=== PATIENT | female | born 1940 | race Caucasian/White ===

== ENCOUNTER → 2018-01-31 09:54 | Outpatient (CLI) | payer MEDICARE, OTHER, SELFPAY ==
[2018-01-31 12:13] LABS: Absolute Lymphocyte Count 1.72 X10^3/ul (0.83-4.51); Absolute Neutrophil Count 4.3 X10^3/uL (2.0-7.7); Basophil# 0.02 X10^3/uL; Basophil% 0.3 % (0-1); Eosinophil# 0.09 X10^3/uL; Eosinophils% 1.3 % (0-5); Hematocrit 40.6 % (37-47); Hemoglobin 13.2 g/dl (12.0-15.0); Lymphocyte # 1.72 X10^3/ul (4.0); Lymphocyte % 25.6 % (19-41); Mean Corp Hgb Conc 32.5 g/gl (32-36); Mean Corpuscular Hgb 31.5 pg (27.0-32.0); Mean Corpuscular Volume 96.9 fL (81-99); Mean Platelet Vol. 10.6 fl (6.2-12.0); Monocyte# 0.55 X10^3/uL; Monocyte% 8.2 % (0-10); Neutrophil # 4.32 X10^3/uL (2.7-7.7); Neutrophil % 64.5 % (47-70); Platelet Count 205 K/mm3 (150-450); RBC Distribution Width CV 12.2 % (11.6-14.6); RBC Distribution Width SD 41.9 fl (35.1-43.9); Red Blood Count 4.19 M/mm3 (4.2-5.4); White Blood Count 6.7 K/mm3 (4.4-11.0)
[2018-01-31 12:25] LABS: POSITIVE COUNT NO; POSITIVE DIFFERENTIAL NO; POSITIVE MORPHOLOGY NO
[2018-01-31 12:36] LABS: Albumin, Serum 3.5 g/dL (3.2-5.0); BUN 19 mg/dL (7-18); BUN/Creat Ratio 17.8 RATIO (10-20); Calcium,Total 8.6 mg/dL (8.5-10.1); Chloride 105 mmol/L (98-107); Cholesterol 179 mg/dL (200); Creatinine, Serum 1.07 mg/dL (0.55-1.02); EST Glomerular Filtration Rate 53 mL/min (>60); Est Glom Filt Rate - Afr Amer 64 mL/min (>60); Glucose 92 mg/dL (74-106); High Density Lipoprotein 60 mg/dL; Phosphorus 3.4 mg/dL (2.5-4.9); Potassium 4.2 mmol/L (3.5-5.1); Sodium Level 142 mmol/L (136-145); Thyroid Stim Hormone (TSH) 2.55 uIU/mL (0.358-3.74); Triglycerides 94 mg/dL; Very Low Density Lipoprotein 19 mg/dL (5-40)
== END ==
PROVIDERS: Family Provider Family Medicine; PCP Family Medicine; Visit Provider Family Medicine
DX: N18.2 Chronic kidney disease, stage 2 (mild) (principal)
CPT/HCPCS: 36415; 80061; 80069; 84443; 85025

== ENCOUNTER 2018-05-18 11:24 | Emergency (ER) | payer MEDICARE, OTHER, SELFPAY ==
[2018-05-18 11:36] VITALS: BP 158/97; PULSE 101; RESP 19; TEMP 36.8; O2SAT 98; BMI 27.1
[2018-05-18] MEDS: Diphth,Pertuss(Acell),Tet Vac 0.5 ML Vial IM (12:48)
--- NOTE | 2018-05-18 13:32 | ED.DCSUM_ITS ---
- ER Visit Summary Date of Service: 05/18/18 Chief Complaint: Laceration History of Present Illness: The patient is a [address] Raji Sams. She reports that just prior to coming emergency department she went to shut the car door and the corner but caught the back of her right leg causing a laceration. She reports she has pain that is 1 out of 10 severity. Her tetanus is not up-to-date. She denies any paresthesias distally or other injuries. Physical Examination: Vitals: Stable. Afebrile. General: Well-nourished and well-developed. Head: Normocephalic atraumatic. Neck: Supple, no lymphadenopathy. No JVD. Nontender. Cardiovascular: Regular rate and rhythm. No murmurs. Respiratory: No respiratory distress. Clear to auscultation bilaterally. Abdominal: Soft, nontender, nondistended, normal bowel sounds. No guarding, rebound, or peritoneal signs. Back: Nontender. Extremities: 8 cm laceration to the back of her right leg. No active bleeding. She is neurovascular intact distally. Skin: Normal color, no rash. Neurologic: Alert and oriented ?3. Cranial nerves II through XII are intact. Normal strength and sensation. Psych: Normal affect. Emergency Department Course and Treatment: Patient had her tetanus updated. She had the wound anesthetized and repaired. She tolerated it well. Treatment Plan: Patient will be discharged instructions with Dr. Raji Sams in 2 weeks for suture removal. Return to the emergency department for any worsening symptoms. Disposition: To home in improved and stable condition. Impression: 1. Laceration right leg, 8 cm, repaired. Procedure note: Wound was cleansed with chlorhexidine soap. Anesthetized with 1% lidocaine without epinephrine. Copiously irrigated with normal saline. Wound was explored there is no foreign material present. It was closed with 8 simple interrupted 4- 0 ethilon sutures. The patient tolerated it well. This note was generated with [employer] dictation software. It may contain incorrect words, spelling, and punctuation that were not noted in review of the chart prior to signing ED Disposition - Plan for ED Patient: Chief Complaint: Laceration Instructions: ED Laceration Ext Sutr Stap Tape Referrals: Raji Sams MD [Primary Care Provider] - 10-14 Days suture removal
[2018-05-18 14:20] VITALS: BP 138/94; PULSE 72; RESP 15; O2SAT 98
== END 2018-05-18 14:22 | disposition home or self-care (01) ==
PROVIDERS: Emergency Provider Emergency Medicine; Family Provider Family Medicine; PCP Family Medicine
DX: S81.811A Laceration without foreign body, right lower leg, initial encounter (principal); W26.8XXA Contact with other sharp object(s), not elsewhere classified, initial encounter; Y93.9 Activity, unspecified; Y92.9 Unspecified place or not applicable; I10 Essential (primary) hypertension; Z79.899 Other long term (current) drug therapy
CPT/HCPCS: 12004; 90471; 90715; 99284

== ENCOUNTER → 2018-08-10 10:33 | Outpatient (CLI) | payer MEDICARE, OTHER, SELFPAY ==
[2018-08-10 12:14] LABS: Vitamin D,25 Hydroxy 34.1 ng/mL (29.95-100.01)
[2018-08-10 12:28] LABS: AST(SGOT) 31 U/L (15-37); Alanine Aminotransfer ALT/SGPT 22 U/L (13-56); Albumin, Serum 3.6 g/dL (3.2-5.0); Alkaline Phosphatase 99 U/L (45-117); Anion Gap 9 (5-15); BUN 20 mg/dL (7-18); BUN/Creat Ratio 18.9 RATIO (10-20); Calcium,Total 8.4 mg/dL (8.5-10.1); Chloride 106 mmol/L (98-107); Creatinine, Serum 1.06 mg/dL (0.55-1.02); EST Glomerular Filtration Rate 53 mL/min (>60); Est Glom Filt Rate - Afr Amer 65 mL/min (>60); Globulin 3.6 g/dL (2.2-4.2); Glucose 90 mg/dL (74-106); Potassium 4.2 mmol/L (3.5-5.1); Protein, Total 7.2 g/dL (6.4-8.2); Sodium Level 141 mmol/L (136-145); Thyroid Stim Hormone (TSH) 2.66 uIU/mL (0.358-3.74)
--- OUTSIDE RECORDS SUMMARY | 2018-10-15 05:38 | XMS RPT_ITS ---
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) / Hospital N18.2(ICD-10) Repository PROCEDURES PROCEDURES No Procedure Records FoundRESULTS RESULTS VITAMIN D,25 HYDROXY Collected: 08/10/2018 Status: F Source: [place] 10:38 AM [facility] REPOSITORY Order Comment: Order Date: 02/14/18 Order Info: [id number] - VITD25 TYPE CODE TESTS RESULT OUT OF RANGE REFERENCE UNITS LAB L506.1000 29.95-100.01 ng/mL Normal Vitamin D 34.1 25-OH Result Comment: Vitamin D 25(OH) Status Range Deficiency <20 ng/mL (50nmol/L) Insuffciency 20 - 30 ng/mL (50 - 75 nmol/L) Sufficiency 30 - 100 ng/mL (75 - 250 nmol/L) Toxicity >100 ng/mL (>250 nmol/L) Performed By: #### L506.1000, L500.4050, L501.9520 #### [facility] [address] [place], [address] COMPREHENSIVE METABOLIC Collected: 08/10/2018 Status: F Source: [place] BASS 10:38 AM [facility] REPOSITORY Order Comment: Order Date: 02/14/18 Order Info: [id number] - CMP Order Info: [id number] - TSH TYPE CODE TESTS RESULT OUT OF RANGE REFERENCE UNITS LAB L501.0100 74-106 mg/dL Normal GLU 90 Result Comment: Please note revised GLUCOSE reference range effective 2017. LAB L501.1000 7-18 mg/dL High BUN 20 LAB L501.1100 0.55-1.02 mg/dL High CREAT,SERUM 1.06 Result Comment: The validity of the calculated GFR AND GFRAA in patients over 70 years has not been determined. Clinical correlation is essential. LAB L501.1110 >60 mL/min Low EST GFR 53 Result Comment: Non- GFR Calc LAB L501.1115 >60 mL/min Normal EST GFR - AA 65 Result Comment: GFR Calc LAB L501.1300 10-20 RATIO Normal BUN/CRE 18.9 LAB L501.1500 6.4-8.2 g/dL T Normal PROT 7.2 LAB L501.1800 3.2-5.0 g/dL Normal ALB 3.6 LAB L501.1950 2.2-4.2 g/dL Normal GLOB 3.6 LAB L501.2000 0.9-2.4 RATIO Normal A/G 1.0 LAB L501.2200 8.5-10.1 mg/dL Low CA 8.4 LAB L501.4100 15-37 U/L Normal AST 31 LAB L501.4305 45-117 U/L Normal ALK P 99 LAB L501.4405 13-56 U/L Normal ALT 22 LAB L501.4600 0.20-1.00 mg/dL High T BILI 1.90 LAB L501.5300 136-145 mmol/L NA Normal 141 LAB L501.5600 3.5-5.1 mmol/L K Normal 4.2 LAB L501.5900 98-107 mmol/L CL Normal 106 LAB L501.6100 21.0-32.0 mmol/L Normal CO2 26.0 LAB L501.6200 5-15 Normal GAP 9 Performed By: #### L506.1000, L500.4050, L501.9520 #### [facility] [address] [place], [address] THYROID STIM HORMONE Collected: 08/10/2018 Status: F Source: [place] (TSH) 10:38 AM [facility] REPOSITORY Order Comment: Order Date: 02/14/18 Order Info: [id number] - CMP Order Info: 3016-3 - TSH TYPE CODE TESTS RESULT OUT OF RANGE REFERENCE UNITS LAB L501.9520 0.358-3.74 uIU/mL Normal TSH 2.66 Performed By: #### L506.1000, L500.4050, L501.9520 #### [facility] [address] [place], [address] EMERGENCY DEPARTMENT Observed: 05/18/2018 Status: F Source: [place] SUMMARY 6:15 PM [facility] REPOSITORY [facility] Medical Records Department [address] [place] [address] Emergency Department Summary 05/18/18 1258 MR#: [id number] Acct: [id number] Name: DREW BROWNE I Rep #: [id number] : 1940 77 From: Desmond Auguste MD PCP: Raji Sams MD Status: DEP ER - ER Visit Summary Date of Service: 05/18/18 Chief Complaint: Laceration History of Present Illness: The patient is a [address] Raji Sams. She reports that just prior to coming emergency department she went to shut the car door and the corner but caught the back of her right leg causing a laceration. She reports she has pain that is 1 out of 10 severity. Her tetanus is not up-to-date. She denies any paresthesias distally or other injuries. Physical Examination: Vitals: Stable. Afebrile. General: Well-nourished and well-developed. Head: Normocephalic atraumatic. Neck: Supple, no lymphadenopathy. No JVD. Nontender. Cardiovascular: Regular rate and rhythm. No murmurs. Respiratory: No respiratory distress. Clear to auscultation bilaterally. Abdominal: Soft, nontender, nondistended, normal bowel sounds. No guarding, rebound, or peritoneal signs. Back: Nontender. Extremities: 8 cm laceration to the back of her right leg. No active bleeding. She is neurovascular intact distally. Skin: Normal color, no rash. Neurologic: Alert and oriented 3. Cranial nerves II through XII are intact. Normal strength and sensation. Psych: Normal affect. Emergency Department Course and Treatment: Patient had her tetanus updated. She had the wound anesthetized and repaired. She tolerated it well. Treatment Plan: Patient will be discharged instructions with Dr. Raji Sams in 2 weeks for suture removal. Return to the emergency department for any worsening symptoms. Disposition: To home in improved and stable condition. Impression: 1. Laceration right leg, 8 cm, repaired. Procedure note: Wound was cleansed with chlorhexidine soap. Anesthetized with 1% lidocaine without epinephrine. Copiously irrigated with normal saline. Wound was explored there is no foreign material present. It was closed with 8 simple interrupted 4-0 ethilon sutures. The patient tolerated it well. This note was generated with [employer] dictation software. It may contain incorrect words, spelling, and punctuation that were not noted in review of the chart prior to signing ED Disposition - Plan for ED Patient: Chief Complaint: Laceration Instructions: ED Laceration Ext Sutr Stap Tape Referrals: Raji Sams MD [Primary Care Provider] - 10-14 Days suture removal What to do if you have Problems For any increased pain, shortness of breath, bleeding, nausea or vomiting, chest pain, or any unexpected problems, contact your Primary Care Provider. Call [facility] ([phone]) or report to the closest Emergency Room. Call 911 if necessary. 05/18/18 2459 <Electronically signed by Desmond Auguste MD> Date Desmond Auguste MD Cosigner Signature (If Indicated): Date CC: Raji Sams MD CBC W/DIFF, AUTOMATED Collected: 01/31/2018 Status: F Source: [place] 10:00 AM [facility] REPOSITORY TYPE CODE TESTS RESULT OUT OF RANGE REFERENCE UNITS LAB L100.1000 4.4-11.0 K/mm3 Normal WBC 6.7 LAB L100.1200 4.2-5.4 M/mm3 Low RBC 4.19 LAB L100.1300 12.0-15.0 g/dl Normal HGB 13.2 LAB L100.1400 37-47 % Normal HCT 40.6 LAB L100.1500 81-99 fL Normal MCV 96.9 LAB L100.1600 27.0-32.0 pg Normal MCH 31.5 LAB L100.1700 32-36 g/gl Normal MCHC 32.5 LAB L100.1810 11.6-14.6 % Normal RDW CV 12.2 LAB L100.1820 35.1-43.9 fl Normal RDW SD 41.9 LAB L100.1900 150-450 K/mm3 Normal PLT 205 LAB L100.2000 6.2-12.0 fl Normal MPV 10.6 LAB L100.2100 47-70 % Normal NEUT% 64.5 LAB L100.2200 19-41 % Normal LY% 25.6 LAB L100.2300 0-10 % Normal MONO% 8.2 LAB L100.2400 0-5 % Normal EO% 1.3 LAB L100.2500 0-1 % Normal BASO% 0.3 LAB L100.2550 0.0-0.9 % Normal IM GRAN % 0.100 Result Comment: IG% - Immature Granulocytes (promyelocytes, myelocytes and metamyelocytes) > 1% indicates that a LEFT SHIFT is Present. LAB L100.2620 2.0-7.7 X10 3/uL Normal Absolute Neut 4.3 LAB L100.2720 0.83-4.51 X10 3/ul Normal Absolute Lymph 1.72 Performed By: #### L100.0100 #### [facility] [address] [place], [place], [id number] RENAL PROFILE Collected: 01/31/2018 Status: F Source: [place] 10:00 AM [facility] REPOSITORY TYPE CODE TESTS RESULT OUT OF RANGE REFERENCE UNITS LAB L501.0100 74-106 mg/dL Normal GLU 92 Result Comment: Please note revised GLUCOSE reference range effective 2017. LAB L501.1000 7-18 mg/dL High BUN 19 LAB L501.1100 0.55-1.02 mg/dL High CREAT,SERUM 1.07 Result Comment: The validity of the calculated GFR AND GFRAA in patients over 70 years has not been determined. Clinical correlation is essential. LAB L501.1110 >60 mL/min Low EST GFR 53 Result Comment: Non- GFR Calc LAB L501.1115 >60 mL/min Normal EST GFR - AA 64 Result Comment: GFR Calc LAB L501.1300 10-20 RATIO Normal BUN/CRE 17.8 LAB L501.1800 3.2-5.0 g/dL Normal ALB 3.5 LAB L501.2200 8.5-10.1 mg/dL CA Normal 8.6 LAB L501.2300 2.5-4.9 mg/dL Normal PHOS 3.4 LAB L501.5300 136-145 mmol/L NA Normal 142 LAB L501.5600 3.5-5.1 mmol/L K Normal 4.2 LAB L501.5900 98-107 mmol/L CL Normal 105 LAB L501.6100 21.0-32.0 mmol/L Normal CO2 27.0 Performed By: #### L500.3600, L500.4100, L501.9520 #### [facility] [address] [place], [address] LIPID PROFILE Collected: 01/31/2018 Status: F Source: [place] 10:00 AM [facility] REPOSITORY TYPE CODE TESTS RESULT OUT OF RANGE REFERENCE UNITS LAB L501.4900 200 mg/dL Normal CHOL 179 Result Comment: <200 mg/dL Desirable 200-240 mg/dL Borderline >240 mg/dL High Risk LAB L501.5000 mg/dL Normal TRIG 94 Result Comment: The drugs N-Acetylcysteine and Metamizole may falsely depress this assay. Serum Triglycerides Reference Interval Normal <150 mg/dL Borderline high 150 - 199 mg/dL High 200 - 499 mg/dL Very High > or = 500 mg/dL LAB L501.6400 mg/dL Normal HDL 60 Result Comment: The drugs N-Acetylcysteine and Metamizole may falsely depress this assay. Reference Range HDL <40 mg/dL Low HDL Cholesterol HDL >or= 60 mg/dL High HDL Cholesterol LAB L501.6500 0-130 mg/dL Normal LDL 100 LAB L501.6600 5-40 mg/dL Normal VLDL 19 Performed By: #### L500.3600, L500.4100, L501.9520 #### [facility] [address] [place], [address] THYROID STIM HORMONE Collected: 01/31/2018 Status: F Source: [place] (TSH) 10:00 AM [facility] REPOSITORY TYPE CODE TESTS RESULT OUT OF RANGE REFERENCE UNITS LAB L501.9520 0.358-3.74 uIU/mL Normal TSH 2.55 Performed By: #### L500.3600, L500.4100, L501.9520 #### [facility] [address] [facility] [place], [address] ALLERGIES ALLERGIES DATE TYPE / CODE NAME / CODE REACTION SEVERITY SOURCE 09/25/2015 Drug No Known Unknown [facility] Allergy/4160 Allergies/F00 Hospital 70530(SNOMED 3903593(RXNOR Repository CT) M) ENCOUNTERS ENCOUNTERS ADMIT/DISCHARGE ACCOUNT ADMITTING ENCOUNTER LOCATION SOURCE NUMBER CLASS 08/10/2018 [id number] Ambulatory [place] 5 [facility] ing:MFPLAB Repository 05/18/2018/ [id number] [place] 1 [facility] ing:ED Repository 01/31/2018 [id number] Ambulatory [place] 9 [facility] ing:MFPLAB Repository PAYERS PAYERS ENCOUNTER GUARANTOR PAYER SUBSCRIBER SOURCE 08/10/2018 QUANG Primary DREW I [place] [id number] Insurance:MEDICARE STEINERDOB: [facility] [id number] Repository [address]Yol: [phone] [id number] [phone] () Date:2018-08-10 08/10/2018 Secondary DREW I [place] Insurance:MEDICO STEINERDOB: [facility] CORPPolicy Number: [id number] Hospital [id number] Repository Date:7097-10-63[address] [address] [address]TI: 08/10/2018 Tertiary NOT GIVENUNK [place] Insurance:SELF PAY [facility] Number: Effective Repository Date:2018-08-10 05/18/2018 QUANG Primary DREW BROWNEDOB: [place] [id number] Insurance:MEDICARE [id number] [facility] PART [address] [place], [place] Number: Repository [address]Bdd: 330 [id number] [phone] () Date:2018-05-18 05/18/2018 Secondary DREW VIOLETTEERDOB: [place] Insurance:GPM [id number] Number: [facility] [id number] Repository Date:[id number] [employer] [address], [place] [address]YD: 05/18/2018 Tertiary NOT GIVENUNK [place] Insurance:SELF PAY [facility] Number: Effective Repository Date:2018-05-18 01/31/2018 Quang Primary DREW BROWNEDOB: [place] [id number] Insurance:MEDICARE [id number] [facility] [address] [place], [place] Number: Repository [id number]: 330 [id number] [phone] () Date:2018-01-31 01/31/2018 Secondary DREW VIOLETTEERDOB: [place] Insurance:GPM [id number] [facility] [id number] Repository Date:1954-54-27PDPOIG EMENT [address], [place] [address]WI: 01/31/2018 Tertiary NOT GIVENUNK [place] Insurance:SELF PAY [facility] Number: Effective Repository Date:2018-01-31
== END ==
PROVIDERS: Family Provider Family Medicine; PCP Family Medicine; Visit Provider Family Medicine
DX: N18.2 Chronic kidney disease, stage 2 (mild) (principal)
CPT/HCPCS: 36415; 80053; 82306; 84443

== ENCOUNTER → 2019-02-02 | Outpatient (CLI) | payer MEDICARE, OTHER, SELFPAY ==
[2019-02-02 14:33] LABS: ALB/GLOB Ratio 0.9 RATIO (0.9-2.4); AST(SGOT) 25 U/L (15-37); Alanine Aminotransfer ALT/SGPT 24 U/L (13-56); Albumin, Serum 3.5 g/dL (3.2-5.0); Alkaline Phosphatase 87 U/L (45-117); Anion Gap 7 (5-15); BUN 23 mg/dL (7-18); BUN/Creat Ratio 21.5 RATIO (10-20); Calcium,Total 8.9 mg/dL (8.5-10.1); Chloride 107 mmol/L (98-107); Creatinine, Serum 1.07 mg/dL (0.55-1.02); EST Glomerular Filtration Rate 53 mL/min (>60); Est Glom Filt Rate - Afr Amer 64 mL/min (>60); Globulin 3.8 g/dL (2.2-4.2); Glucose 87 mg/dL (74-106); Protein, Total 7.3 g/dL (6.4-8.2); Sodium Level 142 mmol/L (136-145)
[2019-02-02 14:47] LABS: Microalbumin,Random Urine 5.6 mg/L (NO RANGE EST.); Microalbumin:Creatinine Ratio 6.3 mg/g CRE (<30 mg/g CRE)
== END | disposition home or self-care (01) ==
LOC: MFPLAB 11:34
PROVIDERS: Family Provider Family Medicine; PCP Family Medicine; Visit Provider Family Medicine
DX: N18.2 Chronic kidney disease, stage 2 (mild) (principal)
CPT/HCPCS: 36415; 80053; 82043; 82570

== ENCOUNTER → 2019-08-15 10:30 | Outpatient (CLI) | payer MEDICARE, OTHER, SELFPAY ==
[2019-08-15 12:36] LABS: Anion Gap 2 (5-15); BUN 18 mg/dL (7-18); BUN/Creat Ratio 17.6 RATIO (10-20); Calcium,Total 9.2 mg/dL (8.5-10.1); Chloride 108 mmol/L (98-107); Cholesterol 176 mg/dL (200); Creatinine, Serum 1.02 mg/dL (0.55-1.02); EST Glomerular Filtration Rate 56 mL/min (>60); Est Glom Filt Rate - Afr Amer 67 mL/min (>60); Glucose 89 mg/dL (74-106); High Density Lipoprotein 59 mg/dL; Potassium 4.3 mmol/L (3.5-5.1); Sodium Level 141 mmol/L (136-145); Triglycerides 94 mg/dL; Very Low Density Lipoprotein 19 mg/dL (5-40)
[2019-08-15 14:31] LABS: Microalbumin,Random Urine < 5.0 mg/L (NO RANGE EST.)
== END ==
PROVIDERS: PCP Family Medicine; Visit Provider Family Medicine
DX: I10 Essential (primary) hypertension (principal)
CPT/HCPCS: 36415; 80048; 80061; 82043; 82570

== ENCOUNTER → 2019-09-27 10:36 | Outpatient (CLI) | payer MEDICARE, OTHER, SELFPAY ==
--- NOTE | 2019-09-27 10:44 | BI_ITS ---
MAMMOGRAPHY - BILATERAL SCREENING REASON FOR EXAM: Female, 79 years old. Routine annual screening examination. PERTINENT HISTORY: Non-contributory. TECHNIQUE: Digital bilateral breast conner (3D mammographic acquisition) in the CC and MLO projections. 2-D mediolateral oblique (MLO) and craniocaudad (CC) views of both breasts were obtained. CAD: Full Field Digital Mammography with Computer Added Detection was performed. COMPARISON: Comparison is made with prior study dated April 21, 2016 and March 14, 2015. FINDINGS: Breast Composition: There are scattered areas of fibroglandular density. There are no dominant masses or suspicious calcifications. No other significant abnormalities are identified. There has been no significant change since the prior study. BI/SCREEN MAMM (CAD) W/CONNER BILAT IMPRESSION: Stable bilateral screening mammogram. Yearly follow-up mammogram recommended. (A) ASSESSMENT CATEGORY: BIRADS Category 1: Negative. A letter regarding these results will be sent to the patient by the facility within 30 days. Approximately 10% of breast cancers are not detected by mammography. A normal mammogram should not delay biopsy of a clinically suspicious abnormality. [id number] Electronically Signed: Alexy Samson, at 13:40 EST , Service support ,
== END ==
PROVIDERS: PCP Family Medicine; Referring Provider Family Medicine; Visit Provider Family Medicine
DX: Z00.00 Encounter for general adult medical examination without abnormal findings (principal); Z12.31 Encounter for screening mammogram for malignant neoplasm of breast
CPT/HCPCS: 77063; 77067

== ENCOUNTER → 2020-03-04 11:52 | Outpatient (CLI) | payer MEDICARE, OTHER, SELFPAY | PROVIDERS: PCP Family Medicine; Visit Provider Family Medicine | DX: Z00.00 Encounter for general adult medical examination without abnormal findings (principal) ==

== ENCOUNTER → 2020-03-13 17:07 | Outpatient (CLI) | payer MEDICARE, OTHER, SELFPAY ==
--- NOTE | 2020-03-13 17:10 | RAD_ITS ---
STUDY: X-RAY - LEFT KNEE REASON FOR EXAM: Female, 79 years old. osteoarthritis of knees TECHNIQUE: 4 view(s) of the knee. COMPARISON: 03/06/2013 FINDINGS: Normal visualized distal femur. Normal visualized proximal tibia and fibula. Normal proximal tibiofibular articulation. Normal medial femorotibial compartment. There is severe degenerative arthrosis of the lateral femorotibial compartment with severe joint space narrowing. There is mild degenerative arthrosis of the patellofemoral articulation. The soft tissue structures are unremarkable. RAD/Knee 4 or More Views IMPRESSION: Bicompartmental osteoarthritis as described. Electronically Signed: Félix Robbins MD at 22:35 EDT Tel , Service support ,
--- NOTE | 2020-03-13 17:10 | RAD_ITS ---
STUDY: X-RAY - PELVIS AND RIGHT HIP REASON FOR EXAM: Female, 79 years old. osteoarthritis of right hip TECHNIQUE: 2 views of the pelvis and hip. COMPARISON: 10/08/2015 FINDINGS: There is a non-specific bowel gas pattern. Normal visualized soft tissue structures. Normal bilateral iliac wings, sacroiliac joints and visualized sacrum. Normal bilateral superior and inferior pubic rami. Normal pubic symphysis. Normal bilateral ischial tuberosities. Left hip arthroplasty with normal alignment. Severe right hip osteoarthritis. Pelvic phleboliths. RAD/HIP, UNI W/ Pelvis 2-3 Views IMPRESSION: Severe right hip osteoarthritis. Electronically Signed: Félix Robbins MD at 20:53 EDT Tel , Service support ,
--- NOTE | 2020-03-13 17:10 | RAD_ITS ---
STUDY: X-RAY - RIGHT KNEE REASON FOR EXAM: Female, 79 years old. osteoarthritis of knees TECHNIQUE: 4 view(s) of the knee. COMPARISON: 03/06/2013 FINDINGS: Normal visualized distal femur. Normal visualized proximal tibia and fibula. Normal proximal tibiofibular articulation. There is mild degenerative arthrosis of the medial femorotibial compartment. There is mild degenerative arthrosis of the lateral femorotibial compartment. There is moderate degenerative arthrosis of the patellofemoral articulation. The soft tissue structures are unremarkable. RAD/Knee 4 or More Views IMPRESSION: Tricompartmental osteoarthritis as described. Electronically Signed: Félix Robbins MD at 22:28 EDT Tel , Service support ,
== END ==
PROVIDERS: PCP Family Medicine; Referring Provider Family Medicine; Visit Provider Family Medicine
DX: M16.11 Unilateral primary osteoarthritis, right hip (principal); M17.0 Bilateral primary osteoarthritis of knee
CPT/HCPCS: 73502; 73564

== ENCOUNTER → 2020-06-11 13:24 | Outpatient (CLI) | payer MEDICARE, OTHER, SELFPAY ==
[2020-06-10 13:52] VITALS: BMI 28.5
== END ==
PROVIDERS: PCP Family Medicine; Referring Provider Surgery; Visit Provider Surgery
DX: Z86.010 Personal history of colon polyps (principal); Z80.0 Family history of malignant neoplasm of digestive organs
CPT/HCPCS: 82274

== ENCOUNTER 2020-09-06 09:23 | Outpatient (RCR) | payer MEDICARE, OTHER, SELFPAY ==
[2020-06-10 13:52] VITALS: BMI 28.5
== END 2020-09-06 23:59 ==
LOC: IMMUN 09:23
PROVIDERS: PCP Family Medicine; Referring Provider Family Medicine; Visit Provider Family Medicine
DX: Z23 Encounter for immunization (principal)
CPT/HCPCS: 0011A; 0012A

== ENCOUNTER 2020-10-09 06:56 | Observation (INO) | payer MEDICARE, OTHER, SELFPAY ==
[2020-06-10 13:52] VITALS: BMI 28.5
--- NOTE | 2020-09-25 12:39 | PCM.HP.BLA ---
History and Physical History and Physical [facility] Patient Name: Emily Ortez : 1940 From: ART MONTERO PA-C DATE OF SURGERY: 10/09/2020 SCHEDULED PROCEDURE: right total hip arthroplasty and left knee corticosteroid injection HISTORY OF PRESENT ILLNESS: Preoperative history and physical exam was performed on September 25, 2020. This is a 80-year-old female who is had ongoing pain in the right hip were over 5 years. This is been getting more progressive with pain over the past several months. She has had continued pain in bilateral knees as well. Patient's pain can reach as high as a 7/10 and on average 5/10. She has pain that is intermittent, sharp, stabbing, sore. Pain is increased with going up and downstairs. She does complain of right groin pain. She has difficult time with activities of daily living including housework. Patient has attempted rest, elevation as well as physical therapy, home exercises with no relief in symptoms. She has attempted inpatient care manager rn with no relief in symptoms. She has tried [id number] Tylenol without relief. Her pain in the left knee is over the lateral joint line. Patient denies previous surgery on the right hip. She does have previous history of a left direct anterior total hip arthroplasty on October 08, [address] Pablo Lepe. Patient has medical history pertinent for hypertension. Denies any chest pain, shortness of breath, fevers chills, or fevers. We are obtaining surgical clearance from her primary care physician Dr. Sams. After failing conservative measures and discussing treatment options with Dr. Pablo Lepe, the patient does wish to proceed with a right direct anterior total hip arthroplasty and left knee corticosteroid injection. REVIEW OF SYSTEMS: ROS: Const: Denies change in appetite, fever,or weight change. CV: Denies chest pain, heart murmur and irregular heartbeat. Resp: Denies cough, pneumonia, SOB, tuberculosis and wheezing. GI: Reports constipation, but denies diarrhea, difficulty swallowing, heartburn, nausea, bloody stools and vomiting. : Urinary: denies incontinence. Musculo: Reports limp, trouble walking and weakness, but denies leg swelling. Skin: Denies Raynaud's, history of shingles and tattoo. Neuro: Denies ambulatory dysfunction, dizziness, numbness/tingling and tremor. Psych: Reports insomnia, but denies anxiety and stress. Steven/Lymph: Denies anemia, bleeding/bruising tendency and past transfusion. Reviewed and updated. PAST MEDICAL HISTORY: Advance Care Plan: Other Directive, LIVING WILL Effective Date: 08/29/2015 Comments: ROBERT CANTU Other Directive, POA Effective Date: 08/29/2015 Comments: ROBERT CANTU PMH: Medical Problems: Arthritis, Hard of Hearing, High Blood Pressure Accidents: Fracture - LT FOOT - 12 YEARS AGO Surgical Hx: Gallbladder - (2003) @[facility] DR. CLANCY Tonsillectomy - (1952) LT Anterior THR - (10/08/2015) [email or web address] Anesthesia Complications: Vomiting Assistive Devices: Glasses Reviewed, no changes. SOCIAL HISTORY: SH: Marital: .Occupation: Retired.Work Status: Retired.Hand Dominance: Right-handed. Personal Habits: Cigarette Use: Never Smoked Cigarettes.Alcohol: Denies use.Drug Use: Denies Use.Enjoy Exercising: Exercises 1-3 x/month. Reviewed, no changes. VITALS: Ht: 63 Wt: 160lb Wt k.576 BMI: 28.3 BP: 142/90 Pulse: 70 Resp: 15 T: 96.6 T: 35.9C Pain Level: 5 ALLERGIES: Codeine MEDICATIONS: Quinapril HCL 5 mg one PO daily PRE-OP EXAM: General appearance:NORMAL Other: Eyes: Conjunctivae and lids: NORMAL Pupils: ERR Ears, Nose, Mouth, and Throat: NORMAL Other: Inspection of lips, teeth and gums: NORMAL Other: Neck: Examination of neck: no masses noted. Respiratory: Assessment of respiratory effort: NORMAL Other: Auscultation of lungs: clear to auscultation no wheezes, rhonchi or rales. Cardiovascular: Auscultation of heart: regular rate and rhythm, no murmurs, gallops or rubs. Exam of carotid arteries: NORMAL Other: Gastrointestinal: Exam of abdomen: soft, nontender, nondistended bowel sounds present. PHYSICAL EXAMINATION: Right hip is cool to touch without erythema or signs of infection. She has increased pain with range of motion. Flexion 70, internal rotation neutral, external rotation 30. Left knee has valgus alignment with moderate effusion. Range of motion 0 extension 112 flexion. Tenderness to palpation along the lateral joint line. Patient does walk with a slight limping gait. IMAGING STUDIES: X-rays were obtained on September 25, 2020 at [facility] including AP pelvis of the right hip which reveals joint space narrowing, subchondral sclerosis, osteophyte formation consistent with severe hypertrophic osteoarthritis. Left knee x-rays reveal valgus alignment with lateral joint space narrowing, subchondral sclerosis, osteophyte formation consistent with severe tricompartmental osteoarthritis with bony erosions in the lateral compartment. Right knee also reveals valgus alignment with lateral joint space narrowing, subchondral sclerosis, osteophyte formation consistent with severe tricompartmental osteoarthritis. IMPRESSION: 1. Severe right hip osteoarthritis 2. 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 Presence of left total hip arthroplasty 2016 4. 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 Hypertension PLAN: Dr. Pablo Lepe did discuss and review with the patient all treatment options including surgical versus nonsurgical options. Patient does wish to proceed with the above-stated procedure. Potential risks, benefits, and complications of the procedure were discussed in detail including but not limited to , infection, nerve and blood vessel damage, persistent pain, numbness, tingling, paresthesias, blood clot, pulmonary embolism, and requirement for possible further surgery. The patient expressed full understanding and has no further questions for the doctor. Patient does agree to proceed with the above-stated procedure and has signed the surgery consent form. We discussed the current risks associated with COVID 19. This does include the risk of exposure while in the hospital. Patient was reassured local hospitals have low infection rates and are taking all necessary precautions to avoid exposure to patients. In addition, we discussed strategies that can be used to help limit exposure including those that limit the patient's time in the hospital. Also using strategies to limit the patient's need for continued inpatient services after being discharged from the hospital. Patient was notified that we will need to comply with any screening or testing the hospital wishes to perform or that surgery may be delayed for any positive results. This dictation was created using voice recognition software. Phonetic and/or grammatical errors may exist. ___ I have re-examined the patient. There are no clinical changes since date of exam. ___ See progress notes for changes. ___ Dictated on admission Date: Time:
--- NOTE | 2020-09-27 08:49 | EKG12_ITS ---
Test Reason : PRE OP Blood Pressure : / mmHG Vent. Rate : 072 BPM Atrial Rate : 072 BPM P-R Int : 184 ms QRS Dur : 080 ms QT Int : 386 ms P-R-T Axes : 034 -07 034 degrees QTc Int : 422 ms Normal sinus rhythm Low voltage QRS Poor R wave progression Anterior IL, age undetermined, cannot be excluded Borderline ECG Confirmed by PETER ROONEY, BERTO ([id number]), offline editor NAM FRAGOSO ([id number]) on 09/30/2020 2:07:03 PM Referred By: Pablo Lepe Confirmed By:BERTO GREEN MD
[2020-09-27 10:18] LABS: Absolute Lymphocyte Count 2.35 X10^3/uL (0.83-4.51); Absolute Neutrophil Count 3.4 X10^3/uL (2.0-7.7); Basophil# 0.03 X10^3/uL; Basophil% 0.5 % (0-1); Eosinophil# 0.06 X10^3/uL; Hematocrit 41.9 % (37-47); Lymphocyte # 2.35 X10^3/ul (4.0); Lymphocyte % 37.4 % (19-41); Mean Corpuscular Hgb 30.9 pg (27.0-32.0); Mean Corpuscular Volume 99.5 fL (81-99); Mean Platelet Vol. 10.4 fl (6.2-12.0); Monocyte# 0.44 X10^3/uL; NRBC Flagged by Analyzer 0 % (0-5); Neutrophil % 53.9 % (47-70); Platelet Count 273 K/mm3 (150-450); RBC Distribution Width SD 43.8 fl (35.1-43.9); Red Blood Count 4.21 M/mm3 (4.2-5.4); White Blood Count 6.3 K/mm3 (4.4-11.0)
[2020-09-27 10:44] LABS: Anion Gap 4 (5-15); BUN 22 mg/dL (7-18); BUN/Creat Ratio 22.8 RATIO (10-20); Calcium,Total 8.9 mg/dL (8.5-10.1); Chloride 107 mmol/L (98-107); Creatinine, Serum 0.96 mg/dL (0.55-1.02); EST Glomerular Filtration Rate 59 mL/min (>60); Est Glom Filt Rate - Afr Amer 72 mL/min (>60); Glucose 91 mg/dL (74-106); Potassium 4.2 mmol/L (3.5-5.1); Sodium Level 142 mmol/L (136-145)
[2020-09-27 10:47] LABS: Magnesium 2.2 mg/dL (1.6-2.6)
[2020-10-09] VITALS (17 sets, daily range): BP systolic 114–138; BP diastolic 54–92; PULSE 64–96; RESP 16–18; TEMP 36.1–36.9; O2SAT 92–100; BMI 28.4
[2020-10-09] MEDS: Lactated Ringers 1,000 ML 999 ML IV ×2 (06:25→09:16)
[2020-10-09] MEDS: Gabapentin 600 MG Tablet PO (06:25)
[2020-10-09] MEDS: Lactated Ringers 1,000 ML 75 ML IV (06:26)
[2020-10-09] MEDS: Celecoxib 200 MG Capsule 400 MG PO (06:26)
[2020-10-09] MEDS: Acetaminophen 500 MG Tablet 1000 MG PO ×3 (06:26→22:16)
--- NOTE | 2020-10-09 06:57 | RAD_ITS ---
STUDY: X-RAY - PELVIS AND RIGHT HIP REASON FOR EXAM: Female, 80 years old. Post Op -- AP both hips on single deni/lateral of op hip PACU TECHNIQUE: 2 views of the pelvis and hip. COMPARISON: Comparison is made with prior study dated 03/13/2020. FINDINGS: The patient is status post right total hip replacement. There is good alignment. Postoperative soft tissue changes. RAD/Hip Min 2 Views (Portable) IMPRESSION: Status post right total hip replacement. There is good alignment. Postoperative soft tissue changes. Electronically Signed: Alexy Samson MD at 10:04 EDT , Service support ,
[2020-10-09] MEDS: Cefazolin 2 GM in 0.9% Normal Saline 100 ML IV (07:26)
--- NOTE | 2020-10-09 07:30 | RAD_ITS ---
STUDY: X-RAY - PELVIS AND RIGHT HIP REASON FOR EXAM: Female, 80 years old. PAIN TECHNIQUE: 1 views of the pelvis and hip. COMPARISON: 03/13/2020 FINDINGS: Fluoroscopy the right hip was utilized and operating room during arthroplasty and 4 images are somewhat limited for interpretation... RAD/Hip 1 view with Pelvis IMPRESSION: Fluoroscopy during hip arthroplasty. Electronically Signed: Shelton Chandler MD at 12:22 EDT Tel , Service support ,
[2020-10-09] MEDS: Bupivacaine 0.25% 30 ML Vial (07:36)
[2020-10-09] MEDS: Triamcinolone Acetonide 40 MG/ML Vial (07:36)
[2020-10-09 07:50] LABS: Bedside Glucose 80 mg/dL (70-110)
[2020-10-09] MEDS: dexAMETHasone 10 MG/ML Vial IV (07:58)
--- NOTE | 2020-10-09 08:40 | OP.PCM_ITS ---
Report of Operation Date of Procedure: 10/09/20 Pre-Operative Diagnosis: Right hip primary osteoarthritis. Left knee primary osteoarthritis Post-Operative Diagnosis: Right hip primary osteoarthritis. Left knee primary osteoarthritis Surgery/Procedure Performed:: Right minimally invasive direct anterior total replacement. Left knee intra-articular injection Description of Surgical Findings:: Stable hip with equal leg lengths sandwich counter attendant: Christi Briggs Anesthesiologist: Eyad Boone Special Medications: 2 g Ancef, 1 g TXA at incision, 1 g TXA closure, 10 mg Dec adron, joint cocktail (5 mg Duramorph, 30 mL of 0.5% Ropivicaine, 1000 units of epinephrine, 30 mg of Toradol) Specimen's removed: Bony cuts Estimated Blood Loss (mL): 300 Fluids Replaced: 1800 ml crystalloid Description of Procedure: Components used: 1. Accolade 2 Mesa femoral stem size 3 127? 2. Sangeetha trident 2 acetabular shell size 50 mm 3. Sangeetha X3 polyethylene D 4. Sangeetha Biolox delta 36mm, 0mm femoral head Brief history operative indications: 80 yo f who failed conservative measures for their hip osteoarthritis. X-rays were consistent with osteoarthritis including joint space narrowing, osteophyte formation and subchondral cysts. Total hip replacement was discussed with the patient with risks and benefits including but not limited to blood loss, DVTs, PEs, neurovascular damage, dislocation, general risks of anesthesia including loss of life. Patient demonstrated an understanding medical clearance is obtained the patient was consented for surgery. Procedure: On the date of procedure the patient's r hip and left knee was marked in the preoperative area. Patient was then taken back to the operating room where anesthesia assumed control of the C-spine and airway and administered anesthetic. Patient was transferred to the operating table and placed in the silva pine position. The hips were placed at the break of the bed and a sacral bump was placed. After patient was comfortable and adequately positioned we directed our attention to the left knee where a timeout was called. When agreed upon the side, site, procedure to be performed, patient's identity and antibiotics given. Left suprapatellar area was prepped laterally. 2 mL of Kenalog and 4 mL of q uarter percent bupivacaine were injected using a 22-gauge needle. Patient tolerated this well and a Band-Aid was placed. The right lower extremity was then prepped out in a sterile fashion using chlorhexidine while the surgeon scrubbed. The PA was vital in the positioning of the patient. Upon reentering the room the r lower extremity was draped in the standard orthopedic fashion and the incision was marked. A timeout was called and everyone agreed upon the side, the site, the procedure be performed, antibody given, and patient's identity. At this time incision was made through skin, subcutaneous tissue, and fat down to fascia. The fascia was then incised and the TFL was retracted laterally. A retractor was placed on the lateral border of the femoral neck. Attention was directed to the inferior portion of the approach and all crossing vessels were identified and appropriately coagulated. A retractor was then placed on the medial portion of the femoral neck. The anterior capsule was then cleared of all soft tissue and then H shaped capsulotomy was made. The retractors were then placed inside the capsule. The femoral neck was identified and a cleanup cut was made. At this time a power corkscrew was used to remove the femoral head. Attention was then turned toward the acetabulum where the soft tissues were appropriately retracted and the acetabulum was sequentially reamed to 50 mm. A 50 mm cup was then selected and impacted into place. Acetabular liner was impacted into place and locking mechanism was verified. The position of the acetabular cup was then verified under live fluoroscopy. Attention was then turned to the femur. Soft tissue releases on the medial and lateral femoral neck were appropriately done, the leg was externally rotated and lateralized. A Burks retractor was placed medially and proximally to the greater trochanter this allowed appropriate visualization and exposure of the femoral canal. Rongeour was then used to remove excess lateral bone. A canal finder and entry broach were used to open the proximal canal. Once we verified we were down the femoral canal we subsequently broached up to a size 3 femur. The appropriate neck was placed in the previously selected head was trialed with a 0 mm neck. Traction was pulled and the hip was reduced with internal rotation. Once it was appropriately reduced and stability was checked. There was minimal shuck, equal leg lengths and appropriate stability with hyperextension and external rotation as well as with 90? flexion and internal rotation. Fluoroscopy was then also used to verify the position of the components and leg lengths using the contralateral side for comparison. The trial components were then dislocated the proximal femur was again exposed and the components were removed from the wound. The final components were verified and opened. The wound was copiously irrigated out with normal saline. The acetabulum was checked for any residual debris. The final components were placed and impacted. Traction and internal rotation were again used to reduce the hip. After adequate reduction the hip remained stable with appropriate leg lengths. The final components were once again checked with live fluoroscopy and were found to be satisfactory. The wound was then copiously irrigated with normal saline once more, and hemostasis was obtained. Closure was then done using #1 Vicryl runner to close the fascia. A 2-0 vicryl interuppted sutures were used to close the subcutaneous skin. A 3-0 Monocryl and Steri-Strips were used for final skin closure. A Silverlon dressing was placed. Patient was awakened by anesthesia and transferred to the [facility]. Patient was then transferred to the PACU for recovery. Postoperative plan: Patient will get 24 hours postop antibiotics. Patient will get in-house physical therapy and will be weight-bear as tolerated. Patient will follow up in office in 2 weeks for a wound check and x-rays. Aspirin 81 mg twice daily. - Complications No intraoperative complications - Admit VTE Documentation VTE Present on Admission: No VTE Mechan Device Prophylaxis: SCD's, Thigh High SUZETTE Hose VTE Pharm Prophylaxis ordered?: Yes
[2020-10-09] MEDS: Lactated Ringers 1,000 ML 125 ML IV ×2 (09:16→10:43)
[2020-10-09] MEDS: Famotidine 20 MG Tablet PO (13:08)
[2020-10-09] MEDS: Ensure Surgery 237 ML LIQUID PO ×2 (13:08→17:47)
[2020-10-09] MEDS: Cefazolin 1 GM/50 ML BAG IV ×2 (16:15→22:17)
--- NOTE | 2020-10-09 16:32 | PN_ITS ---
Subjective: Feeling well. Working with therapy. Vitals/I&O's: Vital Signs Temp Pulse Resp BP Pulse Ox 36.9 C 73 16 123/59 H 98 10/09/20 15:28 10/09/20 15:28 10/09/20 15:28 10/09/20 15:28 10/09/20 15:28 Oxygen Flow Rate (L/min) 6 Oxygen Delivery Method Room Air Weight: 72.9 kg Body Mass Index (BMI) 28.4 Intake and Output for Last 24 Hours 10/07/20 10/08/20 10/09/20 23:59 23:59 23:59 Intake Total 4584.5 / 4584.5 Balance 4584.5 / 4584.5 General: Alert, No apparent distress HEENT: Atraumatic, Normocephalic Oral: Moist Mucosa, No Gingival or Mucosal Lesions/ Ulcerations Neck: No Nodes, Thyroid Normal Size and Texture Lungs: Clear to auscultation, Normal air movement, No rhonchi, No wheeze, No rales Cardiovascular: Regular rate, Regular Rhythm, Normal S1, Normal S2, No murmurs Abdomen: Bowel Sounds Present, Soft, Non Tender, Non-Distended, No Hepato- splenomegaly Extremities: No edema, No Calf Tenderness Microbiology Past 72 Hours 10/08/20 11:10 Interface Orders SARS-CoV-2 Antigen (Rapid) - Final Laboratory Results 10/09/20 06:01: POC Glucose 80 Current Medications Acetaminophen (Acetaminophen 500 Mg Tablet) 1,000 mg PO Q8 [facility] Last Admin: 10/09/20 13:08 Dose: 1,000 mg Documented by: Aspirin (Aspirin 81 Mg Tab.Chew) 81 mg PO BIDCM [facility] Enteral Nutritional Formula (Ensure Surgery 237 Ml Liquid) 237 ml PO TIDCM [facility] Last Admin: 10/09/20 13:08 Dose: 237 ml Documented by: Famotidine (Famotidine 20 Mg Tablet) 20 mg PO DAILY [facility] Last Admin: 10/09/20 13:08 Dose: 20 mg Documented by: Lactated Ringer's () 1,000 mls @ 125 mls/hr IV .Q8H [facility] Last Admin: 10/09/20 10:43 Dose: 125 mls/hr Documented by: Cefazolin Sodium () 1 gm in 50 mls @ 150 mls/hr IV Q8H [facility] Stop: 10/09/20 23:49 Last Admin: 10/09/20 16:15 Dose: 150 mls/hr Documented by: Insulin Human Lispro (Insulin Lispro 100 Unit/Ml Insuln.Pen) 1 - 6 unit SC Q4H PRN PRN; Protocol PRN Reason: BG>/= 180, SEE PROTOCOL Ketorolac Tromethamine (Ketorolac 15 Mg/Ml Vial) 15 mg IV Q6H PRN PRN PRN Reason: Pain Score 1-5 Stop: 10/10/20 14:46 Meloxicam ([facility]oxicam 7.5 Mg Tablet) [facility] Morphine Sulfate (Morphine 2 Mg/Ml Syringe) 2 - 4 mg IV Q2H PRN PRN PRN Reason: Pain Score 4-10 Morphine Sulfate (Morphine 4 Mg/Ml Syringe) 2 - 4 mg IV Q2H PRN PRN PRN Reason: Pain Score 4-10 Ondansetron HCl (Ondansetron 4 Mg/2 Ml Vial) 4 mg IV Q8H PRN PRN PRN Reason: NAUSEA Oxycodone HCl (Oxycodone 5 Mg Tablet) 5 - 10 mg PO Q4H PRN PRN PRN Reason: Pain Score 4-10 Promethazine HCl (Promethazine 25 Mg/Ml Syringe) 12.5 mg IM Q6H PRN PRN; Protocol PRN Reason: NAUSEA/VOMITING Senna/Docusate Sodium (Senna/Docusate Sodium 1 Tablet) 2 tablet PO BID [facility] Sodium Chloride (0.9% Saline Lock 10 Ml Syringe) 10 - 40 ml IV UD PRN PRN Reason: SALINE FLUSH STROKE Vital Signs/Narrative: Vital Signs Temp Pulse Resp BP Pulse Ox 10/09/20 15:28 36.9 C 73 16 123/59 H 98 10/09/20 13:28 36.4 C L 86 16 116/65 98 Medical Necessity - Tobacco Use Smoking Status: Never smoker Tobacco Use: Non-smoker Assessment/Plan All Active Problems (Last Reviewed 06/10/20 @ 13:48 by Vi West) Family hx of colon cancer (Acute) Personal history of colonic polyps (Acute) 1. HTN stable. continue GILESIA inhibitor 2. s/p right hip replacement: mgmt per orthopaedics. 3. VTE prophylaxis: per orthopaedics. ASA 81 BID Thank for the consult. The hospital service will continue to follow longer in the course of this patient's hospitalization. Medically stable for discharge when deemed appropriate by orthopedics. Inpatient E&M: 92323 Subs Hosp L2
[2020-10-09] MEDS: Aspirin 81 MG TAB.CHEW PO (17:48)
[2020-10-09] MEDS: Senna/Docusate Sodium 1 Tablet 2 TABLET PO (22:16)
[2020-10-10 01:28] VITALS: BP 128/76; PULSE 68; RESP 16; TEMP 36.6; O2SAT 98
[2020-10-10 05:28] VITALS: BP 129/68; PULSE 81; RESP 16; TEMP 36.9; O2SAT 96
[2020-10-10] MEDS: Acetaminophen 500 MG Tablet 1000 MG PO ×2 (06:05→14:14)
[2020-10-10 07:03] LABS: Hematocrit 34.3 % (37-47); Hemoglobin 11.2 g/dL (12.0-15.0); Mean Corp Hgb Conc 32.7 g/dL (32-36); Mean Corpuscular Hgb 31.8 pg (27.0-32.0); Mean Corpuscular Volume 97.4 fL (81-99); Platelet Count 199 K/mm3 (150-450); RBC Distribution Width CV 12.1 % (11.6-14.6); RBC Distribution Width SD 42.9 fl (35.1-43.9); Red Blood Count 3.52 M/mm3 (4.2-5.4); White Blood Count 13.3 K/mm3 (4.4-11.0)
[2020-10-10] MEDS: oxyCODONE 5 MG Tablet PO (07:36)
[2020-10-10] MEDS: Aspirin 81 MG TAB.CHEW PO (07:36)
[2020-10-10] MEDS: Ensure Surgery 237 ML LIQUID PO (07:38)
[2020-10-10 07:53] LABS: Anion Gap 5 (5-15); BUN 18 mg/dL (7-18); Calcium,Total 8.5 mg/dL (8.5-10.1); Chloride 105 mmol/L (98-107); Creatinine, Serum 1.06 mg/dL (0.55-1.02); EST Glomerular Filtration Rate 53 mL/min (>60); Est Glom Filt Rate - Afr Amer 64 mL/min (>60); Glucose 136 mg/dL (74-106); Potassium 4.7 mmol/L (3.5-5.1); Sodium Level 137 mmol/L (136-145)
--- NOTE | 2020-10-10 09:02 | PN.ORTHO_ITS ---
Subjective: The patient was sitting in bedside chair upon examination. Patient denies any chest pain, shortness of breath, dizziness, lightheadedness, nausea or vomiting, or calf pain. Pain is controlled on medications. No adverse overnight events. Overall patient is doing well with no complaints. Ready for discharge home today. Objective: Vital signs stable and afebrile. Patient is able to plantarflex and dorsiflex actively. Sensation is intact to light touch to saphenous, sural, superficial and deep peroneal, and tibial distribution. Dressing is clean dry and intact. Negative Homans bilaterally, negative signs and symptoms of DVT. - Physical Exam Vitals/I&O's: Vital Signs Temp Pulse Resp BP Pulse Ox 98.5 F 81 16 129/68 H 96 10/10/20 05:28 10/10/20 05:28 10/10/20 05:28 10/10/20 05:28 10/10/20 05:28 Oxygen Flow Rate (L/min) 6 Oxygen Delivery Method Room Air Weight: 72.9 kg Body Mass Index (BMI) 28.4 Intake and Output for Last 24 Hours 10/08/20 10/09/20 10/10/20 23:59 23:59 23:59 Intake Total 6534.5 / 6934.5 900 / 900 Balance 6534.5 / 6934.5 900 / 900 General: Alert, Oriented x3, Cooperative, No apparent distress Microbiology Past 72 Hours 10/08/20 11:10 Interface Orders SARS-CoV-2 Antigen (Rapid) - Final Laboratory Results 10/10/20 06:50: WBC 13.3 H, RBC 3.52 L, Hgb 11.2 L, Hct 34.3 L, MCV 97.4, MCH 31.8, MCHC 32.7, RDW Std Deviation 42.9, RDW Coeff of Mirtha 12.1, Plt Count 199, MPV 10.0 10/10/20 06:50: Sodium 137, Potassium 4.7, Chloride 105, Carbon Dioxide 27.0, Anion Gap 5, BUN 18, Creatinine 1.06 H, Estim Creat Clear Calc 35.60, Est GFR (MDRD) Af Amer 64, Est GFR (MDRD) Non-Af 53 L, BUN/Creatinine Ratio 17.0, Glucose 136 H, Calcium 8.5 Current Medications Acetaminophen (Acetaminophen 500 Mg Tablet) 1,000 mg PO Q8 [facility] Last Admin: 10/10/20 06:05 Dose: 1,000 mg Documented by: Aspirin ([facility] 81 Mg [facility].Chew) [facility] Last Admin: 10/10/20 07:36 Dose: 81 mg Documented by: Enteral Nutritional Formula (Ensure Surgery 237 Ml Liquid) 237 ml PO TIDCM [facility] Last Admin: 10/10/20 07:38 Dose: 237 ml Documented by: Famotidine (Famotidine 20 Mg Tablet) 20 mg PO DAILY [facility] Last Admin: 10/09/20 13:08 Dose: 20 mg Documented by: Insulin Human Lispro (Insulin Lispro 100 Unit/Ml Insuln.Pen) 1 - 6 unit SC Q4H PRN PRN; Protocol PRN Reason: BG>/= 180, SEE PROTOCOL Ketorolac Tromethamine (Ketorolac 15 Mg/Ml Vial) 15 mg IV Q6H PRN PRN PRN Reason: Pain Score 1-5 Stop: 10/10/20 14:46 Meloxicam (Meloxicam 7.5 Mg Tablet) [facility] Morphine Sulfate (Morphine 2 Mg/Ml Syringe) 2 - 4 mg IV Q2H PRN PRN PRN Reason: Pain Score 4-10 Morphine Sulfate (Morphine 4 Mg/Ml Syringe) 2 - 4 mg IV Q2H PRN PRN PRN Reason: Pain Score 4-10 Ondansetron HCl (Ondansetron 4 Mg/2 Ml Vial) 4 mg IV Q8H PRN PRN PRN Reason: NAUSEA Oxycodone HCl (Oxycodone 5 Mg Tablet) 5 - 10 mg PO Q4H PRN PRN PRN Reason: Pain Score 4-10 Last Admin: 10/10/20 07:36 Dose: 5 mg Documented by: Promethazine HCl (Promethazine 25 Mg/Ml Syringe) 12.5 mg IM Q6H PRN PRN; Protocol PRN Reason: NAUSEA/VOMITING Senna/Docusate Sodium (Senna/Docusate Sodium 1 Tablet) 2 tablet PO BID [facility] Last Admin: 10/09/20 22:16 Dose: 2 tablet Documented by: Sodium Chloride (0.9% Saline Lock 10 Ml Syringe) 10 - 40 ml IV UD PRN PRN Reason: SALINE FLUSH Medical Necessity - Tobacco Use Smoking Status: Never smoker Tobacco Use: Non-smoker Assessment/Plan All Active Problems (Last Reviewed 06/10/20 @ 13:48 by Vi West) Family hx of colon cancer (Acute) Personal history of colonic polyps (Acute) 1. S/P right direct anterior total hip arthroplasty with left knee intra- articular injection POD #1 2. Continue Pain Medications: Tylenol and oxycodone. Meloxicam was stopped as patient states she has some underlying kidney disease. This was not divulged at our office with our preoperative history and physical exam. 3. DVT Prophylaxis: Take 81 mg aspirin twice daily for 4 weeks postoperatively for DVT prophylaxis 4. PT/OT: Weightbearing as tolerated 5. H & H: 11.2/34.3, asymptomatic. Postoperative anemia secondary to acute blood loss from surgery without any intra operative complications. 6. Reactive leukocytosis: Currently 13.3, afebrile. Patient did receive Decadron intraoperatively 7. Continue postoperative medical management per medicine 8. Encouraged Incentive Spirometry 9. Disposition: Plan will be for discharge home today as long as patient is medically stable and patient tolerates physical therapy. Patient has outpatient physical therapy established. She will follow-up per postop instructions. Prescriptions will be E scribed to [facility] in [facility]. The narcotic with oxycodone will be attached to chart and she will only fill if needed. I have reviewed the [place] Automated Rx Reporting System (OARRS) report for this patient for refill pattern and other prescriber involvement as part of the appropriate surveillance for the provision of acute and chronic controlled medications. The report was requested and reviewed on the date of this entry and was considered in the prescribing process.
--- NOTE | 2020-10-10 09:08 | DCINST_ITS ---
Discharge Diet: No Restrictions Discharge Activity: May Not Drive - while taking narcotic pain medications. May shower in (days): 1 - Dressing must be intact to skin. Turn dressing away from water Ice area for (Minutes): 20 - Every 1-2 hours while awake Weight Bearing Status: Weight bearing as tolerated Elevate: Operative Extremity Additional Activity Instructions:: Wear elastic stockings for 2 weeks. DO NOT use alcohol with narcotic pain medication. DO NOT make important decisions while taking narcotic medication. If you have problems with taking your medication (rash, itching, nausea, etc.) call the office at once. Call your doctor if your incision/area has: Increased Pain/ Swelling, Increased Redness, Foul Smelling Discharge Call your doctor if you observe: Fever of 101 or Higher Remove Dressing in (days):: 4 - Okay to remove dressing on October 14, 2020 Additional Instructions: Follow [facility] Post-op Instructions. Once postoperative dressing has been removed only use gentle soap and water over the incision. Do not use any ointments, Neosporin, salves, alcohol pads over the incision for 6 weeks postoperatively. Do not submerge underwater for 6 weeks postoperatively. Once the dressing has been removed 5 days postoperatively, you must place a gauze pad in the skin fold on the area over the incision to keep clean dry and intact until well-healed for 4 weeks postoperatively Allergies/Adverse Reactions: Allergies No Known Allergies Allergy (Verified 10/09/20 06:18) Medications to take at Discharge quinapril 5 mg tablet 10 mg PO QHS tab 06/10/20 Biotin 10,000 mcg PO QHS 09/25/20 Cholecalciferol (VIT D3) [Vitamin D3] 1,000 unit PO QHS 09/25/20 Acetaminophen [Tylenol] 1,000 mg PO Q8 #100 tablet 10/10/20 Aspirin [Aspirin, Baby] 81 mg PO BIDCM tab.chew 10/10/20 Famotidine [Pepcid] 20 mg PO DAILY #30 tablet 10/10/20 Oxycodone [Oxyir] 5 - 10 mg PO Q4H PRN PRN 4 Days #36 tablet 10/10/20 Senna/Docusate Sodium [Senokot-S] 2 tablet PO BID #14 tablet 10/10/20 The following prescriptions were given: Oxycodone [Oxyir] 5 - 10 mg PO Q4H PRN PRN 4 Days #36 tablet PRN Reason: Pain Score 4-10 Prescription Printed Famotidine [Pepcid] 20 mg PO DAILY #30 tablet Transmission Status: Pending to [id number] Senna/Docusate Sodium [Senokot-S] 2 tablet PO BID #14 tablet Transmission Status: Pending to [id number] Acetaminophen [Tylenol] 1,000 mg PO Q8 #100 tablet Transmission Status: Pending to [facility] Primary Care Physician: Raji Sams MD [Primary Care Provider] - Test Results: Test results from this visit will be discussed in further detail at your follow- up appointment, if applicable. Please Follow Up With: Physical therapy at [facility] When: 10/14/20 @ 10:30 am Please Follow Up With: Danny Buck PA-C When: 10/23/20 @ 10:00 am
[2020-10-10 09:18] VITALS: BP 120/75; PULSE 65; RESP 16; TEMP 36.3; O2SAT 98
[2020-10-10] MEDS: Famotidine 20 MG Tablet PO (10:22)
[2020-10-10] MEDS: Senna/Docusate Sodium 1 Tablet 2 TABLET PO (10:22)
--- NOTE | 2020-10-10 11:05 | CASEMGMT ---
RN CM Face to Face with patient for initial transition planning/care coordination assessment. RN CM introduced self and role at [facility]. Patient sitting in chair, alert and oriented. Patient willing to participate in assessment and is able to answer all questions appropriately. Care providers, pharmacy, and demographics verified. Patient wishes to discharge home and is setup with [facility] for outpatient therapy. Patient states she has no further needs or concerns at this time. CM to follow for discharge planning needs that may arise. PCP: Raji Sams Specialists: ella Lepe Pharmacy: [facility] Insurance: [employer]ep[employer] other Prescription Benefit: yes Living Will/HPOA: yes, Quang Ortez LNOK: Living Arrangements: Patient lives with in a 2 story home with bed and bath on the first floor. 3 steps and railing to enter the home. Transportation: DME/HHC: patient states she has raised toilet, grab bars, and walker at home. Patient is setup with [facility] for outpatient therapy starting Wednesday. Disposition Plan: Patient to discharge home with outpatient therapy, family support, and follow-up plans in place. Rut WYNN, RN, CM
--- NOTE | 2020-10-10 11:10 | CASEMGMT ---
FELI CM in to discuss VARGAS form with patient. RN CM explained VARGAS form, patient voiced understanding. Patient signed VARGAS form and placed in chart. Patient provided with copy of signed VARGAS form. Patient had no further questions or concerns at this time.
[2020-10-10 14:20] VITALS: BP 134/95; PULSE 74; RESP 16; TEMP 37; O2SAT 100
== END 2020-10-10 14:27 | disposition home or self-care (01) ==
LOC: SDC 11:07 → MS3 11:07
PROVIDERS: Anesthesiology; Admitting Provider Specialist; PCP Family Medicine; Referring Provider Specialist; Visit Provider Specialist
PROC: (CPT 27284; principal; 2020-10-09 07:05)
DX: M16.11 Unilateral primary osteoarthritis, right hip (principal); M17.0 Bilateral primary osteoarthritis of knee; I10 Essential (primary) hypertension; H91.90 Unspecified hearing loss, unspecified ear; G25.81 Restless legs syndrome; M21.061 Valgus deformity, not elsewhere classified, right knee; Z20.828 Contact with and (suspected) exposure to other viral communicable diseases; Z79.899 Other long term (current) drug therapy; Z87.19 Personal history of other diseases of the digestive system; Z80.0 Family history of malignant neoplasm of digestive organs
CPT/HCPCS: 01214; 20610; 27130; 36415; 73501; 73502; 76000; 80048; 82962; 83735; 85025; 85027; 87081; 87426; 93005; 96361; 96365; 96366; 97110; 97116; 97162; 97166; 97530; 99218; 99251; C1776; C9803; J7120; G0378; G0379; G0463; J2405

== ENCOUNTER → 2021-03-05 | Outpatient (CLI) | payer MEDICARE, OTHER, SELFPAY ==
[2021-03-05 11:29] VITALS: BMI 28.4
--- NOTE | 2021-03-05 13:40 | LES_PTH ---
PATIENT: DREW BROWNE LOC: [facility] U#:[id number] AGE/SX: 80/F ROOM: RE03/05/[address]: Dr. Ritesh Sargent MD : 1940 BED: DIS: 03/05/2021 SPEC #: [id number] RECD: 03/05/21 15:48 STATUS: LAURENT MATOS #: [id number] HATTIE: 03/05/21 13:[address]: Ritesh Sargent DEPT: SURGICAL PATHOLOGY RECD BY: Christa Coffey ENTERED: 03/06/21 12:25 SP TYPE: Lesion OTHR DR: Dr. Raji Sams MD Tissues: Skin of leg, NOS Procedures: Surgery Specimen Level IV HEADER OPERATION: Excision left distal thigh lesion PRE-OP DIAGNOSIS: Neoplasm leg TISSUE SUBMITTED: Left distal thigh lesion MICROSCOPIC DIAGNOSIS Left thigh lesion, excisional biopsy: Invasive well-differentiated squamous cell carcinoma, completely excised. See comment. SJ:jeovany 03/07/2021 COMMENT The tumor measures 0.5 cm in greatest dimension. Marked chronic inflammation is noted in the area of tumor. Lymph-vascular or perineural invasion is not seen. Case has been reviewed in consultation with Dr. iDckinson who concurs with the above diagnosis. IDC:AM MICROSCOPIC DESCRIPTION Slides are reviewed. GROSS DESCRIPTION Received in fixative is one container labeled with the patient's name and designated left distal thigh. The specimen consists of a rose-white skin ellipse measuring 1.2 x 0.7 cm and up to 0.3 cm in thickness. The specimen is inked, serially sectioned and submitted entirely in one cassette. / NAVEED:jeovany 03/06/21 TC:0 CPT: 48808
== END | disposition home or self-care (01) ==
LOC: LABSPEC 16:20
PROVIDERS: PCP Family Medicine; Referring Provider Surgery; Visit Provider Surgery
DX: C44.729 Squamous cell carcinoma of skin of left lower limb, including hip (principal)
CPT/HCPCS: 88305

== ENCOUNTER → 2021-05-05 14:21 | Outpatient (CLI) | payer MEDICARE, OTHER, SELFPAY ==
--- NOTE | 2021-05-05 14:25 | RAD_ITS ---
EXAM: XR ABDOMEN, 2 VIEWS AND XR CHEST, 1 VIEW CLINICAL INDICATION: unspecified abdominal pain TECHNIQUE: Frontal view of the chest, frontal view of the abdomen/pelvis and upright or decubitus view of the abdomen. This report was created using [email or web address] report generation technology. COMPARISON: None. FINDINGS: CHEST: LUNGS AND PLEURAL SPACES: Unremarkable. No consolidation or edema. No pneumothorax. No effusion. HEART: Unremarkable. Cardiac silhouette not enlarged. MEDIASTINUM: Central airways and mediastinal contour are unremarkable. ABDOMEN: INTRAPERITONEAL SPACE: No free air. GASTROINTESTINAL TRACT: Stool throughout the colon. Non-obstructive. No bowel or stomach distention. ORGANS: There are calcified phleboliths in the pelvis. This makes differentiation with distal ureteral stones difficult. No organomegaly. TUBES, LINES AND DEVICES: None. BONES/JOINTS: Total bilateral hip arthroplasty. Degenerative findings in the lumbar spine. SOFT TISSUES: No acute findings. RAD/Acute Abdomen Inc Chest IMPRESSION: Stool throughout the colon. Electronically Signed: Segundo Ann MD at 20:57 EDT , Service support ,
== END ==
PROVIDERS: PCP Family Medicine; Referring Provider Family Medicine; Visit Provider Family Medicine
DX: R10.9 Unspecified abdominal pain (principal)
CPT/HCPCS: 74022

== ENCOUNTER → 2021-05-07 11:22 | Outpatient (CLI) | payer MEDICARE, OTHER, SELFPAY ==
[2021-03-05 11:29] VITALS: BMI 28.4
--- NOTE | 2021-05-07 12:19 | CT_ITS ---
STUDY: CT LEFT LOWER EXTREMITY WITHOUT CONTRAST REASON FOR EXAM: Valgus deformity of the left knee, surgical planning. TECHNIQUE: Transaxial CT imaging of the lower extremity was performed. Coronal and sagittal images were reformatted. Individualized dose optimization techniques were used for this CT. COMPARISON: Radiographs 03/13/2020. FINDINGS: Knee: There are marginal osteophytes of the medial femoral condyle with preservation of joint space of the medial femorotibial compartment. There are marginal osteophytes with joint space narrowing of the lateral femorotibial compartment (coronal reconstruction 34) and mild pressure erosion of the lateral tibial plateau (sagittal reconstruction 44). There is a prominent anterior osteophyte of the tibial plateau at the midline (sagittal reconstruction 40). There are marginal osteophytes and mild joint space narrowing of the lateral aspect patellofemoral articulation (axial image 293). Normal proximal tibiofibular articulation. There is a joint effusion. The quadriceps tendon is grossly normal. The patellar tendon is grossly normal. Normal Hoffa''s fat pad. The soft tissues are unremarkable. Hip: There is a left hip arthroplasty without evidence of complication. Ankle: Normal tibiotalar, posterior subtalar, talonavicular and calcaneocuboid articulations. There is a small posterior calcaneal enthesophyte. CT/Extremity Lower without Contra IMPRESSION: Left knee arthrosis. Electronically Signed: Javier Farr MD at 14:59 EDT Tel , Service support ,
== END ==
PROVIDERS: PCP Family Medicine; Referring Provider Specialist; Visit Provider Specialist
DX: M21.062 Valgus deformity, not elsewhere classified, left knee (principal)
CPT/HCPCS: 73700

== ENCOUNTER 2021-05-21 06:56 | Observation (INO) | payer MEDICARE, OTHER, SELFPAY ==
[2021-03-05 11:29] VITALS: BMI 28.4
--- NOTE | 2021-04-30 12:38 | HP.PCM_ITS ---
History and Physical History and Physical [facility] Patient Name: Emily Ortez : 1940 From: ART MONTERO PA-C DATE OF SURGERY: 05/21/2021 SCHEDULED PROCEDURE: left total knee arthroplasty HISTORY OF PRESENT ILLNESS: Preoperative history and physical exam was performed on April 30, 2021. This is a 80-year-old female who has had ongoing pain in her left knee for approximately 3-4 years. There is been no recent trauma or injury. Her pain is been intermittent, sharp, stabbing. She gets pain into the lower leg. Patient has increased pain going up and down stairs, sitting. She has fallen and tripped/stumbled due to the knee pain. Patient states her pain can reach a size a 10/10 with stairs. She has been through conservative measures consisting of physical therapy, corticosteroid injections with temporary relief. She denies any previous surgery on the left knee. There is been no recent fevers, chills, recent infections. She denies any chest pain or shortness of breath. She has medical history pertinent for hypertension. We are obtaining surgical clearance from the primary care physician Dr. Sams. 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 She has also had previous squamous cell lesion removed approximately 1 month ago on the left upper leg. She is doing well from those procedures. After failing conservative measures and discussing treatment options with Dr. Pablo Lepe, the patient does wish to proceed with a left total knee arthroplasty. REVIEW OF SYSTEMS: ROS: Const: Denies change in appetite, fever,or weight change. CV: Denies chest pain, heart murmur and irregular heartbeat. Resp: Denies cough, pneumonia, SOB, tuberculosis and wheezing. GI: Reports constipation, but denies diarrhea, difficulty swallowing, heartburn, nausea, bloody stools and vomiting. : Urinary: denies incontinence. Musculo: Reports limp, trouble walking and weakness, but denies leg swelling. Skin: Denies Raynaud's, history of shingles and tattoo. Neuro: Denies ambulatory dysfunction, dizziness, numbness/tingling and tremor. Psych: Reports insomnia, but denies anxiety and stress. Steven/Lymph: Denies anemia, bleeding/bruising tendency and past transfusion. Reviewed and updated. PAST MEDICAL HISTORY: Advance Care Plan: Other Directive, LIVING WILL Effective Date: 08/29/2015 Comments: DAUGHTER Ravin CANTU Other Directive, POA Effective Date: 08/29/2015 Comments: DAUGHTER Ravin CANTU PMH: Medical Problems: Arthritis, Hard of Hearing, High Blood Pressure Accidents: Fracture - LT FOOT - 12 YEARS AGO Surgical Hx: Gallbladder - (2003) @[facility] DR. CLANCY Tonsillectomy - (1952) LT Anterior THR - (10/08/2015) SAW@[facility] Hip Replacement RT - (10/09/2020) ANTERIOR SAW AT [facility] Anesthesia Complications: Vomiting Assistive Devices: Glasses Reviewed, no changes. SOCIAL HISTORY: SH: Marital: .Occupation: Retired.Work Status: Retired.Hand Dominance: Right- handed. Personal Habits: Cigarette Use: Never Smoked Cigarettes.Alcohol: Denies use.Drug Use: Denies Use.Enjoy Exercising: Exercises 1-3 x/month. Reviewed, no changes. VITALS: Ht: 62.5 Wt: 164lb Wt k.390 BMI: 29.5 BP: 142/72 Pulse: 68 Resp: 14 T: 97.5 T: 36.4C Pain Level: 4 ALLERGIES: Codeine MEDICATIONS: Quinapril HCL 5 mg one PO daily PRE-OP EXAM: General appearance:NORMAL Other: Eyes: Conjunctivae and lids: NORMAL Pupils: ERR Ears, Nose, Mouth, and Throat: NORMAL Other: Inspection of lips, teeth and gums: NORMAL Other: Neck: Examination of neck: no masses noted. Respiratory: Assessment of respiratory effort: NORMAL Other: Auscultation of lungs: clear to auscultation no wheezes, rhonchi or rales. Cardiovascular: Auscultation of heart: regular rate and rhythm, no murmurs, gallops or rubs. PHYSICAL EXAMINATION: Patient does walk with a slight limping gait. Left knee is cool to touch without erythema or signs of infection. She does have valgus alignment which is correctable on exam. There is tenderness to palpation over the lateral joint line. Range of motion: 0 extension to 118 flexion. Stable to varus/valgus stress test, stable anterior/posterior drawer. Sensation intact to light touch. IMAGING STUDIES: Previous x-rays of the left knee reveal valgus alignment with lateral joint space narrowing, subchondral sclerosis, osteophyte formation consistent with severe stage IV erosive osteoarthritis IMPRESSION: 1. Severe left knee osteoarthritis 2. Hypertension PLAN: Dr. Pablo Lepe did discuss and review with the patient all treatment options including surgical versus nonsurgical options. Patient does wish to proceed with the above-stated procedure. Potential risks, benefits, and complications of the procedure were discussed in detail including but not limited to , infection, nerve and blood vessel damage, persistent pain, numbness, tingling, paresthesias, blood clot, pulmonary embolism, and requirement for possible further surgery. The patient expressed full understanding and has no further questions for the doctor. Patient does agree to proceed with the above-stated procedure and has signed the surgery consent form. We discussed the current risks associated with COVID 19. This does include the risk of exposure while in the hospital. Patient was reassured local hospitals have low infection rates and are taking all necessary precautions to avoid exposure to patients. In addition, we discussed strategies that can be used to help limit exposure including those that limit the patient's time in the hospital. Also using strategies to limit the patient's need for continued inpatient services after being discharged from the hospital. Patient was notified that we will need to comply with any screening or testing the hospital wishes to perform or that surgery may be delayed for any positive results. This dictation was created using voice recognition software. Phonetic and/or grammatical errors may exist. ___ I have re-examined the patient. There are no clinical changes since date of exam. ___ See progress notes for changes. ___ Dictated on admission Date: Time: Signature:
[2021-05-07 12:04] LABS: Absolute Lymphocyte Count 1.86 X10^3/uL (0.83-4.51); Absolute Neutrophil Count 3.2 X10^3/uL (2.0-7.7); Basophil# 0.02 X10^3/uL; Basophil% 0.4 % (0-1); Eosinophil# 0.08 X10^3/uL; Eosinophils% 1.4 % (0-5); Hematocrit 41.7 % (37-47); Hemoglobin 13.5 g/dL (12.0-15.0); Lymphocyte # 1.86 X10^3/ul (0.83-4.51); Lymphocyte % 33.4 % (19-41); Mean Corp Hgb Conc 32.4 g/dL (32-36); Mean Corpuscular Hgb 31.2 pg (27.0-32.0); Mean Corpuscular Volume 96.3 fL (81-99); Monocyte# 0.45 X10^3/uL; Monocyte% 8.1 % (0-10); NRBC Flagged by Analyzer 0 % (0-5); Neutrophil # 3.15 X10^3/uL (2.7-7.7); Neutrophil % 56.5 % (47-70); Platelet Count 212 K/mm3 (150-450); RBC Distribution Width CV 12.6 % (11.6-14.6); RBC Distribution Width SD 44.8 fl (35.1-43.9); Red Blood Count 4.33 M/mm3 (4.2-5.4); White Blood Count 5.6 K/mm3 (4.4-11.0)
[2021-05-07 12:29] LABS: Microalbumin:Creatinine Ratio 12.1 mg/g CRE (<30 mg/g CRE)
[2021-05-07 12:32] LABS: Magnesium 2.3 mg/dL (1.6-2.6)
[2021-05-07 12:32] LABS: PTHIN 52.9 pg/mL (18.4-80.1)
[2021-05-07 12:38] LABS: ALB/GLOB Ratio 0.8 RATIO (0.9-2.4); AST(SGOT) 25 U/L (15-37); Alanine Aminotransfer ALT/SGPT 19 U/L (13-56); Albumin, Serum 3.4 g/dL (3.2-5.0); Alkaline Phosphatase 83 U/L (45-117); Anion Gap 2 (5-15); Anion Gap 3 (5-15); BUN 25 mg/dL (7-18); BUN/Creat Ratio 23.1 RATIO (10-20); Calcium,Total 9.1 mg/dL (8.5-10.1); Calcium,Total 9.2 mg/dL (8.5-10.1); Chloride 106 mmol/L (98-107); Chloride 107 mmol/L (98-107); Creatinine, Serum 1.08 mg/dL (0.55-1.02); EST Glomerular Filtration Rate 52 mL/min (>60); Est Glom Filt Rate - Afr Amer 63 mL/min (>60); Glucose 100 mg/dL (74-106); Glucose 99 mg/dL (74-106); Potassium 4.2 mmol/L (3.5-5.1); Protein, Total 7.4 g/dL (6.4-8.2); Sodium Level 139 mmol/L (136-145)
[2021-05-07 12:39] LABS: Vitamin D,25 Hydroxy 59.9 ng/mL
[2021-05-21] VITALS (12 sets, daily range): BP systolic 115–154; BP diastolic 50–83; PULSE 70–102; RESP 16–18; TEMP 36.1–37.2; O2SAT 95–100; BMI 29.5
[2021-05-21 06:35] LABS: Bedside Glucose 149 mg/dL (70-110)
--- NOTE | 2021-05-21 06:58 | PCM.OPRPT ---
Report of Operation Date of Procedure: 05/21/21 Pre-Operative Diagnosis: Left knee primary osteoarthritis Post-Operative Diagnosis: Left knee primary osteoarthritis Surgery/Procedure Performed:: Left knee minimally invasive robotic assisted total knee replacement Description of Surgical Findings:: Stable knee with good patella tracking Surgeon: Pablo Lepe taxonomy teacher: Danny Buck Type of Anesthesia: Spinal Anesthesiologist: MANAN Special Medications: 2 g Ancef, 1 g TXA at incision, 1 g TXA closure, 10 mg Decadron, joint cocktail (5 mg Duramorph, 30 mL of 0.5% Ropivicaine, 1000 units of epinephrine, 30 mg of Toradol) Specimen's removed: Bony cuts Estimated Blood Loss (mL): 50 Fluids Replaced: 1500 mL crystalloid Description of Procedure: Implants used: 1. Hutto size 2 triathlon cruciate retaining distal femoral press-fit component 2. Sangeetha size 3 press-fit tritanium tibial baseplate 3. Sangeetha X3 10 mm CS polyethylene 4. Sangeetha X3 29 mm asymmetric patella Brief history operative indications: 80-year-old F with history of left knee osteoarthritis with radiographic findings with loss of joint space, osteophyte formation and subchondral sclerosis. Failed conservative measures as mentioned in the H&P. Discussion of total knee arthroplasty as well as risk and benefits were discussed the patient including but not limited to blood loss, DVTs, PEs, neurovascular damage, general risk of anesthesia including loss of life, and stiffness or instability were discussed with patient. Patient demonstrated understanding and was able to sign informed consent. Procedure: On the date of procedure patient's left lower extremity was marked in the preoperative area. The patient was then taken back to the operating room where the patient was placed on the table in the supine position. All bony prominences were identified a well-padded. Anesthesia assumed control of the C-spine and airway and remained controlled throughout the remainder of the procedure. A tourniquet was placed on the left upper thigh and the leg was prepped in a sterile fashion. The surgeon then scrubbed at this time .Upon reentering the room left lower extremity was draped in a standard orthopedic fashion. A timeout was then called and everyone agreed upon the side, the site, the procedure to be performed, patient's identity and antibiotics given. Esmarch bandage was used to exsanguinate the extremity and the tourniquet was placed up to 250 mmHg with the knee in flexion. A midline skin incision was made and sharp dissection was taken down through skin subcutaneous tissue and fat. The standard medial parapatellar incision was made and the patella was subluxed laterally. An Appropriate deep MCL release was done and the fat pad was resected. Our attention was then directed to the patella. The patella was everted and a flat resection was made. The knee was then flexed up in 2 femoral pins were placed inside the incision and 2 tibial pins were placed outside the incision in the medial tibia bicortically. Once this was completed the 2 checkpoints in the femur and tibia were placed. Knee was then flexed up and the bony landmarks were registered. Once this was completed knee was taken through range of motion and manually stressed allowing us to a plan for an appropriate tibial cut. The robotic arm was brought into the field sterilely and checkpoint and saw were registered. Based on the patient's deformity the tibial cut was made in neutral. At this time the tensioner was then placed in the joint and ligament tension was checked at 90 degrees and full extension. Based on the patient's ligamentous tension appropriate adjustments were made to the operative plan and ligament releases were done. Once we were happy with our operative plan with balanced flexion and extension gaps our attention was directed to the femur. The robot was brought into the field sterilely and registered. Posterior condylar cuts, anterior chamfer cuts and anterior cuts were appropriately made for a size 2 femur. When these were completed the saws were switched out in the distal femoral and posterior chamfer cuts were made. Protecting the soft tissue throughout this time. A size 3 tibial base plate was selected. the knee was flexed to 90 degrees and the soft tissues and posterior osteophytes were removed from the joint. 40 cc of the periarticular injection was injected into the posterior medial corner of the joint. The appropriate trials were then placed on the femur and tibia. A trial polyethylene was trialed to ensure proper balancing and stability of the knee. The appropriate tibial internal rotation was then marked with a bovie. Our attention was then directed to the patella. The lug holes were drilled and the patella trial was placed. Patellar tracking was checked and deemed appropriate. Once we were happy lug holes were drilled for the femur and trial components were removed. the tibia was subluxed and pinned into place and the keel was punched and drilled appropriately. Final components were verified and opened, and cement was mixed in a vacuum. [employer] Simplex cement was used. The wound was copiously irrigated with normal saline. When the cement was ready the components were impacted into place starting with the tibia, femur the femur did not have an adequate fit for press-fit so we did cement the femur and finally cementing the patella. The trial poly component was placed and the knee was placed in full extension. All excess cement was removed in the process. Once the cement had cured the tracking, alignment and balance were verified and a size 10 mm CS polyethylene component was placed. Once the final components were placed a 3-minute dilute Betadine lavage was performed followed by an Irrisept lavage was performed and the wound was copiously irrigated with normal saline solution and the periarticular injection was given. The wound was closed in a layer javed fashion using #1 vicryl interrupted sutures for the arthrotomy, 2-0 interrupted Vicryl suture for the subcuticular layer and arnel for final skin closure. A sterile compressive dressing was then placed. The patient was then awakened from anesthesia, transferred to the [facility] and transferred to the PACU for recovery. Post op plan DVT ppx: ASA 81mg BID, thigh high compression stockings Follow up: in office in 2 weeks for wound check PT: to start POD #0 at hospital, outpatient PT should be arranged. My physician offset assistant press operator was a vital part of this case. He was important in appropriate retraction during the case, and protection of soft tissues during bony cuts. His intimate knowledge of the case and my steps aided in safe and expedient completion of the procedure as well as appropriate position of the leg during the case. He was also vital in assisting with closure under my direct supervision. Due to the complexity of this case robotic arm was used to assist in the surgery to improve accuracy and clinical outcomes. Complications No intraoperative complications Admit VTE Documentation VTE Present on Admission: No VTE Mechan Device Prophylaxis: SCD's and Thigh High SUZETTE Hose VTE Pharm Prophylaxis ordered?: Yes
[2021-05-21] MEDS: Celecoxib 200 MG Capsule 400 MG PO (07:12)
[2021-05-21] MEDS: Gabapentin 600 MG Tablet PO (07:12)
[2021-05-21] MEDS: Acetaminophen 500 MG Tablet 1000 MG PO ×3 (07:13→21:15)
[2021-05-21] MEDS: Lactated Ringers 1,000 ML 999 ML IV ×2 (07:13→09:30)
[2021-05-21] MEDS: Lactated Ringers 1,000 ML 75 ML IV (07:16)
[2021-05-21] MEDS: Cefazolin 2 GM in 0.9% Normal Saline 100 ML IV (08:16)
[2021-05-21] MEDS: dexAMETHasone 10 MG/ML Vial IV (08:20)
[2021-05-21] MEDS: Lactated Ringers 1,000 ML 125 ML IV (10:29)
--- NOTE | 2021-05-21 10:50 | RAD_ITS ---
STUDY: X-RAY - LEFT KNEE REASON FOR EXAM: Postoperative evaluation of left total knee arthroplasty. TECHNIQUE: 2 view(s) of the knee. COMPARISON: Radiographs 03/13/2020. FINDINGS: There is a left total knee arthroplasty without evidence of complication. There is postoperative gas in the soft tissues and overlying skin arnel. RAD/Knee 1 or 2 Views IMPRESSION: Uncomplicated left total knee arthroplasty. Electronically Signed: Javier Farr MD at 12:10 EDT Tel , Service support ,
--- NOTE | 2021-05-21 13:21 | SUR.PHASEII ---
Patient had been waiting for room on [facility]. This nurse sent report and called for clearance to send upstairs. All clear. Patient belongings on bed. sent up the front way.
--- NOTE | 2021-05-21 13:32 | PN.HOSP_ITS ---
Subjective Subjective Mrs. Ortez is [id number] white female who presented to [facility] on 05/21/2021 for an elective left total knee arthroplasty. Per documentation the patient had ongoing left knee pain for approximately 3 to 4 years. There had been no trauma or injury. She reported her pain is intermittent, sharp, and stabbing. She had increased issues with IADLs and ADLs and had fallen and tripped secondary to the pain in her joint. She reported that her pain can reach pain rating of 10 out of 10 at worse. She had undergone conservative measures with physical therapy and corticosteroid injections. She underwent a right anterior KAMERON in September 2020. We have been consulted for postoperative medical management. She is currently feeling well and sitting up in bed awake and alert conversing without any issues. She is denying any pain but had a femoral nerve block. Objective Data Objective Data Vital Signs: Vital Signs Temp Pulse Resp BP Pulse Ox 97.4 F L 87 16 125/67 H 100 05/21/21 12:15 05/21/21 12:15 05/21/21 12:15 05/21/21 12:15 05/21/21 12:15 Oxygen Flow Rate (L/min) 6 Oxygen Delivery Method Nasal Cannula Weight: 74.389 kg Body Mass Index (BMI) 29.5 Intake & Output: Intake and Output for Last 24 Hours 05/19/21 05/20/21 05/21/21 23:59 23:59 23:59 Intake Total 2330 / 2330 Balance 2330 / 2330 Lab / Micro Data Result Diagrams: 05/07/21 11:43 05/07/21 11:43 Labs: Laboratory Results - last 24 hr 05/21/21 06:32: POC Glucose 149 H Micro: Microbiology 05/07/21 11:43 Swab (Method) Nasal Screen MRSA/MSSA - Final Radiography Diagnostic Testing: Radiology Impression Knee X-Ray 05/21/21 10:50 IMPRESSION: Uncomplicated left total knee arthroplasty. Electronically Signed: Javier Farr MD at 12:10 EDT Tel , Service support , Physical Exam Const alert, oriented x3, no apparent distress and average body habitus Constitutional Narrative: Obese, elderly white female sitting up in bed, appears comfortable, nontoxic, very pleasant, nursing at bedside Exam Limitations: no limitations HEENT head/scalp atraumatic, moist oral mucous membranes and oropharynx normal HEENT Narrative: Mallampati 2, no thrush Head and Scalp: normocephalic Resp normal respiratory effort, no retractions, no use of accessory muscles and clear to auscultation bilaterally Auscultation: Negative for crackles, rales, rhonchi or wheezes Cardio regular rate, regular rhythm, S1 normal heart sound, S2 normal heart sound, no murmurs, no rub, no gallops, no clicks and no JVD GI normal to inspection, nondistended, normoactive bowel sounds, soft to palpation, non-tender and non-distended Extremity no clubbing, cyanosis or edema Peripheral Pulses: Yes pulses 2+ throughout Neuro oriented x3 and CN's II-XII intact bilaterally Sensorium / Orientation: awake and alert Speech: speech normal Assessment & Plan Assessment/Plan (1) Osteoarthritis: (2) Left knee pain: (3) S/P total knee arthroplasty: PLAN: Left knee pain secondary to severe osteoarthritis status post left TKA -Postop day 0 -Management per orthopedic surgery-Dr. Lepe -Pain management per primary service -Bowel regimen -PT/OT consultations Hypertension -Continue quinapril 10 mg at at bedtime GERD -Continue famotidine 40 mg daily Vitamin D deficiency -Continue vitamin D supplementation Recent right KAMERON -Done in September 2020 -Doing well without issues DVT prophylaxis -Per orthopedic surgery aspirin 81 mg twice daily Charges/Coding Visit Charges OBSV E&M: 97630 Initial observation care L2
[2021-05-21] MEDS: Cefazolin 1 GM/50 ML BAG IV ×2 (15:47→23:41)
[2021-05-21] MEDS: Aspirin 81 MG TAB.CHEW PO (17:50)
[2021-05-21] MEDS: Ensure Surgery 237 ML LIQUID PO (17:50)
[2021-05-21] MEDS: Senna/Docusate Sodium 1 Tablet 2 TABLET PO (21:14)
[2021-05-21] MEDS: Lisinopril 10 MG Tablet PO (21:16)
[2021-05-21] MEDS: Cholecalciferol (VIT D3) 25 MCG TABLET (1,000 UNITS) PO (21:16)
[2021-05-22 03:00] VITALS: BP 127/75; PULSE 64; RESP 16; TEMP 36.4; O2SAT 96
[2021-05-22] MEDS: Acetaminophen 500 MG Tablet 1000 MG PO ×2 (05:33→14:13)
[2021-05-22 06:06] LABS: Hematocrit 32.7 % (37-47); Hemoglobin 10.8 g/dL (12.0-15.0); Mean Corpuscular Hgb 31.6 pg (27.0-32.0); Mean Corpuscular Volume 95.6 fL (81-99); Mean Platelet Vol. 10.2 fl (6.2-12.0); Platelet Count 182 K/mm3 (150-450); RBC Distribution Width CV 12.2 % (11.6-14.6); RBC Distribution Width SD 42.3 fl (35.1-43.9); Red Blood Count 3.42 M/mm3 (4.2-5.4); White Blood Count 9.5 K/mm3 (4.4-11.0)
[2021-05-22 06:32] LABS: Anion Gap 5 (5-15); BUN 18 mg/dL (7-18); BUN/Creat Ratio 16.7 RATIO (10-20); Calcium,Total 8.3 mg/dL (8.5-10.1); Chloride 107 mmol/L (98-107); Creatinine, Serum 1.08 mg/dL (0.55-1.02); EST Glomerular Filtration Rate 52 mL/min (>60); Est Glom Filt Rate - Afr Amer 63 mL/min (>60); Estimated Creatinine Clearance 33.41 ml/min; Glucose 99 mg/dL (74-106); Potassium 4.4 mmol/L (3.5-5.1); Sodium Level 140 mmol/L (136-145)
[2021-05-22 08:08] VITALS: O2SAT 97
--- NOTE | 2021-05-22 08:38 | PCM.PN.ORT ---
Subjective Subjective The patient was participating in physical therapy upon examination. Patient denies any chest pain, shortness of breath, dizziness, lightheadedness, nausea or vomiting, or calf pain. Pain is controlled on medications. No adverse overnight events. Overall patient is doing very well. She has no pain currently. Objective Data Objective Data Vital Signs: Vital Signs Temp Pulse Resp BP Pulse Ox 97.6 F L 64 16 127/75 H 96 05/22/21 03:00 05/22/21 03:00 05/22/21 03:00 05/22/21 03:00 05/22/21 03:00 Oxygen Flow Rate (L/min) 6 Oxygen Delivery Method Room Air Weight: 74.389 kg Body Mass Index (BMI) 29.5 Intake & Output: Intake and Output for Last 24 Hours 05/20/21 05/21/21 05/22/21 23:59 23:59 23:59 Intake Total 4834.50 / 5234.50 450 / 450 Output Total 1000 / 1000 Balance 3834.50 / 4234.50 450 / 450 Lab / Micro Data Result Diagrams: 05/22/21 05:46 05/22/21 05:46 Labs: Laboratory Results - last 24 hr 05/22/21 05:46: WBC 9.5, RBC 3.42 L, Hgb 10.8 L, Hct 32.7 L, MCV 95.6, MCH 31.6, MCHC 33.0, RDW Std Deviation 42.3, RDW Coeff of Mirtha 12.2, Plt Count 182, MPV 10.2 05/22/21 05:46: Sodium 140, Potassium 4.4, Chloride 107, Carbon Dioxide 28.0, Anion Gap 5, BUN 18, Creatinine 1.08 H, Estim Creat Clear Calc 33.41, Est GFR (MDRD) Af Amer 63, Est GFR (MDRD) Non-Af 52 L, BUN/Creatinine Ratio 16.7, Glucose 99, Calcium 8.3 L Micro: Microbiology 05/07/21 11:43 Swab (Method) Nasal Screen MRSA/MSSA - Final Radiography Diagnostic Testing: Radiology Impression Knee X-Ray 05/21/21 10:50 IMPRESSION: Uncomplicated left total knee arthroplasty. Electronically Signed: Javier Farr MD at 12:10 EDT Tel , Service support , Physical Exam Narrative Vital signs stable and afebrile. Patient is able to plantarflex and dorsiflex actively. Sensation is intact to light touch to saphenous, sural, superficial and deep peroneal, and tibial distribution. Main dressing is clean dry and intact. Mild discharge over the distal pin site Negative Homans bilaterally, negative signs and symptoms of DVT. Const alert, oriented x3 and no apparent distress Assessment & Plan Assessment/Plan (1) Status post total left knee replacement: PLAN: 1. S/P left total knee arthroplasty POD #1 2. Continue Pain Medications: Tylenol, meloxicam, oxycodone as needed 3. DVT Prophylaxis: Take 81 mg aspirin twice daily for 4 weeks postoperatively for DVT prophylaxis 4. PT/OT: Weightbearing as tolerated with walker 5. H & H: 10.8/32.7, asymptomatic. Postoperative anemia secondary to acute blood loss from surgery without any intra operative complications. 5. Continue postoperative medical management per medicine 6. Encouraged Incentive Spirometry 7. Disposition: Plan will be for possible discharge home today as long as pain is well controlled, tolerates physical therapy, and medically stable. Prescriptions will be E scribed to [facility] in [facility]. Patient reports having majority of medications at home from previous surgery. She has outpatient physical therapy established. She will follow-up per postop instructions. I have reviewed the [place] Automated Rx Reporting System (OARRS) report for this patient for refill pattern and other prescriber involvement as part of the appropriate surveillance for the provision of acute and chronic controlled medications. The report was requested and reviewed on the date of this entry and was considered in the prescribing process.
--- NOTE | 2021-05-22 08:42 | DCINST_ITS ---
Discharge Instructions Diet Discharge Diet: No restrictions Activity Discharge Activity: May Not Drive (while taking narcotic pain medications.) May shower in (days): 1 (Please turn dressing away from water. Okay to get wet as long as dressing is intact to skin.) Ice area for (Minutes): 20 (Every 1-2 hours while awake. Please place barrier between the skin and ice pack.) Weight Bearing Status: Weight bearing as tolerated Keep extremity elevated above heart level: Operative Extremity Dressing / Incision Call your doctor if your incision/area has: Continuous Slow Oozing, Sudden Increased Bleeding, Increased Pain/ Swelling, Increased Redness and Foul Smelling Discharge Call your doctor if you observe: Fever of 101 or Higher, Coldness, Increased Pain, Numbness or Tingling, Change in Color, Shortness of breath, Chest pain, Calf discomfort and Uncontrolled pain Remove Dressing in: 4 days (Okay to remove dressing on May 26, 2021) Additional Dressing/Incision Instructions:: Follow [facility] Post-op Instructions. Once postoperative dressing has been removed only use gentle soap and water over the incision. Do not use any ointments, Neosporin, salves, alcohol pads over the incision for 6 weeks postoperatively. Do not submerge underwater for 6 weeks postoperatively. Continue with SUZETTE hose/elastic stockings for 2 weeks postoperatively. May remove at nighttime but needs to be placed back on the leg during the day. Do NOT use alcohol with narcotic pain medication. Do NOT make important decisions while taking narcotic medication. If you have problems with taking your medication (rash, itching, nausea, etc.) call the o ffice at once. Follow Up Care Test Results: Test results from this visit will be discussed in further detail at your follow-up appointment, if applicable. Discharge Plan Admission Admit Date/Time: 05/21/21 06:56 Attending Provider: Ronaldo Banks Primary Care Provider: Raji Sams Consulting Providers: Ivis Victor Discharge Orders/Prescriptions Prescriptions: New acetaminophen 500 mg Tablet 1,000 mg PO Q8 14 Days Qty: 84 RF: 0 aspirin 81 mg Tablet,Chewable 81 mg PO BIDCM Qty: 0 RF: 0 sennosides-docusate sodium [Stool Softener-Stimulant Laxat] 8.6-50 mg Tablet 2 tab PO BID Qty: 0 RF: 0 meloxicam 7.5 mg Tablet 7.5 mg PO BID Qty: 60 RF: 0 oxycodone 5 mg Tablet 5 - 10 mg PO Q4H PRN PRN (Reason: Pain Score 4-10) Qty: 0 RF: 0 Continued quinapril 5 mg tablet 10 mg PO QHS RF: 0 biotin 10,000 MCG capsule 10,000 mcg PO QHS RF: 0 cholecalciferol (vitamin D3) 1,000 UNIT tablet 1,000 unit PO QHS RF: 0 cod liver oil Capsule 2 cap PO DAILY RF: 0 turmeric 400 mg Capsule 800 mg PO DAILY RF: 0 famotidine 20 MG tablet 40 mg PO DAILY RF: 0 Referrals / Follow Up: physical,therapy [Other] - 05/26/21 10:00 am Raji Sams MD [Primary Care Provider] - Danny Buck PA-C [PHYSICIAN NUCLEAR MEDICINE OFFICER] - 06/05/21 2:00 pm Disposition Disposition (needs filled in before D/C Order can be placed): Home, Self Care
[2021-05-22 09:00] VITALS: BP 116/68; PULSE 76; RESP 16; TEMP 36.7; O2SAT 95
[2021-05-22] MEDS: Famotidine 20 MG Tablet 40 MG PO (09:25)
[2021-05-22] MEDS: Ensure Surgery 237 ML LIQUID PO ×2 (09:25→14:37)
[2021-05-22] MEDS: Aspirin 81 MG TAB.CHEW PO (09:25)
[2021-05-22] MEDS: Senna/Docusate Sodium 1 Tablet 2 TABLET PO (09:30)
--- NOTE | 2021-05-22 11:03 | PCM.PN.HOSP ---
Documented by User: Darrell DANGELO 05/22/21 11:10 Subjective Subjective Patient is a 80-year-old female comfortably resting in a chair, eating breakfast, alert and oriented x3. Patient denies development of any new symptoms overnight. Does not appear in acute distress. Objective Data Objective Data Vital Signs: Vital Signs Temp Pulse Resp BP Pulse Ox 98.0 F 76 16 116/68 95 05/22/21 09:00 05/22/21 09:00 05/22/21 09:00 05/22/21 09:00 05/22/21 09:00 Oxygen Flow Rate (L/min) 6 Oxygen Delivery Method Room Air Weight: 164 lb Body Mass Index (BMI) 29.5 Intake & Output: Intake and Output for Last 24 Hours 05/20/21 05/21/21 05/22/21 23:59 23:59 23:59 Intake Total 4834.50 / 5234.50 450 / 450 Output Total 1000 / 1000 Balance 3834.50 / 4234.50 450 / 450 Lab / Micro Data Result Diagrams: 05/22/21 05:46 05/22/21 05:46 Labs: Laboratory Results - last 24 hr 05/22/21 05:46: WBC 9.5, RBC 3.42 L, Hgb 10.8 L, Hct 32.7 L, MCV 95.6, MCH 31.6, MCHC 33.0, RDW Std Deviation 42.3, RDW Coeff of Mirtha 12.2, Plt Count 182, MPV 10.2 05/22/21 05:46: Sodium 140, Potassium 4.4, Chloride 107, Carbon Dioxide 28.0, Anion Gap 5, BUN 18, Creatinine 1.08 H, Estim Creat Clear Calc 33.41, Est GFR (MDRD) Af Amer 63, Est GFR (MDRD) Non-Af 52 L, BUN/Creatinine Ratio 16.7, Glucose 99, Calcium 8.3 L Micro: Microbiology 05/07/21 11:43 Swab (Method) Nasal Screen MRSA/MSSA - Final Radiography Diagnostic Testing: Radiology Impression Knee X-Ray 05/21/21 10:50 IMPRESSION: Uncomplicated left total knee arthroplasty. Electronically Signed: Javier Farr MD at 12:10 EDT Tel , Service support , Physical Exam Const alert, oriented x3 and no apparent distress HEENT head/scalp atraumatic and moist oral mucous membranes Head and Scalp: normocephalic Eyes PERRL, EOMs intact bilaterally and conjunctivae normal Neck no lymphadenopathy, supple and no JVD Resp normal respiratory effort, no retractions and no use of accessory muscles Cardio regular rate, regular rhythm, no murmurs and no JVD GI normal to inspection, nondistended, normoactive bowel sounds, soft to palpation and non-tender Extremity normal to inspection, full ROM and no clubbing, cyanosis or edema Peripheral Pulses: Yes pulses 2+ throughout Skin no rashes or lesions noted, no wounds and skin turgor normal Neuro CN's II-XII intact bilaterally Psych affect normal Assessment & Plan Assessment/Plan (1) Status post total left knee replacement: (2) S/P total knee arthroplasty: (3) Left knee pain: (4) Osteoarthritis: PLAN: Patient is a 80-year-old female who presents to the hospital medicine service on consult from orthopedics status post left knee TKA for severe osteoarthritis. 1) HTN Continue quinapril. 2) GERD Continue famotidine. 3) vitamin D deficiency Continue vitamin D supplementation. 4) osteoarthritis status post left knee TKA Postop day 1, management per orthopedic surgery. Patient seen by Darrell Camp PA-C, under the supervision of Dr. Banks. Documented by User: Dr. Ronaldo Banks DO 05/22/21 19:09 Objective Data Lab / Micro Data Result Diagrams: 05/22/21 05:46 05/22/21 05:46 Charges/Coding Addendum Addendum: Patient was seen and examined today independently of Darrell Camp, she voices no complaints of any shortness of breath, chest pain, or fever or chills. On examination she appeared in good health and spirits, she does not appear to be in any distress. Vital signs as documented. Skin warm and dry and without overt rashes. Neck without JVD, thyroid appears normal, trachea is midline, neck is supple. Lungs clear, normal air movement was noted. Heart exam notable for regular rhythm, normal sounds and absence of murmurs, rubs or gallops. Abdomen unremarkable and without evidence of organomegaly, masses, or abdominal aortic enlargement, bowel sounds are present in all 4 quadrants, no abdominal tenderness was noted. Extremities - no cyanosis was noted, no clubbing was noted. Neuro: Cranial nerves II through XII are grossly intact, no focal motor deficits were noted, sensation to light touch and pinprick is intact, motor exam 5/5 throughout. Psych: Patient is alert and oriented x3, she does not appear anxious or depressed, she does not appear agitated. Patient appears stable medically for discharge, orthopedic surgery is discharged the patient home, I have reviewed Darrell Mejia's progress note including his medical assessment and plan of care and endorse it. Visit Charges OBSV E&M: 57047 Subsequent observation care L3
--- NOTE | 2021-05-22 12:20 | CASEMGMT ---
Addendum entered by Akira Alarcon 05/22/21 13:24: 1220: VARGAS form explained re: Observation status for treatment of left total knee replacement. Explained hospitalization will be paid per her insurance policy for Outpatient billing and condition will continue to be evaluated for Inpt necessity. Also let pt know that [facility] sends paper in the billing packet with their phone number if questions arise. Discussed Pharmacy section of VARGAS form and self administered medication guideline. Pt verbalizes understanding and does not have further questions. Form signed, copy made and placed in chart, and original given to pt. Original Note: RN CM ASSISTANT MEN'S SOCCER COACH CM to room to meet with patient for initial transition planning/care coordination assessment. RN CM introduced self and role at [facility]. Pt voices understanding and consents to assessment at this time. Pt sitting up in chair in room in no distress at this time. @ bedside. Pt is A/O at this time and answers all questions appropriately. Care providers, pharmacy, and demographics verified/updated at this time. PCP: Dr Raji Sams Specialists: Dr Lepe-ella Preferred Pharmacy: [facility] [place] Insurance: [employer], Other Commercial Prescription Benefit: Yes Living Will/HPOA: Has both. is HPOA LNOK: , Quang Living Arrangements: Lives w/ in 2-story home w/basement. FFSU. 3 steps to enter home. Independent prior to surgery. able to help as needed. Transportation: Pt, . DME: States has the following DME: cane, walker (borrowed). Offered to assist w/getting walker through pt's insurance so she has one of her own, but pt declines at this time. Pt has been using the borrowed walker while @ [facility] and PT to work w/pt this afternoon w/her walker. Pt states no need for further DME at this time. HHC/SNF: No history of either. No needs identified. Pt wishes to return home w/OP therapy at [facility]. Has initial appt for 05/26. Pt states has no concerns with going home at time of discharge. CM to follow for any further discharge planning/needs. Pt / voice no concerns/needs at this time. Advised them to ask for CM if any questions/concerns/needs arise. They voice understanding. PLAN: Home w/spousal support, Out-pt PT @ [facility], and discharge plans in place. Hardeep BSN RN CM
[2021-05-22 14:15] VITALS: BP 131/67; PULSE 81; RESP 16; TEMP 36.6; O2SAT 98
[2021-05-22] MEDS: oxyCODONE 5 MG Tablet PO (14:17)
== END 2021-05-22 14:37 | disposition home or self-care (01) ==
LOC: MS3 18:14
PROVIDERS: Anesthesiology; Admitting Provider Specialist; PCP Family Medicine; Referring Provider Specialist; Visit Provider Internal Medicine
PROC: 0SRD0JZ Replacement of Left Knee Joint with Synthetic Substitute, Open Approach (ICD-10-PCS; CPT 27447; principal; 2021-05-21 08:15)
DX: M17.12 Unilateral primary osteoarthritis, left knee (principal); N18.30 Chronic kidney disease, stage 3 unspecified; M21.062 Valgus deformity, not elsewhere classified, left knee; G47.30 Sleep apnea, unspecified; I12.9 Hypertensive chronic kidney disease with stage 1 through stage 4 chronic kidney disease, or unspecified chronic kidney disease; K21.9 Gastro-esophageal reflux disease without esophagitis; N39.3 Stress incontinence (female) (male); E55.9 Vitamin D deficiency, unspecified; Z79.899 Other long term (current) drug therapy
CPT/HCPCS: 27447; 64447; S2900; 36415; 73560; 73700; 74022; 80048; 80053; 82043; 82306; 82570; 82962; 83735; 83970; 85025; 85027; 87081; 96365; 96366; 97110; 97116; 97162; 97166; 97530; 99218; 99251; C1776; J7120; G0378; G0463; J2405

== ENCOUNTER 2021-08-29 14:30 | Outpatient (CLI) | payer MEDICARE, OTHER, SELFPAY ==
[2021-08-29 14:33] LABS: Lyme Ab Screen Interpretation REF LAB
[2021-08-29 16:44] LABS: Absolute Lymphocyte Count 2.09 X10^3/uL (0.83-4.51); Absolute Neutrophil Count 3.7 X10^3/uL (2.0-7.7); Basophil# 0.02 X10^3/uL; Basophil% 0.3 % (0-1); Eosinophil# 0.13 X10^3/uL; Hematocrit 40.5 % (37-47); Hemoglobin 13.4 g/dL (12.0-15.0); Lymphocyte # 2.09 X10^3/ul (0.83-4.51); Lymphocyte % 32.3 % (19-41); Mean Corp Hgb Conc 33.1 g/dL (32-36); Mean Corpuscular Hgb 31.8 pg (27.0-32.0); Mean Platelet Vol. 10.8 fl (6.2-12.0); Monocyte# 0.49 X10^3/uL; Monocyte% 7.6 % (0-10); NRBC Flagged by Analyzer 0 % (0-5); Neutrophil # 3.74 X10^3/uL (2.7-7.7); Neutrophil % 57.6 % (47-70); Platelet Count 231 K/mm3 (150-450); RBC Distribution Width CV 12.5 % (11.6-14.6); RBC Distribution Width SD 44.1 fl (35.1-43.9); Red Blood Count 4.22 M/mm3 (4.2-5.4); White Blood Count 6.5 K/mm3 (4.4-11.0)
[2021-08-29 17:03] LABS: Vitamin B12 574 pg/mL (211-911)
[2021-08-29 17:50] LABS: ALB/GLOB Ratio 0.8 RATIO (0.9-2.4); AST(SGOT) 24 U/L (15-37); Alanine Aminotransfer ALT/SGPT 19 U/L (13-56); Albumin, Serum 3.3 g/dL (3.2-5.0); Alkaline Phosphatase 98 U/L (45-117); Anion Gap 3 (5-15); BUN 30 mg/dL (7-18); BUN/Creat Ratio 30.9 RATIO (10-20); CRP < 2.90 mg/L (0.0-3.0); Calcium,Total 8.8 mg/dL (8.5-10.1); Chloride 107 mmol/L (98-107); Creatinine, Serum 0.97 mg/dL (0.55-1.02); EST Glomerular Filtration Rate 59 mL/min (>60); Est Glom Filt Rate - Afr Amer 71 mL/min (>60); Globulin 3.9 g/dL (2.2-4.2); Glucose 110 mg/dL (74-106); Potassium 4.2 mmol/L (3.5-5.1); Protein, Total 7.2 g/dL (6.4-8.2); Sodium Level 139 mmol/L (136-145); Thyroid Stim Hormone (TSH) 2.64 uIU/mL (0.358-3.74)
[2021-08-31 22:19] LABS: ANTINUCLEAR ANTIBODIES DIRECT Negative (Negative)
[2021-09-02 08:20] LABS: Lyme Scn Total Ab w/Rflx <0.91 ISR (0.00-0.90); Zinc, Plasma or Serum 53 ug/dL (44-115)
== END 2021-08-29 23:59 | disposition home or self-care (01) ==
LOC: MFPLAB 14:31
PROVIDERS: PCP Family Medicine; Referring Provider Family Medicine; Visit Provider Family Medicine
DX: R41.3 Other amnesia (principal)
CPT/HCPCS: 36415; 80053; 82607; 82746; 84443; 84630; 85025; 86038; 86140; 86618

== ENCOUNTER → 2022-01-05 | Outpatient (CLI) | payer MEDICARE, OTHER, SELFPAY ==
[2022-01-05 12:26] LABS: Hemoglobin A1c 5.4 % (3.8-5.6)
[2022-01-05 12:31] LABS: Anion Gap 3 (5-15); BUN 25 mg/dL (7-18); BUN/Creat Ratio 24.5 RATIO (10-20); Calcium,Total 8.7 mg/dL (8.5-10.1); Chloride 107 mmol/L (98-107); Creatinine, Serum 1.02 mg/dL (0.55-1.02); EST Glomerular Filtration Rate 55 mL/min (>60); Est Glom Filt Rate - Afr Amer 67 mL/min (>60); Glucose 92 mg/dL (74-106); Potassium 4.3 mmol/L (3.5-5.1); Sodium Level 140 mmol/L (136-145)
[2022-01-23 11:08] LABS: Free Kappa Light Chains 36.2 mg/L (3.3-19.4); Free Lambda Light Chains 25.3 mg/L (5.7-26.3)
== END | disposition home or self-care (01) ==
LOC: MFPLAB 11:02
PROVIDERS: PCP Family Medicine; Visit Provider Psychiatry & Neurology Neurology
DX: R73.9 Hyperglycemia, unspecified (principal); F03.90 Unspecified dementia, unspecified severity, without behavioral disturbance, psychotic disturbance, mood disturbance, and anxiety; G62.9 Polyneuropathy, unspecified
CPT/HCPCS: 80048; 83036; 83883; 84425

== ENCOUNTER → 2022-01-09 | Outpatient (CLI) | payer MEDICARE, OTHER, SELFPAY ==
--- NOTE | 2022-01-09 10:26 | MRI_ITS ---
EXAM: MR HEAD WITHOUT INTRAVENOUS CONTRAST CLINICAL INDICATION: Dementia -- Patient has had bilateral hip and left knee replacements TECHNIQUE: Multiplanar and multisequence MR images of the brain were obtained without intravenous contrast. This report was created using [employer] report Segway technology. COMPARISON: None. FINDINGS: BRAIN AND EXTRA-AXIAL SPACES: Unremarkable. No intra- or extra-axial hemorrhage. No evidence of acute infarct. No intracranial mass or mass effect. There is preservation of the buchanan/white matter interface. Posterior fossa structures are unremarkable. Ventricles are appropriate for age. No hydrocephalus. Basal cisterns are patent. SELLA: Unremarkable. Normal sella turcica, pituitary gland, infundibular stalk, optic chiasm and hypothalamus. AUDITORY SYSTEM: Unremarkable. The internal auditory canals are patent. BONES/JOINTS: Unremarkable. No discrete lytic or blastic abnormalities. SINUSES: Unremarkable as visualized. Clear. MASTOID AIR CELLS: Unremarkable as visualized. Clear. ORBITS: Unremarkable as visualized. Both globes, extraocular muscles, optic nerves and retrobulbar fat appear unremarkable. VASCULATURE: Unremarkable as visualized. Normal flow voids in the major intracranial circulation. MRI/Brain without Contrast IMPRESSION: No acute abnormality. Electronically Signed: José Finch MD at 13:13 EDT ,
== END | disposition home or self-care (01) ==
LOC: MRI 10:09
PROVIDERS: PCP Family Medicine; Referring Provider Psychiatry & Neurology Neurology; Visit Provider Psychiatry & Neurology Neurology
DX: F03.90 Unspecified dementia, unspecified severity, without behavioral disturbance, psychotic disturbance, mood disturbance, and anxiety (principal)
CPT/HCPCS: 70551

== ENCOUNTER → 2022-01-22 | Outpatient (CLI) | payer MEDICARE, OTHER, SELFPAY | END | disposition home or self-care (01) | LOC: SL 20:02 | PROVIDERS: PCP Family Medicine; Referring Provider Psychiatry & Neurology Neurology; Visit Provider Psychiatry & Neurology Neurology | DX: G47.30 Sleep apnea, unspecified (principal) | CPT/HCPCS: 95810 ==

== ENCOUNTER → 2022-04-07 | Outpatient (CLI) | payer MEDICARE, OTHER, SELFPAY ==
[2022-04-09 18:07] LABS: Albumin 3.5 g/dL (2.9-4.4); Alpha-1-Globulins 0.2 g/dL (0.0-0.4); Alpha-2-Globulins 0.6 g/dL (0.4-1.0); Gamma Globulin 1.3 g/dL (0.4-1.8); Immunoglobulin A 256 mg/dL (64-422); Immunoglobulin G 1229 mg/dL (586-1602); Immunoglobulin M 181 mg/dL (26-217); PROEL- TOTAL PROTEIN 6.6 g/dL (6.0-8.5)
== END | disposition home or self-care (01) ==
LOC: MFPLAB 09:19
PROVIDERS: PCP Family Medicine; Visit Provider Psychiatry & Neurology Neurology
DX: G62.9 Polyneuropathy, unspecified (principal)
CPT/HCPCS: 36415; 82784; 84165; 86334; 86335

== ENCOUNTER → 2022-04-14 | Outpatient (CLI) | payer MEDICARE, OTHER, SELFPAY ==
[2022-04-15 15:08] LABS: Endomysial Antibody IgA Negative (Negative)
[2022-04-16 08:20] LABS: Immunoglobulin A 258 mg/dL (64-422); t-Transglutaminase IgA <2 U/mL (0-3)
== END | disposition home or self-care (01) ==
LOC: MFPLAB 10:01
PROVIDERS: PCP Family Medicine; Referring Provider Family Medicine; Visit Provider Family Medicine
DX: R19.7 Diarrhea, unspecified (principal)
CPT/HCPCS: 36415; 82784; 83516; 86255

== ENCOUNTER → 2022-04-15 | Outpatient (CLI) | payer MEDICARE, OTHER, SELFPAY ==
[2022-04-21 15:05] LABS: Pancreatic Elastase, Fecal 254 (>200)
[2022-04-23 15:47] LABS: Fats, Neutral Normal (.); Fats, Total Normal (.)
== END | disposition home or self-care (01) ==
LOC: LABSPEC 15:08
PROVIDERS: PCP Family Medicine; Referring Provider Family Medicine; Visit Provider Family Medicine
DX: R19.7 Diarrhea, unspecified (principal)
CPT/HCPCS: 82653; 82705; 83630

== ENCOUNTER 2022-06-23 07:50 | Day surgery (SDC) | payer MEDICARE, OTHER, SELFPAY ==
[2022-06-23] VITALS (7 sets, daily range): BP systolic 120–148; BP diastolic 74–84; PULSE 62–72; RESP 16–18; TEMP 36.3–36.4; O2SAT 96–98; BMI 28.8
--- NOTE | 2022-06-23 | COLBX_PTH ---
PATIENT: DREW BROWNE LOC: EN U#:[id number] AGE/SX: 81/F ROOM: RE06/23/[address]: Dr. Ritesh Sargent MD : 1940 BED: DIS: 06/23/2022 SPEC #: [id number] RECD: 06/23/22 12:14 STATUS: LAURENT MATOS #: [id number] HATTIE: 06/23/22 00:[address]: Ritesh Sargent DEPT: SURGICAL PATHOLOGY RECD BY: Tank Barragan ENTERED: 06/23/22 12:14 SP TYPE: COLON BX OTHR DR: Dr. Raji Sams MD Tissues: COLON BIOPSY Procedures: Surgery Specimen Level IV HEADER OPERATION: Colonoscopy (MAC), biopsy PRE-OP DIAGNOSIS: History of colonic polyps, family history of colon cancer TISSUE SUBMITTED: Random colonic biopsy MICROSCOPIC DIAGNOSIS Colon, random biopsy: Melanosis coli. Scant strips of benign glandular mucosa. See comment. AM:jeovany 06/24/2022 COMMENT The specimen primarily consists of mucoid material. Clinical correlation is suggested. MICROSCOPIC DESCRIPTION Slides are reviewed. GROSS DESCRIPTION Received in fixative is one container labeled with the patient's name and designated random colonic biopsy. The specimen consists of multiple irregular fragments of light rose soft tissue that in aggregate measure 1.5 x 0.6 x 0.1 cm. The specimen is totally submitted in one cassette. / SJ:jeovany 06/23/2022 TC:5 CPT: 04239
[2022-06-23] MEDS: Lactated Ringers 1,000 ML 15 ML IV (08:00)
--- NOTE | 2022-06-23 08:08 | PCM.HP.BLA ---
History and Physical Date of Admission: 06/23/22 Visit Reasons:?COLONOSCOPY Chief Complaint: colonsocopy Is patient in pain?: No Allergies codeine Adverse Reaction (Verified 05/29/22 08:56) Nausea/Vom/Diarrhea Medications quinapril 5 mg tablet 10 mg PO QHS 06/10/20 [History Confirmed 04/07/22] memantine 10 mg tablet 10 mg PO BID #60 tabs 04/09/22 [Rx Confirmed 04/09/22] cholecalciferol (vitamin D3) 25 mcg (1,000 unit) capsule 25 mcg PO DAILY 05/29/22 [History Confirmed 05/29/22] PFSH Medical History? Arthritis Blackout Cancer Chronic kidney disease, stage 3 unspecified Family hx of colon cancer Gastric reflux History of colon polyps History of echocardiogram History of pain when walking History of renal disease HTN (hypertension) Hx of basal cell carcinoma Hypertension Osteoarthritis Squamous cell skin cancer Stress incontinence Wears glasses Surgical History? Cataracts, bilateral History of cholecystectomy History of colonoscopy (~06/2017) History of tonsillectomy History of total left hip arthroplasty Hx of total hip arthroplasty S/P total knee arthroplasty Family History? Brother Cancer ?? ? parathyroid ?? ? renal Diabetes Alzheimers disease SuicideFather Cancer ?? ? prostate ArthritisSister Colon cancerMother Diabetes Arthritis Social History? Smoking Status:? Never smoker second hand exposure:? No alcohol intake:? never substance use type:? does not use what type of physical activity do you participate in:? other jocelyn/zoroastrian:? Mosque seatbelt use:? always HPI HPI HPI: 81-year-old female.? I have most recently seen her regarding her colon issues June 10, 2020.? At that point she had a personal history of colon polyps and a family history of colon cancer in her sister Marva Adam.? The patient's most recent colonoscopy was July 06, 2017.? She had descending and sigmoid diverticulosis.? I felt that I had good visualization.? Sigmoid colon was tortuous.? Consider follow-up at 5 years. For age 81 she is enjoying a good quality of life. She has had problems for the last 2 to 3 months with diarrhea.? Sporadic but per but exuberant.? She had been placed on Aciphex and admitted initially attributed to that.? She is able to sometimes do a significant amount of outdoor work without any problem but then will have diarrhea explosively in the mornings.? No bright red blood per rectum no melena.? No weight loss.? No fever or chills. ROS General General: No weight change, appetite, fatigue, colon cancer, breast cancer or weakness HEENT HEENT: No difficulty swallowing, eye injury, eye surgery, swollen glands or hoarseness Endo Endocrine: No thyroid disease, diabetes mellitus, thyroid cancer, Hair loss, heat intolerance or cold intolerance Skin Skin: Yes changing moles; No rash Breast Breast: No left breast lump, right breast lump, nipple discharge, breast pain, abnormal mammogram, abnormal US or breast enlargement Musc Musculoskeletal: Yes arthritis; No back problems, rheumatoid arthritis, gout or joint pain Cardio Cardiovascular: No murmur, pacemaker, heart disease, atrial fibrillation, high blood pressure, heart attack, heart stent, palpitations, shortness of breat with exertion or chest pain Psych Psychiatric: No depression, anxiety or hearing voices Resp Respiratory: No shortness of breath, Yes sleep apnea, No cough, No COPD, No asthma, No emphysema and No wheezing Gastro Gastrointestinal: No abdominal pain, No nausea or vomiting, No diarrhea, No constipation, No blood in stool, No acid reflux, No hemorrhoids, No ulcers, No gallbladder problem and No black,tarry stools Steven Hematologic: No blood thinners, No blood disorders, No bleeding, No anemia and No blood clots Neuro Neurologic: No system reviewed and no additional complaints, except as documented, No as per HPI, No abnormal gait, No abnormal hearing, No abnormal movements, No abnormal speech, No behavioral changes, No burning sensations, No confusion, No convulsions, No disequilibrium, No dizziness, No localized weakness, No frequent falls, No headache(s), No lack of coordination, No loss of vision, No memory loss, No numbness, No other visual disturbances, No radicular pain, No restless legs, No sensory deficit, No syncope, No tingling, No tremor(s), No weakness and No other Exam Const General: cooperative and comfortable Nutritional Appearance: average body habitus [facility] Head: normal to inspection Eyes General: appearance normal, both eyes and all related structures Resp Effort & Inspection: normal respiratory effort Auscultation: clear to auscultation bilaterally Cardio Rate: regular rate Rhythm: regular rhythm GI Inspection: normal to inspection Palpation: soft and no hepatosplenomegaly Musc Cervical Spine: normal cervical lordosis Skin General: no rashes or lesions noted Rashes: no rashes Neuro General: patient alert, patient awake and patient oriented x3 Extrem General: no calf tenderness Psych Appearance: grossly normal Assessment and Plan Assessment and Plan (1) Personal history of colonic polyps: ?Status:?Acute (2) Family hx of colon cancer: ?Status:?Acute ?Plan: I recommend to the patient a colonoscopy with possible biopsy or polypectomy as indicated.? She is due for her surveillance event due to her personal history of colon polyps and a family history of this history of colon cancer.? The patient is enjoying a very high quality of life.? Because of the new onset of unexplained diarrhea I also recommended running at random colonic biopsies.? She has had an opportunity ask and have questions answered.? We will schedule procedure at her discretion. Copy: Dr. Raji Sargent M.D., F.A.C.S. I have examined the patient and the H&P has been reviewed. There are no clinical changes since date of exam. Ritesh Sargent M.D., F.A.C.S.
--- NOTE | 2022-06-23 09:44 | OP.COLON_ITS ---
Patient Name: Emily Ortez Procedure Date: 06/23/2022 9:14 AM Date of : 1940 Age: 81 Procedure: Colonoscopy Indications: Chronic diarrhea, Clinically significant diarrhea of unexplained origin Providers: Ritesh Sargent MD Medicines: See the Anesthesia note for documentation of the administered medications Patient Profile: Last Colonoscopy: June 2017. Complications: No immediate complications. Procedure: Pre-Anesthesia Assessment: - Prior to the procedure, a History and Physical was performed, and patient medications and allergies were reviewed. The patient's tolerance of previous anesthesia was also reviewed. The risks and benefits of the procedure and the sedation options and risks were discussed with the patient. All questions were answered, and informed consent was obtained. Prior Anticoagulants: The patient has taken no previous anticoagulant or antiplatelet agents. ASA Grade Assessment: II - A patient with mild systemic disease. After reviewing the risks and benefits, the patient was deemed in satisfactory condition to undergo the procedure. After I obtained informed consent, the scope was passed under direct vision. Throughout the procedure, the patient's blood pressure, pulse, and oxygen saturations were monitored continuously. The Colonoscope was introduced through the anus and advanced to the cecum, identified by appendiceal orifice and ileocecal valve. The colonoscopy was performed without difficulty. The patient tolerated the procedure well. The quality of the bowel preparation was good. The ileocecal valve and the appendiceal orifice were photographed. Scope In: 9:23:47 AM Scope Withdrawal Time 0 hours 9 minutes 36 seconds Scope Out: 9:37:52 AM Total Procedure Duration Time 0 hours 14 minutes 5 seconds Findings: The digital rectal exam findings include non-thrombosed external hemorrhoids, non-thrombosed internal hemorrhoids and internal hemorrhoids that prolapse with straining, but spontaneously regress to the resting position (Grade II). Multiple diverticula were found in the sigmoid colon and descending colon. Biopsies for histology were taken with a cold forceps from the entire colon for evaluation of microscopic colitis. The exam was otherwise without abnormality. Impression: - Non-thrombosed external hemorrhoids, non-thrombosed internal hemorrhoids and internal hemorrhoids that prolapse with straining, but spontaneously regress to the resting position (Grade II) found on digital rectal exam. - Diverticulosis in the sigmoid colon and in the descending colon. - The examination was otherwise normal. - Biopsies were taken with a cold forceps from the entire colon for evaluation of microscopic colitis. Recommendation: - Discharge patient to home. - Resume previous diet. - Continue present medications. - Repeat colonoscopy is not recommended due to current age (66 years or older) for screening purposes. - Telephone my office for pathology results in 1 week. Procedure Code(s): --- Professional --- 61506, Colonoscopy, flexible; with biopsy, single or multiple Diagnosis Code(s): --- Professional --- K64.1, Second degree hemorrhoids K64.4, Residual hemorrhoidal skin tags K52.9, Noninfective gastroenteritis and colitis, unspecified R19.7, Diarrhea, unspecified K57.30, Diverticulosis of large intestine without perforation or abscess without bleeding CPT copyright 2017 [employer]. All rights reserved. The codes documented in this report are preliminary and upon interpersonal communications professor review may be revised to meet current compliance requirements. Ritesh Sargent MD 06/23/2022 9:43:46 AM This report has been signed electronically. Number of Addenda: 0 Note Initiated On: 06/23/2022 9:14 AM
--- NOTE | 2022-06-23 09:45 | OP.CCLET_ITS ---
06/23/2022 Raji Sams [address] [place] [address] Re : Colonoscopy procedure for Emily Ortez Dear Dr. Sams This procedure was performed on Thursday, June 23, 2022. My impressions and recommendations are as follows: Impressions : - Non-thrombosed external hemorrhoids, non-thrombosed internal hemorrhoids and internal hemorrhoids that prolapse with straining, but spontaneously regress to the resting position (Grade II) found on digital rectal exam. - Diverticulosis in the sigmoid colon and in the descending colon. - The examination was otherwise normal. - Biopsies were taken with a cold forceps from the entire colon for evaluation of microscopic colitis. Recommendations : - Discharge patient to home. - Resume previous diet. - Continue present medications. - Repeat colonoscopy is not recommended due to current age (66 years or older) for screening purposes. - Telephone my office for pathology results in 1 week. My findings are described in the full procedure note, which is enclosed. If I can be of further assistance, please feel free to contact me at Doctor phone number(s): Work: . Sincerely, Ritesh Sargent MD 06/23/2022 9:43:46 AM This report has been signed electronically.
== END 2022-06-23 10:36 | disposition home or self-care (01) ==
LOC: EN 07:51 → AC 07:53
PROVIDERS: PCP Family Medicine; Referring Provider Family Medicine; Visit Provider Surgery
PROC: 0DJD8ZZ Inspection of Lower Intestinal Tract, Via Natural or Artificial Opening Endoscopic (ICD-10-PCS; CPT 45378; principal; 2022-06-23 08:55)
DX: K64.4 Residual hemorrhoidal skin tags (principal); F03.90 Unspecified dementia, unspecified severity, without behavioral disturbance, psychotic disturbance, mood disturbance, and anxiety; F02.80 Dementia in other diseases classified elsewhere, unspecified severity, without behavioral disturbance, psychotic disturbance, mood disturbance, and anxiety; N18.30 Chronic kidney disease, stage 3 unspecified; K52.9 Noninfective gastroenteritis and colitis, unspecified; Z80.0 Family history of malignant neoplasm of digestive organs; K57.30 Diverticulosis of large intestine without perforation or abscess without bleeding; Z86.010 Personal history of colon polyps; K64.1 Second degree hemorrhoids; G62.9 Polyneuropathy, unspecified; G47.30 Sleep apnea, unspecified; Z96.652 Presence of left artificial knee joint; I12.9 Hypertensive chronic kidney disease with stage 1 through stage 4 chronic kidney disease, or unspecified chronic kidney disease
CPT/HCPCS: 45380; 88305; J7120; J2405

== ENCOUNTER → 2022-09-16 | Outpatient (CLI) | payer MEDICARE, OTHER, SELFPAY | END | disposition home or self-care (01) | LOC: SL 10:19 | PROVIDERS: PCP Family Medicine; Referring Provider Internal Medicine Critical Care Medicine; Visit Provider Internal Medicine Critical Care Medicine | DX: G47.30 Sleep apnea, unspecified (principal) | CPT/HCPCS: 95806 ==

== ENCOUNTER → 2022-10-22 | Outpatient (CLI) | payer MEDICARE, OTHER, SELFPAY ==
--- NOTE | 2022-10-22 12:32 | BI_ITS ---
MAMMOGRAPHY - BILATERAL SCREENING REASON FOR EXAM: Female, 82 years old. Routine annual screening examination. PERTINENT HISTORY: Non-contributory. TECHNIQUE: Digital bilateral breast conner (3D mammographic acquisition) in the CC and MLO projections. 2-D mediolateral oblique (MLO) and craniocaudad (CC) views of both breasts were obtained. CAD: Full Field Digital Mammography with Computer Added Detection was performed. COMPARISON: Comparison is made with prior study of September 27, 2019 and April 21, 2016. FINDINGS: Breast Composition: There are scattered areas of fibroglandular density. There are no dominant masses or suspicious calcifications. No other significant abnormalities are identified. There has been no significant change since the prior study. BI/SCRN MAMM (CAD)W/CONNER BILAT IMPRESSION: Stable bilateral screening mammogram. Yearly follow-up mammogram recommended. (A) ASSESSMENT CATEGORY: BIRADS Category 1: Negative. A letter regarding these results will be sent to the patient by the facility within 30 days. Approximately 10% of breast cancers are not detected by mammography. A normal mammogram should not delay biopsy of a clinically suspicious abnormality. [id number] Electronically Signed: Alexy Samson MD at 13:33 EDT ,
== END | disposition home or self-care (01) ==
LOC: OPBI 12:28
PROVIDERS: PCP Family Medicine; Referring Provider Nurse Practitioner Family; Visit Provider Nurse Practitioner Family
DX: Z12.31 Encounter for screening mammogram for malignant neoplasm of breast (principal)
CPT/HCPCS: 77063; 77067

== ENCOUNTER → 2022-12-31 | Outpatient (CLI) | payer OTHER, SELFPAY ==
[2022-12-31 12:31] LABS: Absolute Lymphocyte Count 2.57 X10^3/uL (0.83-4.51); Absolute Neutrophil Count 3.3 X10^3/uL (2.0-7.7); Basophil# 0.05 X10^3/uL; Basophil% 0.7 % (0-1); Eosinophil# 0.18 X10^3/uL; Eosinophils% 2.7 % (0-5); Hemoglobin 13.3 g/dL (12.0-15.0); Lymphocyte # 2.57 X10^3/ul (0.83-4.51); Mean Corp Hgb Conc 31.7 g/dL (32-36); Mean Corpuscular Hgb 31.8 pg (27.0-32.0); Mean Corpuscular Volume 100.5 fL (81-99); Mean Platelet Vol. 10.8 fl (6.2-12.0); Monocyte# 0.67 X10^3/uL; Monocyte% 9.9 % (0-10); NRBC Flagged by Analyzer 0 % (0-5); Neutrophil # 3.26 X10^3/uL (2.7-7.7); Neutrophil % 48.3 % (47-70); Platelet Count 219 K/mm3 (150-450); RBC Distribution Width CV 12.7 % (11.6-14.6); RBC Distribution Width SD 47.1 fl (35.1-43.9); Red Blood Count 4.18 M/mm3 (4.2-5.4); White Blood Count 6.8 K/mm3 (4.4-11.0)
[2022-12-31 12:52] LABS: Vitamin D,25 Hydroxy 62.2 ng/mL
[2022-12-31 13:02] LABS: AST(SGOT) 25 U/L (15-37); Alanine Aminotransfer ALT/SGPT 21 U/L (13-56); Albumin, Serum 3.5 g/dL (3.2-5.0); Alkaline Phosphatase 98 U/L (45-117); Anion Gap 4 (5-15); BUN 29 mg/dL (7-18); BUN/Creat Ratio 27.9 RATIO (10-20); Calcium,Total 9.2 mg/dL (8.5-10.1); Chloride 109 mmol/L (98-107); Creatinine, Serum 1.04 mg/dL (0.55-1.02); EST Glomerular Filtration Rate 54 mL/min (>60); Est Glom Filt Rate - Afr Amer 65 mL/min (>60); Globulin 3.6 g/dL (2.2-4.2); Glucose 96 mg/dL (74-106); Potassium 4.4 mmol/L (3.5-5.1); Protein, Total 7.1 g/dL (6.4-8.2); Sodium Level 141 mmol/L (136-145)
[2022-12-31 13:55] LABS: PTHIN 54.6 pg/mL (18.4-80.1)
[2022-12-31 17:13] LABS: Microalbumin,Random Urine 5.8 mg/L (NO RANGE EST.); Microalbumin:Creatinine Ratio 6.6 mg/g CRE (<30 mg/g CRE)
== END | disposition home or self-care (01) ==
LOC: MFPLAB 10:10
PROVIDERS: PCP Family Medicine; Visit Provider Family Medicine
DX: I12.9 Hypertensive chronic kidney disease with stage 1 through stage 4 chronic kidney disease, or unspecified chronic kidney disease (principal); N18.31 Chronic kidney disease, stage 3a
CPT/HCPCS: 36415; 80053; 82043; 82306; 82570; 83970; 85025

== ENCOUNTER → 2023-02-26 | Outpatient (CLI) | payer OTHER, SELFPAY ==
[2023-03-02 14:09] LABS: Albumin 3.7 g/dL (2.9-4.4); Alpha-1-Globulins 0.2 g/dL (0.0-0.4); Alpha-2-Globulins 0.5 g/dL (0.4-1.0); Gamma Globulin 1.1 g/dL (0.4-1.8); Immunoglobulin A 209 mg/dL (64-422); Immunoglobulin G 1077 mg/dL (586-1602); Immunoglobulin M 177 mg/dL (26-217); PROEL- TOTAL PROTEIN 6.3 g/dL (6.0-8.5)
== END | disposition home or self-care (01) ==
LOC: MFPLAB 10:49
PROVIDERS: PCP Family Medicine; Visit Provider Psychiatry & Neurology Neurology
DX: G62.9 Polyneuropathy, unspecified (principal)
CPT/HCPCS: 36415; 82784; 84165; 86334; 86335

== ENCOUNTER → 2023-06-28 | Outpatient (CLI) | payer OTHER, SELFPAY ==
[2023-06-28 12:34] LABS: Absolute Lymphocyte Count 2.63 X10^3/uL (0.83-4.51); Absolute Neutrophil Count 3.4 X10^3/uL (2.0-7.7); Basophil# 0.04 X10^3/uL; Basophil% 0.6 % (0-1); Eosinophil# 0.21 X10^3/uL; Eosinophils% 3.1 % (0-5); Hematocrit 43.2 % (37-47); Hemoglobin 13.4 g/dL (12.0-15.0); Lymphocyte # 2.63 X10^3/ul (0.83-4.51); Lymphocyte % 38.3 % (19-41); Mean Corpuscular Hgb 31.2 pg (27.0-32.0); Mean Corpuscular Volume 100.7 fL (81-99); Mean Platelet Vol. 10.5 fl (6.2-12.0); Monocyte# 0.61 X10^3/uL; Monocyte% 8.9 % (0-10); NRBC Flagged by Analyzer 0 % (0-5); Neutrophil # 3.36 X10^3/uL (2.7-7.7); Neutrophil % 48.8 % (47-70); Platelet Count 217 K/mm3 (150-450); RBC Distribution Width CV 12.7 % (11.6-14.6); RBC Distribution Width SD 46.6 fl (35.1-43.9); Red Blood Count 4.29 M/mm3 (4.2-5.4); White Blood Count 6.9 K/mm3 (4.4-11.0)
[2023-06-28 13:03] LABS: AST(SGOT) 25 U/L (15-37); Alanine Aminotransfer ALT/SGPT 21 U/L (13-56); Albumin, Serum 3.5 g/dL (3.2-5.0); Alkaline Phosphatase 91 U/L (45-117); Anion Gap 4 (5-15); BUN 26 mg/dL (7-18); BUN/Creat Ratio 23.2 RATIO (10-20); Chloride 108 mmol/L (98-107); Creatinine, Serum 1.12 mg/dL (0.55-1.02); EST Glomerular Filtration Rate 50 mL/min (>60); Est Glom Filt Rate - Afr Amer 60 mL/min (>60); Globulin 3.6 g/dL (2.2-4.2); Glucose 69 mg/dL (74-106); Potassium 4.3 mmol/L (3.5-5.1); Protein, Total 7.1 g/dL (6.4-8.2); Sodium Level 142 mmol/L (136-145)
[2023-06-28 16:23] LABS: Microalbumin,Random Urine 9.1 mg/L (NO RANGE EST.); Microalbumin:Creatinine Ratio 5.7 mg/g CRE (<30 mg/g CRE)
== END | disposition home or self-care (01) ==
LOC: MFPLAB 11:20
PROVIDERS: PCP Family Medicine; Visit Provider Family Medicine
DX: I10 Essential (primary) hypertension (principal); Z86.718 Personal history of other venous thrombosis and embolism
CPT/HCPCS: 36415; 80053; 82043; 82570; 85025

== ENCOUNTER → 2023-08-10 | Outpatient (CLI) | payer MEDICARE, SELFPAY ==
--- NOTE | 2023-08-10 08:55 | BI_ITS ---
MAMMOGRAPHY - BILATERAL DIAGNOSTIC REASON FOR EXAM: Female, 82 years old. Right breast. PERTINENT HISTORY: Non-contributory. TECHNIQUE: Digital bilateral breast mishel (3D mammographic acquisition) in the CC and MLO projections. 2-D mediolateral oblique (MLO) and craniocaudad (CC) views of both breasts were obtained. CAD: Full Field Digital Mammography with Computer Added Detection was performed. COMPARISON: Comparison is made with prior study dated October 22, 2022 and September 27, 2019 FINDINGS: Breast Composition: There are scattered areas of fibroglandular density. The palpable lump corresponds to a 8.5 mm x 14.8 mm nodule in the lateral aspect of the right areola. This was not seen on prior study. Correlation with ultrasound is recommended. No other significant abnormalities are identified. BI/DIAG MAMM W/CAD, BILAT IMPRESSION: Nodular density in the lateral aspect of the right areola as described. Correlation with ultrasound is recommended. ASSESSMENT CATEGORY: BIRADS Category 0: Incomplete. Need additional imaging evaluation. A letter regarding these results will be sent to the patient by the facility within 30 days. Approximately 10% of breast cancers are not detected by mammography. A normal mammogram should not delay biopsy of a clinically suspicious abnormality. Electronically Signed: Alexy Samson MD at 9:52 EST ,
--- NOTE | 2023-08-10 08:55 | US_ITS ---
STUDY: ULTRASOUND BREAST - RIGHT REASON FOR EXAM: Female, 82 years old. Right periareolar palpable lump TECHNIQUE: Axial and longitudinal images of the RIGHT breast were performed with a high resolution ultrasound transducer. # OF IMAGES: 20 COMPARISON: Comparison is made with prior mammogram done earlier today. FINDINGS: RIGHT Breast: The palpable abnormality corresponds to a 1.5 cm x 1.9 cm x 1.2 cm irregular hypoechoic solid mass with increased vascularity at the 12:00 position of the breast and 1 cm from the nipple. Biopsy recommended. US/Breast Limited Unilateral IMPRESSION: The palpable abnormality corresponds to a 1.5 cm x 1.9 cm x 1.2 cm irregular hypoechoic solid mass with increased vascularity. Biopsy recommended. ASSESSMENT CATEGORY: BIRADS Category 4: Suspicious - Biopsy Should Be Considered. A letter regarding these results will be sent to the patient by the facility within 30 days. Electronically Signed: Alexy Samson MD at 12:36 EST ,
== END | disposition home or self-care (01) ==
PROVIDERS: PCP Family Medicine; Referring Provider Family Medicine; Visit Provider Family Medicine
DX: N63.12 Unspecified lump in the right breast, upper inner quadrant (principal)
CPT/HCPCS: 76642; 77062; 77066; G0279

== ENCOUNTER → 2023-08-17 | Outpatient (CLI) | payer MEDICARE, SELFPAY ==
--- NOTE | 2023-08-17 | IMM_PTH ---
PATHOLOGY RESULTS PATIENT: DREW BROWNE LOC: [facility] U#:[id number] AGE/SX: 82/F ROOM: RE08/17/[address]: Dr. Ritesh Sargent MD : 1940 BED: DIS: 08/17/2023 SPEC #: [id number] RECD: 08/18/23 13:47 STATUS: SOUChemo REQ #: [id number] HATTIE: 08/17/23 00:[address]: Ritesh Sargent DEPT: IMMUNOHISTOCHEMISTRY RECD BY: oKki Xiong ENTERED: 08/18/23 13:48 SP TYPE: IMMUNO OTHR DR: Dr. Raji Sams MD Tissues: Right breast, NOS Procedures: CALPONIN-1 (add) CK5-6 (add) CK8 (add) E-CAD (add) HER2 MANUEL (add) KI-67 (add) P53 (add) OH (add) IN SITU HYBRIDIZATION P40 (add) MOC-31 (add) ER (initial) PHYSICIAN & [address] [address] SPECIMEN INFORMATION: Tissue Source: Right breast Clinical Info: Right breast mass Specimen Number: [id number] CPT code: 61924, 57140 x7, 21046 x3, 82281 x2 METHODOLOGY: Deparaffinized sections of prefer/formalin-fixed tissue or PAP/DQ stained slides are incubated with monoclonal/polyclonal antibodies/oligonucleotide probes. Localization is made via biotin free immunoperoxidase method. Appropriate controls are performed and reacted as expected. Results on target cell population are indicated in the following table: RESULTS: ANTIBODY / CLONE RESULT P53 (DO-7) positive, missense pattern Ki-67 (30-9) positive, 90% CK8 (15ervcC95) positive CK5-6 (D5 & 1684) negative Calponin-1 (QD301R) negative P40 (BC28) negative E-Cad (ECH-6) positive MOC-31 (4561) positive MORPHOMETRIC ANALYSIS ER (clone 6F11) 90%, strong OH (clone 16/1E2) 38%, moderate Her-2Neu (clone CB11) 0-3+ (variable) The prognostic test for HER2 is performed on formalin-fixed paraffin embedded tissue. A 3+ (positive) staining pattern is defined as intense, homogeneous, complete, circumferential membranous staining in >10% of contiguous tumor cells. A similar weak (2+) staining pattern is interpreted as equivocal. EMELI follow-up testing is recommended for all equivocal cases. Positivity/negativity for ER/OH is reported if > or < 1% of the tumor cells are immuno- reactive, respectively. The ASCO/CAP criteria is used for scoring. Reference: Journal of Clinical Oncology, 2013; 31:2842-1934 & 2010; 16:2583-1552. Ischemic time: Less than one hour. Duration of fixation: 9 Hrs; Sample Adequate: Yes. These assays have not been validated on decalcified tissues. Results should be interpreted with caution given the likelihood of false negativity on decalcified specimens or fixation greater than 72 hours. Alternative testing methods (FISH/dualISH for Her2; gene expression for ER) are recommended, if applicable. Please notify the laboratory if additional testing is required. These tests were developed and their performance characteristics determined by [facility]. They may not have been cleared or approved by the U.S. Food and Drug Administration. The FDA has determined that such clearance or approval is not necessary. The above immunohistochemical/dualISH markers are ordered and reviewed by the Pathologist. INTERPRETATION: Right breast mass, core biopsy: Invasive ductal carcinoma, nuclear grade 3. Positive for estrogen receptors (favorable prognostic indicator). Positive for progesterone receptors (favorable prognostic indicator). Equivocal for overexpression of HEC2ztq. AM:jeovany 08/19/2023 Case has been reviewed in consultation with Dr. Huang who concurs with the above diagnosis. IDC:SJ ADDENDUM ADDENDUM 08/20/2023 11:44 IN SITU HYBRIDIZATION (EMELI) FOR HER2 Interpretation: Amplified HER2 : CEP-17 Ratio: 2.6 Average HER2 Signal: 9.45 Average CEP-17 Signal: 3.65 Number of Tumor Cells Scanned: 50 Interpretative Information: The INFORM HER2 Dual EMELI DNA Probe Cocktail assay is performed on formalin-fixed paraffin embedded tissue and determines HER2 gene status by detecting HER2 copies via silver in situ hybridization (SISH) and Chromosome 17 copies via chromogenic red in situ hybridization on tumor cells. A minimum of 20 cells representing > 10% of contiguous and homogeneous invasive tumor cells were analyzed. HER2 gene status is classified as Non-amplified (HER2/Chr17 ratio < 2.0) or Amplified (HER2/Chr17 ratio greater than or equal to 2.0). If the resulting HER2/Chr17 ratio falls within 1.8 - 2.2 (Borderline), retesting by FISH is recommended. Reference: Antonella AC, Julia HESTER, Akin DG, et al: Recommendations for Human Epidermal Growth Factor Receptor 2 Testing in Breast Cancer: [place] Society of Clinical On[employer] / College of [place] [employer] Clinical Practice Guideline Update. J Clin Oncol 31:3425-1855, 2013. AM:jeovany 08/20/2023
--- NOTE | 2023-08-17 10:30 | BRBX_PTH ---
PATHOLOGY RESULTS PATIENT: DREW BROWNE LOC: [facility]ERT U#:[id number] AGE/SX: 82/F ROOM: RE08/17/[address]: Dr. Ritesh Sargent MD : 1940 BED: DIS: 08/17/2023 SPEC #: [id number] RECD: 08/17/23 12:07 STATUS: LAURENT MATOS #: [id number] HATTIE: 08/17/23 10:[address]: Ritesh Sargent DEPT: SURGICAL PATHOLOGY RECD BY: Gerri Storey ENTERED: 08/17/23 12:08 SP TYPE: BREAST BX OTHR DR: Dr. Raji Sams MD Tissues: Right breast, NOS Procedures: Surgery Specimen Level IV HEADER OPERATION: Right breast biopsy PRE-OP DIAGNOSIS: Right breast mass TISSUE SUBMITTED: Right breast tissue MICROSCOPIC DIAGNOSIS Right breast mass, core biopsy: Invasive ductal carcinoma with the follow characteristics: Maximal length - 11.4 millimeters Nuclear grade - 3/3 See comment. AM:jeovany 08/18/2023 COMMENT Immunohistochemistry ([id number]) supports the above diagnosis. Case has been reviewed in consultation with Dr. Huang who concurs with the above diagnosis. IDC:SJ MICROSCOPIC DESCRIPTION Slides are reviewed. GROSS DESCRIPTION Received in fixative is one container labeled with the patient's name and designated right breast. The specimen consists of two elongated fragments of rose-yellow fibroadipose tissue that in aggregate measure 1.5 x 0.3 x 0.1 cm. The entire specimen is submitted in one cassette. / SJ:jeovany 08/17/2023 TC:0 Ischemic Time: 1 minute Fixation Time: 9 hours CPT: 44943
== END | disposition home or self-care (01) ==
LOC: LAB 11:19 → LABSPEC 11:22
PROVIDERS: PCP Family Medicine; Referring Provider Surgery; Visit Provider Surgery
DX: N63.10 Unspecified lump in the right breast, unspecified quadrant (principal)
CPT/HCPCS: 81002; 88305; 88341; 88342; 88368

== ENCOUNTER → 2023-09-09 | Outpatient (CLI) | payer MEDICARE, SELFPAY ==
--- NOTE | 2023-09-09 09:22 | RAD_ITS ---
INDICATION: PREOP RIGHT BREAST MASTECTOMY EXAMINATION/TECHNIQUE: X-RAY - XR Chest 2 Views COMPARISON: No previous relevant examinations available for comparison.. FINDINGS: LIFE-SUPPORT AND LINES: 1. None HEART AND VESSELS: The cardiac silhouette, pulmonary vasculature have normal appearance. No evidence of congestive failure. LUNGS AND PLEURAL SPACES: Lungs are clear. No focal infiltrate, consolidation or effusions. No evidence of pneumothorax. No pulmonary mass is noted. MEDIASTINUM AND HILAR REGIONS: No masses adenopathy noted. No areas of calcification. Visualized upper airway is normal in position. BONY ELEMENTS: No acute bony changes noted. RAD/Chest PA and Lateral IMPRESSION: 1. No evidence of acute cardiopulmonary process Electronically Signed: Shelton Chery MD at 21:44 EST ,
== END | disposition home or self-care (01) ==
LOC: RAD 09:20
PROVIDERS: PCP Family Medicine; Referring Provider Surgery; Visit Provider Surgery
DX: Z90.11 Acquired absence of right breast and nipple (principal)
CPT/HCPCS: 71046

== ENCOUNTER 2023-09-15 12:46 | Observation (INO) | payer MEDICARE, SELFPAY ==
--- NOTE | 2023-09-09 09:03 | EKG12_ITS ---
Test Reason : PREOP Blood Pressure : / mmHG Vent. Rate : 075 BPM Atrial Rate : 075 BPM P-R Int : 140 ms QRS Dur : 064 ms QT Int : 382 ms P-R-T Axes : 006 -09 018 degrees QTc Int : 426 ms Normal sinus rhythm Normal ECG Confirmed by Jona Sarah ([id number]), graphics editor NAM FRAGOSO ([id number]) on 09/10/2023 9:27:54 AM Referred By: Ritesh Sargent Confirmed By:Jona Sarah
--- NOTE | 2023-09-09 09:03 | EKG12_ITS ---
Test Reason : PREOP Blood Pressure : / mmHG Vent. Rate : 075 BPM Atrial Rate : 075 BPM P-R Int : 140 ms QRS Dur : 064 ms QT Int : 382 ms P-R-T Axes : 006 -09 018 degrees QTc Int : 426 ms Normal sinus rhythm Normal ECG Confirmed by Jona Sarah ([id number]), book editor NAM FRAGOSO ([id number]) on 09/10/2023 9:27:54 AM Referred By: Ritesh Sargent Confirmed By:Jona Sarah
[2023-09-09 10:05] LABS: Hemoglobin 13.3 g/dL (12.0-15.0); Mean Corp Hgb Conc 32.4 g/dL (32-36); Mean Corpuscular Hgb 32.3 pg (27.0-32.0); Mean Corpuscular Volume 99.5 fL (81-99); Mean Platelet Vol. 10.8 fl (6.2-12.0); Platelet Count 207 K/mm3 (150-450); RBC Distribution Width CV 12.5 % (11.6-14.6); RBC Distribution Width SD 45.9 fl (35.1-43.9); Red Blood Count 4.12 M/mm3 (4.2-5.4); White Blood Count 6.9 K/mm3 (4.4-11.0)
[2023-09-09 11:03] LABS: ALB/GLOB Ratio 1.2 RATIO (0.9-2.4); AST(SGOT) 27 U/L (15-37); Alanine Aminotransfer ALT/SGPT 23 U/L (13-56); Albumin, Serum 3.8 g/dL (3.2-5.0); Alkaline Phosphatase 92 U/L (45-117); Anion Gap 1 (5-15); BUN 32 mg/dL (7-18); BUN/Creat Ratio 27.4 RATIO (10-20); Calcium,Total 9.2 mg/dL (8.5-10.1); Chloride 109 mmol/L (98-107); Creatinine, Serum 1.17 mg/dL (0.55-1.02); EST Glomerular Filtration Rate 47 mL/min (>60); Est Glom Filt Rate - Afr Amer 57 mL/min (>60); Globulin 3.3 g/dL (2.2-4.2); Glucose 99 mg/dL (74-106); Potassium 4.1 mmol/L (3.5-5.1); Protein, Total 7.1 g/dL (6.4-8.2); Sodium Level 141 mmol/L (136-145)
[2023-09-15] VITALS (14 sets, daily range): BP systolic 126–182; BP diastolic 78–94; PULSE 76–86; RESP 16; TEMP 36.4–37.7; O2SAT 94–99; BMI 29.0
--- NOTE | 2023-09-15 | AXNB_PTH ---
PATIENT: DREW BROWNE LOC: MS3 U#:[id number] AGE/SX: 83/F ROOM: [facility] [place] RE09/15/[address]: Dr. Ritesh Sargent MD : 1940 BED: 1 DIS: 09/16/2023 SPEC #: [id number] RECD: 09/15/23 14:03 STATUS: LAURENT MATOS #: [id number] HATTIE: 09/15/23 00:[address]: Ritesh Sargent DEPT: SURGICAL PATHOLOGY RECD BY: Koki Xiong ENTERED: 09/16/23 07:27 SP TYPE: AX NODE BX OTHR DR: Dr. 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 Right axillary sentinel lymph nodes, biopsy: One out of six lymph nodes positive for macrometastatic carcinoma. AM:jeovany 09/15/2023 Case has been reviewed in consultation with Dr. Huang who concurs with the above diagnosis. IDC:NAVEED MICROSCOPIC DIAGNOSIS A. Right axillary sentinel lymph nodes, biopsy: One out of six lymph nodes positive for macrometastatic carcinoma. See comment. B. Right axillary lymph nodes, regional dissection: 12 out of 12 lymph nodes, negative for metastatic carcinoma. C. Right breast, mastectomy: Invasive ductal carcinoma. See cancer summary in the comment section. SJ:jeovany 09/22/2023 COMMENT A. Immunohistochemistry ([id number]) supports the above diagnosis. Metastatic carcinoma measures 1.1 x 0.8 cm (measured microscopically). Extranodal extension is not seen. B. Immunohistochemistry ([id number]) supports the above diagnosis. BREAST CANCER SUMMARY Procedure - total mastectomy Specimen laterality - right Tumor size - 1.7 x 1.5 x 1.5 cm Histologic type - Invasive ductal carcinoma, not otherwise specified Histologic grade ([place] grade): Glandular/tubular differentiation score - 3 Nuclear pleomorphism score - 3 Mitotic count score - 2 Overall grade - grade 3 (score of 8) Tumor focality - single focus of carcinoma. Ductal carcinoma in situ - present Negative for extensive intraductal component (EIC). Size (extent) of DCIS - DCIS comprise about <5% of the total tumor volume. Number of blocks with DCIS - 4 Number of blocks examined - 12 Architectural pattern - solid and cystic Nuclear grade - grade 3 (high) Necrosis - not identified Lobular carcinoma in situ - not present Tumor extension: Skin - skin is present and uninvolved. Nipple - DCIS does not involve the nipple epidermis. Skeletal muscle - skeletal muscle is present and free of carcinoma. Margins - Margins are uninvolved by invasive carcinoma and ductal carcinoma in situ. Invasive carcinoma and ductal carcinoma in situ are 0.3 cm away from the overlying skin and 4.0 cm away from the next closest inferior margin. Regional lymph nodes: Total number of lymph nodes examined - 18 Number of sentinel lymph nodes examined - 6 Number of lymph nodes with macrometastasis - 1 Number of lymph nodes with micrometastasis and isolated tumor cells - 0 Size of largest metastatic deposits - 1.1 x 0.8 cm Extranodal extension - not identified Treatment effect - no known presurgical therapy. Lymphvascular invasion - not identified Dermal lymphvascular invasion - not identified Additional Pathologic Findings: - Focal intraductal hyperplasia with atypia. - Ductal dilatation. - A small capillary hemangioma (0.3 cm in greatest dimension). Ancillary Studies: Previously performed on same tumor ([id number] / [id number]) ER: positive, 90%, strong AR: positive, 38%, moderate Lut0ihy: equivocal, 0-3+ Her2 by EMELI: Amplified Microcalcifications - not identified Clinical History - Please make reference to previous specimen ([id number]), right breast mass, core biopsy with diagnosis of invasive ductal carcinoma. PATHOLOGIC STAGE: pT1c pN1a pMx The above summary is in compliance with [employer] [place] [employer] (CAP) Cancer Protocols Checklist and [place] Joint Committee on Cancer (AJCC), Staging Manual, 8th Ed. Case has been reviewed in consultation with Dr. Dickinson who concurs with the above diagnosis. IDC:AM MICROSCOPIC DESCRIPTION Slides are reviewed. GROSS DESCRIPTION A - Received fresh for frozen section diagnosis labeled with the patient's name is a specimen designated right axillary sentinel lymph node. The specimen consists of a piece of fibroadipose tissue containing multiple nodules consistent with lymph nodes measuring 7.5 x 6.0 x 2.0 cm. Multiple nodules consistent with lymph nodes are identified measuring 0.6 to 2.2 cm in greatest dimension. The lymph nodes are submitted in entirety for frozen section diagnosis in six cassettes as follows: 1 - two lymph nodes, 2??one bisected lymph node, 3 - one lymph node, 4 - one lymph node, 5 & 6 - one bisected lymph node. / AM:jeovany 09/16/2023 B - Received in fixative is one container labeled with the patient's name and designated right axillary lymph nodes dissection. The specimen consists of multiple irregular fragments of yellow adipose tissue containing multiple nodules consistent with lymph nodes that in aggregate measure 8.5 x 7.0 x 1.5 cm. Multiple lymph nodes are identified measuring 0.4 to 2.2 cm in greatest dimension. The lymph nodes are submitted in entirety in eight cassettes as follows: 1-4 - each containing one bisected lymph node, 5?&?6??one serially sectioned lymph node, 7 & 8 - each cassette containing multiple lymph nodes. Sections are submitted after additional fixation. / SJ:jeovany 09/16/2023 C - Received in fixative is one container labeled with the patient's name and designated right breast. The specimen consists of a mastectomy specimen consisting of breast tissue with overlying skin ellipse. The breast tissue measures 21.0 x 18.0 x 7.0 cm. The overlying skin ellipse measures 15.0 x 9.0 cm. The nipple measures 1.1 cm in greatest dimension. The skin surface shows a pink, round lesion measuring 0.3 cm in greatest dimension in the upper inner quadrant of the skin piece. The specimen is inked as follows: posterior - black, superior - blue, inferior - green, medial - red and lateral - orange. More dictation will follow after fixation. / SJ:jeovany 09/16/2023 Serial sections reveal a rose, indurated lesion in the central compartment just underneath the skin of areola region measuring 1.7 x 1.5 x 1.5 cm. This mass is 0.3 cm away from the overlying areolar skin. The next closest margin is inferior margin which is 4.0 cm away from the tumor. The tumor is not ulcerated through the skin. Sections of the rest of the breast tissue reveal rose-yellow adipose cut surfaces with scant fibrous areas. Brim Flexer sections are submitted in 12 cassettes as follows: 1??nipple, entirely submitted, 2 - perpendicular medial, lateral and posterior margins, 3 - perpendicular superior and inferior margins, 4-7 - tumor with overlying skin, 8 - Brim Flexer section adjacent to the tumor, 9-12 - Brim Flexer sections away from the tumor. Sections are submitted after additional fixation. / SJ:jeovany 09/17/2023 More sections are submitted as follows: 13 - skin lesion, entirely submitted. / SJ:jeovany 09/21/2023 TC:0 CPT: 14687 x3, 13562, 73857 x5
--- NOTE | 2023-09-15 | AXNB_PTH ---
PATIENT: DREW BROWNE LOC: MS3 U#:[id number] AGE/SX: 83/F ROOM: [facility] [place] RE09/15/[address]: Dr. Ritesh Sargent MD : 1940 BED: 1 DIS: 09/16/2023 SPEC #: [id number] RECD: 09/15/23 14:03 STATUS: LAURENT MATOS #: [id number] HATTIE: 09/15/23 00:[address]: Ritesh Sargent DEPT: SURGICAL PATHOLOGY RECD BY: Koki Xiong ENTERED: 09/16/23 07:27 SP TYPE: AX NODE BX OTHR DR: Dr. 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 Right axillary sentinel lymph nodes, biopsy: One out of six lymph nodes positive for macrometastatic carcinoma. AM:jeovany 09/15/2023 Case has been reviewed in consultation with Dr. Huang who concurs with the above diagnosis. IDC:NAVEED MICROSCOPIC DIAGNOSIS A. Right axillary sentinel lymph nodes, biopsy: One out of six lymph nodes positive for macrometastatic carcinoma. See comment. B. Right axillary lymph nodes, regional dissection: 12 out of 12 lymph nodes, negative for metastatic carcinoma. C. Right breast, mastectomy: Invasive ductal carcinoma. See cancer summary in the comment section. SJ:jeovany 09/22/2023 COMMENT A. Immunohistochemistry ([id number]) supports the above diagnosis. Metastatic carcinoma measures 1.1 x 0.8 cm (measured microscopically). Extranodal extension is not seen. B. Immunohistochemistry ([id number]) supports the above diagnosis. BREAST CANCER SUMMARY Procedure - total mastectomy Specimen laterality - right Tumor size - 1.7 x 1.5 x 1.5 cm Histologic type - Invasive ductal carcinoma, not otherwise specified Histologic grade (Helper grade): Glandular/tubular differentiation score - 3 Nuclear pleomorphism score - 3 Mitotic count score - 2 Overall grade - grade 3 (score of 8) Tumor focality - single focus of carcinoma. Ductal carcinoma in situ - present Negative for extensive intraductal component (EIC). Size (extent) of DCIS - DCIS comprise about <5% of the total tumor volume. Number of blocks with DCIS - 4 Number of blocks examined - 12 Architectural pattern - solid and cystic Nuclear grade - grade 3 (high) Necrosis - not identified Lobular carcinoma in situ - not present Tumor extension: Skin - skin is present and uninvolved. Nipple - DCIS does not involve the nipple epidermis. Skeletal muscle - skeletal muscle is present and free of carcinoma. Margins - Margins are uninvolved by invasive carcinoma and ductal carcinoma in situ. Invasive carcinoma and ductal carcinoma in situ are 0.3 cm away from the overlying skin and 4.0 cm away from the next closest inferior margin. Regional lymph nodes: Total number of lymph nodes examined - 18 Number of sentinel lymph nodes examined - 6 Number of lymph nodes with macrometastasis - 1 Number of lymph nodes with micrometastasis and isolated tumor cells - 0 Size of largest metastatic deposits - 1.1 x 0.8 cm Extranodal extension - not identified Treatment effect - no known presurgical therapy. Lymphvascular invasion - not identified Dermal lymphvascular invasion - not identified Additional Pathologic Findings: - Focal intraductal hyperplasia with atypia. - Ductal dilatation. - A small capillary hemangioma (0.3 cm in greatest dimension). Ancillary Studies: Previously performed on same tumor ([id number] / [id number]) ER: positive, 90%, strong MO: positive, 38%, moderate Vni7sqv: equivocal, 0-3+ Her2 by EMELI: Amplified Microcalcifications - not identified Clinical History - Please make reference to previous specimen ([id number]), right breast mass, core biopsy with diagnosis of invasive ductal carcinoma. PATHOLOGIC STAGE: pT1c pN1a pMx The above summary is in compliance with [employer] [place] [employer] (CAP) Cancer Protocols Checklist and [place] Joint Committee on Cancer (AJCC), Staging Manual, 8th Ed. Case has been reviewed in consultation with Dr. Dickinson who concurs with the above diagnosis. IDC:AM MICROSCOPIC DESCRIPTION Slides are reviewed. GROSS DESCRIPTION A - Received fresh for frozen section diagnosis labeled with the patient's name is a specimen designated right axillary sentinel lymph node. The specimen consists of a piece of fibroadipose tissue containing multiple nodules consistent with lymph nodes measuring 7.5 x 6.0 x 2.0 cm. Multiple nodules consistent with lymph nodes are identified measuring 0.6 to 2.2 cm in greatest dimension. The lymph nodes are submitted in entirety for frozen section diagnosis in six cassettes as follows: 1 - two lymph nodes, 2??one bisected lymph node, 3 - one lymph node, 4 - one lymph node, 5 & 6 - one bisected lymph node. / AM:jeovany 09/16/2023 B - Received in fixative is one container labeled with the patient's name and designated right axillary lymph nodes dissection. The specimen consists of multiple irregular fragments of yellow adipose tissue containing multiple nodules consistent with lymph nodes that in aggregate measure 8.5 x 7.0 x 1.5 cm. Multiple lymph nodes are identified measuring 0.4 to 2.2 cm in greatest dimension. The lymph nodes are submitted in entirety in eight cassettes as follows: 1-4 - each containing one bisected lymph node, 5?&?6??one serially sectioned lymph node, 7 & 8 - each cassette containing multiple lymph nodes. Sections are submitted after additional fixation. / SJ:jeovany 09/16/2023 C - Received in fixative is one container labeled with the patient's name and designated right breast. The specimen consists of a mastectomy specimen consisting of breast tissue with overlying skin ellipse. The breast tissue measures 21.0 x 18.0 x 7.0 cm. The overlying skin ellipse measures 15.0 x 9.0 cm. The nipple measures 1.1 cm in greatest dimension. The skin surface shows a pink, round lesion measuring 0.3 cm in greatest dimension in the upper inner quadrant of the skin piece. The specimen is inked as follows: posterior - black, superior - blue, inferior - green, medial - red and lateral - orange. More dictation will follow after fixation. / SJ:jeovany 09/16/2023 Serial sections reveal a rose, indurated lesion in the central compartment just underneath the skin of areola region measuring 1.7 x 1.5 x 1.5 cm. This mass is 0.3 cm away from the overlying areolar skin. The next closest margin is inferior margin which is 4.0 cm away from the tumor. The tumor is not ulcerated through the skin. Sections of the rest of the breast tissue reveal rose-yellow adipose cut surfaces with scant fibrous areas. Lift Driver sections are submitted in 12 cassettes as follows: 1??nipple, entirely submitted, 2 - perpendicular medial, lateral and posterior margins, 3 - perpendicular superior and inferior margins, 4-7 - tumor with overlying skin, 8 - Lift Driver section adjacent to the tumor, 9-12 - Lift Driver sections away from the tumor. Sections are submitted after additional fixation. / SJ:jeovany 09/17/2023 More sections are submitted as follows: 13 - skin lesion, entirely submitted. / SJ:jeovany 09/21/2023 TC:0 CPT: 90646 x3, 28789, 10804 x5
--- NOTE | 2023-09-15 | IMM_PTH ---
PATIENT: DREW BROWNE LOC: MS3 U#:[id number] AGE/SX: 83/F ROOM: MS306 RE09/15/[address]: Dr. Ritesh Sargent MD : 1940 BED: 1 DIS: 09/16/2023 SPEC #: [id number] RECD: 09/21/23 12:28 STATUS: LAURENT RESusan #: [id number] HATTIE: 09/15/23 00:[address]: Ritesh Sargent DEPT: IMMUNOHISTOCHEMISTRY RECD BY: Koki Xiong ENTERED: 09/21/23 12:31 SP TYPE: IMMUNO OTHR DR: Dr. Raji Sams MD Tissues: A - Axillary lymph node, NOS B - Axillary lymph node, NOS Procedures: CK7 (add) Pankeratin (initial) Pankeratin (add) PHYSICIAN & INSTITUTION [place] [id number] SPECIMEN INFORMATION: Tissue Source: A - Right axillary sentinel lymph nodes, B - Right axillary lymph nodes Clinical Info: Malignant neoplasm of areola of right breast, ER positive Specimen Number: [id number] A1-A6, B1-B8 CPT code: 83432 x2, 04318 x26 METHODOLOGY: Deparaffinized sections of prefer/formalin-fixed tissue or PAP/DQ stained slides are incubated with monoclonal/polyclonal antibodies/oligonucleotide probes. Localization is made via biotin free immunoperoxidase method. Appropriate controls are performed and reacted as expected. Results on target cell population are indicated in the following table: RESULTS: ANTIBODY / CLONE RESULT Block A1 AE1-3 (AE1/AE3/PCK26) negative CK7 (OV-TL12/30) negative Block A2 AE1-3 (AE1/AE3/PCK26) positive CK7 (OV-TL12/30) positive Block A3 AE1-3 (AE1/AE3/PCK26) negative CK7 (OV-TL12/30) negative Block A4 AE1-3 (AE1/AE3/PCK26) negative CK7 (OV-TL12/30) negative Block A5 AE1-3 (AE1/AE3/PCK26) negative CK7 (OV-TL12/30) negative Block A6 AE1-3 (AE1/AE3/PCK26) negative CK7 (OV-TL12/30) negative Block B1 AE1-3 (AE1/AE3/PCK26) negative CK7 (OV-TL12/30) negative Block B2 AE1-3 (AE1/AE3/PCK26) negative CK7 (OV-TL12/30) negative Block B3 AE1-3 (AE1/AE3/PCK26) negative CK7 (OV-TL12/30) negative Block B4 AE1-3 (AE1/AE3/PCK26) negative CK7 (OV-TL12/30) negative Block B5 AE1-3 (AE1/AE3/PCK26) negative CK7 (OV-TL12/30) negative Block B6 AE1-3 (AE1/AE3/PCK26) negative CK7 (OV-TL12/30) negative Block B7 AE1-3 (AE1/AE3/PCK26) negative CK7 (OV-TL12/30) negative Block B8 AE1-3 (AE1/AE3/PCK26) negative CK7 (OV-TL12/30) negative These tests were developed and their performance characteristics determined by [facility]. They may not have been cleared or approved by the U.S. Food and Drug Administration. The FDA has determined that such clearance or approval is not necessary. The above immunohistochemical/dualISH markers are ordered and reviewed by the Pathologist. INTERPRETATION: A. Right axillary sentinel lymph nodes, biopsy: One out of six lymph nodes, positive for macrometastatic carcinoma. B. Right axillary lymph nodes, regional dissection: Twelve out of twelve lymph nodes, negative for metastatic carcinoma. SJ:jeovany 09/22/2023
--- NOTE | 2023-09-15 | IMM_PTH ---
PATIENT: DREW BROWNE LOC: MS3 U#:[id number] AGE/SX: 83/F ROOM: MS306 RE09/15/[address]: Dr. Ritesh Sargent MD : 1940 BED: 1 DIS: 09/16/2023 SPEC #: [id number] RECD: 09/21/23 12:28 STATUS: LAURENT RESusan #: [id number] HATTIE: 09/15/23 00:[address]: Ritesh Sargent DEPT: IMMUNOHISTOCHEMISTRY RECD BY: Koki Xiong ENTERED: 09/21/23 12:31 SP TYPE: IMMUNO OTHR DR: Dr. Raji Sams MD Tissues: A - Axillary lymph node, NOS B - Axillary lymph node, NOS Procedures: CK7 (add) Pankeratin (initial) Pankeratin (add) PHYSICIAN & INSTITUTION [place] [address] SPECIMEN INFORMATION: Tissue Source: A - Right axillary sentinel lymph nodes, B - Right axillary lymph nodes Clinical Info: Malignant neoplasm of areola of right breast, ER positive Specimen Number: [id number] A1-A6, B1-B8 CPT code: 26714 x2, 60124 x26 METHODOLOGY: Deparaffinized sections of prefer/formalin-fixed tissue or PAP/DQ stained slides are incubated with monoclonal/polyclonal antibodies/oligonucleotide probes. Localization is made via biotin free immunoperoxidase method. Appropriate controls are performed and reacted as expected. Results on target cell population are indicated in the following table: RESULTS: ANTIBODY / CLONE RESULT Block A1 AE1-3 (AE1/AE3/PCK26) negative CK7 (OV-TL12/30) negative Block A2 AE1-3 (AE1/AE3/PCK26) positive CK7 (OV-TL12/30) positive Block A3 AE1-3 (AE1/AE3/PCK26) negative CK7 (OV-TL12/30) negative Block A4 AE1-3 (AE1/AE3/PCK26) negative CK7 (OV-TL12/30) negative Block A5 AE1-3 (AE1/AE3/PCK26) negative CK7 (OV-TL12/30) negative Block A6 AE1-3 (AE1/AE3/PCK26) negative CK7 (OV-TL12/30) negative Block B1 AE1-3 (AE1/AE3/PCK26) negative CK7 (OV-TL12/30) negative Block B2 AE1-3 (AE1/AE3/PCK26) negative CK7 (OV-TL12/30) negative Block B3 AE1-3 (AE1/AE3/PCK26) negative CK7 (OV-TL12/30) negative Block B4 AE1-3 (AE1/AE3/PCK26) negative CK7 (OV-TL12/30) negative Block B5 AE1-3 (AE1/AE3/PCK26) negative CK7 (OV-TL12/30) negative Block B6 AE1-3 (AE1/AE3/PCK26) negative CK7 (OV-TL12/30) negative Block B7 AE1-3 (AE1/AE3/PCK26) negative CK7 (OV-TL12/30) negative Block B8 AE1-3 (AE1/AE3/PCK26) negative CK7 (OV-TL12/30) negative These tests were developed and their performance characteristics determined by [facility]. They may not have been cleared or approved by the U.S. Food and Drug Administration. The FDA has determined that such clearance or approval is not necessary. The above immunohistochemical/dualISH markers are ordered and reviewed by the Pathologist. INTERPRETATION: A. Right axillary sentinel lymph nodes, biopsy: One out of six lymph nodes, positive for macrometastatic carcinoma. B. Right axillary lymph nodes, regional dissection: Twelve out of twelve lymph nodes, negative for metastatic carcinoma. SJ:jeovany 09/22/2023
[2023-09-15] MEDS: Lactated Ringers 1,000 ML 15 ML IV (09:28)
--- NOTE | 2023-09-15 09:30 | NM_ITS ---
PROCEDURE: NUCLEAR MEDICINE Injection [place] Node - RIGHT breast(s). REASON FOR EXAM: Female, 83 years old. Right breast cancer. TECHNIQUE: [place] node localization using radionuclide methods of the RIGHT breast(s) was performed following subcutaneous administration of 1.1 mCi of of sulfur colloid Tc-99m. COMPARISON STUDIES : NM - None. CR - Not available for review at this time. CT - Not available for review at this time. MR - Not available for review at this time. US - Not available for review at this time. FINDINGS: 1.1 mCi of technetium labeled sulfur colloid was injected subcutaneously in 4 equal aliquots in the periareolar region. NM/Lymph Node Injection Only IMPRESSION: 1.1 mCi of technetium labeled sulfur colloid was injected subcutaneously in 4 equal aliquots in the periareolar region for sentinel node imaging. Electronically Signed: Alexy Samson MD at 10:17 EST ,
--- NOTE | 2023-09-15 09:30 | NM_ITS ---
PROCEDURE: NUCLEAR MEDICINE Injection [place] Node - RIGHT breast(s). REASON FOR EXAM: Female, 83 years old. Right breast cancer. TECHNIQUE: [place] node localization using radionuclide methods of the RIGHT breast(s) was performed following subcutaneous administration of 1.1 mCi of of sulfur colloid Tc-99m. COMPARISON STUDIES : NM - None. CR - Not available for review at this time. CT - Not available for review at this time. MR - Not available for review at this time. US - Not available for review at this time. FINDINGS: 1.1 mCi of technetium labeled sulfur colloid was injected subcutaneously in 4 equal aliquots in the periareolar region. NM/Lymph Node Injection Only IMPRESSION: 1.1 mCi of technetium labeled sulfur colloid was injected subcutaneously in 4 equal aliquots in the periareolar region for sentinel node imaging. Electronically Signed: Alexy Samson MD at 10:17 EST ,
--- NOTE | 2023-09-15 10:28 | HP.PCM_ITS ---
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 Is patient in pain?: No Allergies codeine Adverse Reaction (Severe, Verified 08/20/23 14:38) Nausea/Vom/Diarrhea Medications cholecalciferol (vitamin D3) 25 mcg (1,000 unit) capsule 25 mcg PO DAILY 05/29/22 [History Confirmed 08/20/23] Instant Flex 1 cap PO/SL DAILY 06/17/22 [History Confirmed 08/20/23] biotin 10,000 mcg capsule 10,000 mcg PO DAILY 06/17/22 [History Confirmed 08/20/23] zinc 50 mg tablet 50 mg PO DAILY 06/17/22 [History Confirmed 08/20/23] donepezil 10 mg tablet 10 mg PO QHS #90 tabs 07/29/23 [Rx Confirmed 08/20/23] memantine 28 mg capsule sprinkle,extended release 24hr 28 mg PO QHS #90 ea 07/29/23 [Rx Confirmed 08/20/23] trazodone 50 mg tablet 50 mg PO QHS Insomnia #90 tabs 07/29/23 [Rx Confirmed 08/20/23] ramipril 2.5 mg capsule 2.5 mg PO DAILY 08/17/23 [History Confirmed 08/20/23] PFSH Medical History Alzheimers disease Arthritis Blackout Cancer Chronic kidney disease, stage 3 unspecified Family hx of colon cancer History of colon polyps History of echocardiogram History of edema History of pain when walking History of renal disease HTN (hypertension) Hx of basal cell carcinoma Hypertension Non-smoker Osteoarthritis Shingles Sleep apnea Squamous cell skin cancer Wears glasses Wears hearing aid Surgical History Cataracts, bilateral History of cholecystectomy History of colonoscopy (~06/2017) History of tonsillectomy History of total left hip arthroplasty Hx of left cataract extraction Hx of right cataract extraction Hx of total hip arthroplasty Hx of total knee replacement S/P total knee arthroplasty Family History Brother Cancer parathyroid renal Diabetes Alzheimers disease SuicideFather Cancer prostate ArthritisSister Colon cancerMother Diabetes ArthritisSon Colon cancer Thyroid disorder Social History (Reviewed 08/20/23 @ 14:38 by Sara Campos Smoking Status: Never smoker second hand exposure: No alcohol intake: never substance use type: does not use what type of physical activity do you participate in: other 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 Biopsy results noted below demonstrate invasive ductal carcinoma right breast. The patient presents with family members today. This was a [id number] consultative 45-minute appointment. Right breast mass, core biopsy: Invasive ductal carcinoma with the follow characteristics: Maximal length ? 11.4 millimeters Nuclear grade ? 3/3 RESULTS: ANTIBODY / CLONE RESULT P53 (DO-7) positive, missense pattern Ki-67 (30-9) positive, 90% CK8 ([id number]) positive CK5-6 (D5 & 1684) negative Calponin-1 (DU184X) negative P40 (BC28) negative E-Cad (ECH-6) positive MOC-31 (4561) positive MORPHOMETRIC ANALYSIS ER (clone 6F11) 90%, strong MO (clone 16/1E2) 38%, moderate Her-2Neu (clone CB11) 0-3+ (variable) My recent notes reflect the following Visit Reasons: Birads 4 Right Breast Chief Complaint: birads 4 right breast Allergies codeine Adverse Reaction (Severe, Verified 08/17/23 10:18) Nausea/Vom/Diarrhea Medications cholecalciferol (vitamin D3) 25 mcg (1,000 unit) capsule 25 mcg PO DAILY 05/29/22 [History Confirmed 08/17/23] Instant Flex 1 cap PO/SL DAILY 06/17/22 [History Confirmed 08/17/23] biotin 10,000 mcg capsule 10,000 mcg PO DAILY 06/17/22 [History Confirmed 08/17/23] zinc 50 mg tablet 50 mg PO DAILY 06/17/22 [History Confirmed 08/17/23] donepezil 10 mg tablet 10 mg PO QHS #90 tabs 07/29/23 [Rx Confirmed 08/17/23] memantine 28 mg capsule sprinkle,extended release 24hr 28 mg PO QHS #90 ea 07/29/23 [Rx Confirmed 08/17/23] trazodone 50 mg tablet 50 mg PO QHS Insomnia #90 tabs 07/29/23 [Rx Confirmed 08/17/23] ramipril 2.5 mg capsule 2.5 mg PO DAILY 08/17/23 [History Confirmed 08/17/23] PFSH Medical History Alzheimers disease Arthritis Blackout Cancer Chronic kidney disease, stage 3 unspecified Family hx of colon cancer History of colon polyps History of echocardiogram History of edema History of pain when walking History of renal disease HTN (hypertension) Hx of basal cell carcinoma Hypertension Non-smoker Osteoarthritis Shingles Sleep apnea Squamous cell skin cancer Wears glasses Wears hearing aid Surgical History Cataracts, bilateral History of cholecystectomy History of colonoscopy (~06/2017) History of tonsillectomy History of total left hip arthroplasty Hx of left cataract extraction Hx of right cataract extraction Hx of total hip arthroplasty Hx of total knee replacement S/P total knee arthroplasty Family History (Updated 08/17/23 @ 10:16 by Heidi Pepe) Brother Cancer parathyroid renal Diabetes Alzheimers disease SuicideFather Cancer prostate ArthritisSister Colon cancerMother Diabetes ArthritisSon Colon cancer Thyroid disorder Social History Smoking Status: Never smoker second hand exposure: No alcohol intake: never substance use type: does not use what type of physical activity do you participate in: other 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 Raji Sams for surgical consultation regarding a right breast lump and a written copy my surgical consult recommendations will return to him. By report there is no complaint of discomfort. No nipple discharge. By palpation this area measures 3 x 1.5 cm. As noted below on August 10, 2023 the patient had diagnostic bilateral mammograms and right breast ultrasound. I have personally reviewed those images. There is a 1.5 x 1.9 x 1.2 cm irregular hypoechoic solid mass with increased vascularity right breast 12 o'clock position +1 cm. BI-RADS Category 4. I have personally reviewed the mammogram and ultrasound and find the area to be suspicious. 82-year-old female who in 3 days returned 83. G4, . Menarche at age 17. First child born was born when she was 21. She did breast-feed. No history of previous breast biopsy. Family history is negative for breast cancer. She simply detected the mass when brushing over her breast area. It has not been tender. She has had no nipple discharge. I have most recently assisted her on June 23, 2022 with a colonoscopy because of chronic diarrhea. Diverticulosis was noted on the left. Random biopsies showed melanosis coli. No evidence for microcytic colitis. Stool for lactoferrin was negative. August 10, 2023 MAMMOGRAPHY - BILATERAL DIAGNOSTIC REASON FOR EXAM: Female, 82 years old. Right breast. PERTINENT HISTORY: Non-contributory. TECHNIQUE: Digital bilateral breast mishel (3D mammographic acquisition) in the CC and MLO projections. 2-D mediolateral oblique (MLO) and craniocaudad (CC) views of both breasts were obtained. CAD: Full Field Digital Mammography with Computer Added Detection was performed. COMPARISON: Comparison is made with prior study dated October 22, 2022 and September 27, 2019 FINDINGS: Breast Composition: There are scattered areas of fibroglandular density. The palpable lump corresponds to a 8.5 mm x 14.8 mm nodule in the lateral aspect of the right areola. This was not seen on prior study. Correlation with ultrasound is recommended. No other significant abnormalities are identified. BI/DIAG MAMM W/CAD, BILAT IMPRESSION: Nodular density in the lateral aspect of the right areola as described. Correlation with ultrasound is recommended. ASSESSMENT CATEGORY: BIRADS Category 0: Incomplete. Need additional imaging evaluation. A letter regarding these results will be sent to the patient by the facility within 30 days. Approximately 10% of breast cancers are not detected by mammography. A normal mammogram should not delay biopsy of a clinically suspicious abnormality. Electronically Signed: Alexy Samson MD at 9:52 EST , August 10, 2023 STUDY: ULTRASOUND BREAST - RIGHT REASON FOR EXAM: Female, 82 years old. Right periareolar palpable lump TECHNIQUE: Axial and longitudinal images of the RIGHT breast were performed with a high resolution ultrasound transducer. # OF IMAGES: 20 COMPARISON: Comparison is made with prior mammogram done earlier today. FINDINGS: RIGHT Breast: The palpable abnormality corresponds to a 1.5 cm x 1.9 cm x 1.2 cm irregular hypoechoic solid mass with increased vascularity at the 12:00 position of the breast and 1 cm from the nipple. Biopsy recommended. US/Breast Limited Unilateral IMPRESSION: The palpable abnormality corresponds to a 1.5 cm x 1.9 cm x 1.2 cm irregular hypoechoic solid mass with increased vascularity. Biopsy recommended. ASSESSMENT CATEGORY: BIRADS Category 4: Suspicious - Biopsy Should Be Considered. A letter regarding these results will be sent to the patient by the facility within 30 days. Electronically Signed: Alexy Samson MD at 12:36 EST , ROS General General: No weight change, appetite, fatigue, colon cancer, breast cancer or weakness HEENT HEENT: No difficulty swallowing, eye injury, eye surgery, swollen glands or hoarseness Endo Endocrine: No thyroid disease, diabetes mellitus, thyroid cancer, Hair loss, heat intolerance or cold intolerance Skin Skin: No rash or changing moles Breast Breast: Yes right breast lump, abnormal mammogram and abnormal US; No left breast lump, nipple discharge, breast pain or breast enlargement Musc Musculoskeletal: No back problems, arthritis, rheumatoid arthritis, gout or joint pain Cardio Cardiovascular: Yes high blood pressure; No murmur, pacemaker, heart disease, atrial fibrillation, heart attack, heart stent, palpitations, shortness of breat with exertion or chest pain Psych Psychiatric: No depression, anxiety or hearing voices Resp Respiratory: No shortness of breath, No sleep apnea, No cough, No COPD, No asthma, No emphysema and No wheezing Gastro Gastrointestinal: No abdominal pain, No nausea or vomiting, No diarrhea, No constipation, No blood in stool, No acid reflux, No hemorrhoids, No ulcers, No gallbladder problem and No black,tarry stools Steven Hematologic: No blood thinners, No blood disorders, No bleeding, No anemia and No blood clots Neuro Neurologic: No system reviewed and no additional complaints, except as documented, No as per HPI, No abnormal gait, No abnormal hearing, No abnormal movements, No abnormal speech, No behavioral changes, No burning sensations, No confusion, No convulsions, No disequilibrium, No dizziness, No localized weakness, No frequent falls, No headache(s), No lack of coordination, No loss of vision, No memory loss, Yes numbness, No other visual disturbances, No radicular pain, No restless legs, No sensory deficit, No syncope, Yes tingling, No tremor(s), No weakness and No other Office Procedures Biopsy Provider Documentation Ultrasound-guided needle core right breast biopsy 12 o'clock position edge of the areola. Timeout informed consent was obtained. 82-year-old female was taken to the procedure room placed upon the table. The right breast was prepped with Betadine. Ultrasound was performed which correlated with the palpable right breast mass. 1% lidocaine mixed 50-50 with 0.5% Marcaine was used as a local anesthetic. A total of 8 cc was used. A small stab incision was created. A 14-gauge Monopty needle was advanced to prefire depth. Pre and post fire films were obtained. Cores were submitted in formalin 2 cores obtained. A marking clip was left in position. Pressure was held for hemostasis Steri-Strip Telfa OpSite dressing applied. She tolerated the procedure very well without apparent complication. Ritesh Sargent M.D., F.A.C.S. Biopsy Breast Biopsy: [id number] US Guidance Procedure Time Out Time Out Informed consent given: Yes Consent signed: Yes Time out checklist: patient, procedure, site marked/identified, positioning of patient, supplies available, allergies confirmed and team agrees on procedure Time out staff in room: Yes Time out verified: Yes Time out date: 08/17/23 Time out time: 10:00 Assessment and Plan Assessment and Plan (1) Breast mass, right: Status: Acute Qualifiers: Breast mass location: subareolar Qualified Code(s): N63.41 - Unspecified lump in right breast, subareolar Plan: Patient with a palpable right breast 12:00 retroareolar breast mass. On clinical exam it appears to be suspicious as it does both on mammogram and ultrasound. Solid cores were obtained. We will have the patient return to the office in 2 days time for pathology review and ongoing surgical treatment recommendations. I appreciate the ongoing opportunity of assisting with her surgical care. Copy: Dr. Raji Sargent M.D., F.A.C.S Assessment and Plan Assessment and Plan (1) Breast cancer, right: Status: Acute Qualifiers: Breast location: areola Estrogen receptor status: positive Patient sex: female Qualified Code(s): C50.011 - Malignant neoplasm of nipple and areola, right female breast; Z17.0 - Estrogen receptor positive status [ER+] Plan: 82-year-old female. She has invasive ductal carcinoma 12:00 retroareolar position right breast. No palpable adenopathy. The lesion based upon ultrasound and mammography at maximum measures1.9 x 1.5 x 1.2 cm. This is an area that the patient was able to palpate. There is a real possibility that it involves the areolar dermis. Discussion revolved around breast conservation technique versus mastectomy. I extensively discussed the technique of nuclear tracer and blue dye right axillary sentinel lymph node biopsy with possible conversion to axillary dissection if indicated Much of the time then was spent discussing a potential lumpectomy and comparing contrasting this to a right total mastectomy. The issue at hand being that the areola and nipple cannot be spared with the location of this tumor and so a transverse elliptical excision/subtotal mastectomy would be required leaving the patient with a lack of nipple areolar complex and diminished volume size of the right breast as compared to the left. She is estrogen receptor positive. If she could potentially avoid radiation therapy then perhaps the lesser surgery of the lumpectomy with the separate axillary sentinel node biopsy might be of value. If because of the potential of dermal involvement she would require radiation therapy whether she had the lumpectomy or even a total mastectomy then perhaps the lesser procedure would be of value so as to avoid the risks of flap necrosis and increased risk of seroma that is associated with mastectomy. I am definitively recommending hematology oncology consultation and family members have requested an appointment and referral to Dr. Ritchie Obregon. We will make that request. Tentatively we will look at scheduling an operative date. The operation at hand would either be a right axillary blue dye and nuclear tracer sentinel node biopsy with right breast lumpectomy which would be a subtotal mastectomy to include the nipple areolar complex versus a right axillary nuclear tracer and blue dye sentinel node biopsy with right total mastectomy. I appreciate the opportunity to continue with her surgical care and we will continue to expedite her management. Copy: Dr. Raji Sargent M.D., F.A.C.S. The patient has elected to proceed with a right axillary nuclear tracer and blue dye sentinel lymph node biopsy with possible conversion to an axillary dissection if indicated in combination with a right total mastectomy. She is aware of technique, benefit, risk and alternatives. She has had an opportunity to ask and have questions answered. We will proceed as noted. Ritesh Sargent M.D., F.A.C.S.
--- NOTE | 2023-09-15 10:53 | DCINST_ITS ---
Discharge Instructions Procedure Breast Surgery Diet Discharge Diet: No restrictions Activity Discharge Activity: May Not Drive (for 2-3 days or while taking narcotic pain meds.) May shower in (days): 1 Lifting Restrictions: 10 pounds for 1 week. Dressing / Incision Call your doctor if your incision/area has: Continuous Slow Oozing and Sudden Increased Bleeding Call your doctor if you observe: Fever of 101 or Higher Suture Line Care: Avoid Pulling/Pushing and Avoid Pinching/Bending Additional Dressing/Incision Instructions:: You may remove your dressings on a daily basis. Clean the drain sites with a Q-tip and peroxide. Reapply dry gauze and tape to help secure the drains and then reapply the elastic bias ply dressing. Empty, measure, and record your drain output and bring with you to your office visit. Follow Up Care Please Follow Up With: Ritesh Sargent MD When: Please call [phone] for follow-up appointment on Wednesday, September 20, 2023 Test Results: Test results from this visit will be discussed in further detail at your follow- up appointment, if applicable. Discharge Plan Admission Admit Date/Time: 09/15/23 12:46 Primary Reason for Your Visit: Right breast cancer Attending Provider: Ritesh Sargent Primary Care Provider: Raji Sams Discharge Orders/Prescriptions Prescriptions: Continued cholecalciferol (vitamin D3) 25 mcg (1,000 unit) capsule 25 mcg PO DAILY donepezil 10 mg tablet 10 mg PO QHS Qty: 90 2RF memantine 28 mg capsule,sprinkle,ER 24hr 28 mg PO QHS Qty: 90 2RF ramipril 2.5 mg capsule 2.5 mg PO QHS biotin 10,000 mcg Capsule 10,000 mcg PO DAILY Referrals / Follow Up: Raji Sams MD [Primary Care Provider] - Disposition Disposition (needs filled in before D/C Order can be placed): Home, Self Care
[2023-09-15] MEDS: Cefazolin 2 GM in 0.9% Normal Saline (100mL Bag) 100 ML IV (12:52)
[2023-09-15] MEDS: Isosulfan Blue 1% 5 ML Vial (13:10)
--- NOTE | 2023-09-15 15:17 | OP.PCM_ITS ---
Report of Operation Date of Procedure: 09/15/23 Pre-Operative Diagnosis: Invasive ductal carcinoma right breast: Centrally plac ed Post-Operative Diagnosis: Same plus axillary lymph node metastasis Surgery/Procedure Performed:: Right axillary blue dye and nuclear tracer sentinel lymph node biopsy. Right modified radical mastectomy Description of Surgical Findings:: Timeout informed consent was obtained. 83-year-old female was taken to the op room placed on the table underwent general anesthesia. Earlier she had undergone nuclear tracer injection. The right arm was carefully wrapped with soft roll placed operating table to the right breast was prepped with alcohol 2 and half cc of isosulfan blue dye was injected retroareolar massage was performed for 3 minutes then the right breast was sterilely prepped and draped unfortunately patient has a skin condition in the inframammary fold area this was prepped and then occluded off with OpSite dressing. The patient did receive 2 g of Ancef intravenously. Transverse elliptical excision was marked then sharp dissection was performed superior flap was created first hemostasis attained with electrocautery and were needed with hemoclips or 3-0 Vicryl suture ligature dissection was formed to the axilla and on palpation palpable lymph nodes could be identified but there was no blue tracing. The neoprobe was used and the packet of lymph nodes was reactive. So I dissected free the palpable nodes and area of reactivity submitted that for frozen section. Unfortunate there appeared to be some additional palpable lymph nodes posteriorly and superiorly so I elected to complete and deal a level 1 to axillary lymph node dissection. The subscapularis and serratus anterior axillary vein and latissimus dorsi were used as margins. All tissue between those levels were carefully and tediously bluntly and sharply dissected free. Long thoracic nerve of Tatum and thoracodorsal nerves were identified and protected. Hemostasis obtained with hemoclips electrocautery or 3-0 Vicryl sutures. Lymph node packet was removed somewhat than fragments due to the previous sentinel nodes being submitted. The intercostal brachial cutaneous nerve to the upper arm was identified and preserved. Having achieved that now I completed the lower flap by making an incision raising the lower flap with electrocautery then the breast tissue was dissected off the pectoralis major with the specimen was removed a silk suture was placed in the axillary component of the breast tissue. Palpation visualization and inspection with neoprobe failed to reveal any residual disease in the right axilla. 2 stab incisions made inferior and laterally into 15 round drains were exited. There was secured to skin with 3-0 nylon. The axillary drain was shortened. The skin edges were then pleated down to the chest wall where possible with interrupted 3-0 Vicryl. Skin edges approximated with the same. Drains were activated the flaps appear to be viable. That they were flat against the chest wall. Steri-Strips were applied. The OpSite dressing was removed topical antibiotic ointment was applied to that area dry gauze dressings applied followed by bias ply wrap. Sponge and instrument and needle counts were reported to certainly be correct Specimens right axillary sentinel lymph node. Completion right axillary lymph node dissection. Right mastectomy. Drains 15 round MONO drains x 2 Blood loss minimal Patient was taken to recovery room in satisfied condition without complication Ritesh Sargent M.D., F.A.C.S. Synoptic Portion: Element Response Options Operation performed with curative intent. Yes Tracer(s) used to identify sentinel nodes in the upfront surgery (non- neoadjuvant) setting (select all that apply). Radioactive dye and blue dye Tracer(s) used to identify sentinel nodes in the neoadjuvant setting (select all that apply). Not applicable All nodes (colored or non-colored) present at the end of a dye-filled lymphatic channel were removed. Yes. The blue dye did not track well so palpation and neoprobe was used as the main device All significantly radioactive nodes were removed. Yes All palpably suspicious nodes were removed. Yes Biopsy-proven positive nodes marked with clips prior to chemotherapy were identified and removed. Not applicable Synoptic Portion: Element Response Options Operation performed with curative intent. Yes Resection was performed within the boundaries of the axillary vein, chest wall (serratus anterior), and latissimus dorsi. Yes Nerves identified and preserved during dissection (select all that apply) long thoracic nerve of Tautm and thoracodorsal nerve and intercostal brachial cutaneous nerve to the upper arm Level III nodes were removed. No Surgeon: Ritesh Sargent Type of Anesthesia: General Anesthesiologist: Leida Whittington
[2023-09-15] MEDS: Bacitracin 500 UNITS/GM PACKET (15:21)
[2023-09-15] MEDS: Cefazolin 1 GM/50 ML BAG IV (20:19)
[2023-09-15] MEDS: Ramipril 2.5 MG Capsule PO (20:20)
[2023-09-16] MEDS: Cefazolin 1 GM/50 ML BAG IV (01:07)
[2023-09-16 02:09] VITALS: BP 126/78; PULSE 80; RESP 16; TEMP 36.9; O2SAT 97
[2023-09-16 06:07] VITALS: BP 139/77; PULSE 76; RESP 16; TEMP 36.8; O2SAT 96
--- NOTE | 2023-09-16 06:11 | PCM.PN.SRG ---
Subjective Subjective Patient appears to be doing well postoperatively. She denies any pain. Objective Data Objective Data Vital Signs: Vital Signs Temp Pulse Resp BP Pulse Ox O2 Del Method 98.2 F 76 16 139/77 H 96 Room Air 09/16/23 06:07 09/16/23 06:07 09/16/23 06:07 09/16/23 06:07 09/16/23 06:07 09/16/23 06:07 Oxygen Delivery Method Room Air Weight: 158 lb 15.253 oz Body Mass Index (BMI) 29.0 Intake & Output: Intake and Output for Last 24 Hours 09/14/23 09/15/23 09/16/23 23:59 23:59 23:59 Intake Total 160 / 560 850 / 850 Output Total 65 / 565 530 / 530 Balance 95 / -5 320 / 320 Lab / Micro Data 09/09/23 09:35 09/09/23 09:35 Radiography Diagnostic Testing: Radiology Impression [place] Node 09/15/23 09:30 IMPRESSION: 1.1 mCi of technetium labeled sulfur colloid was injected subcutaneously in 4 equal aliquots in the periareolar region for sentinel node imaging. Electronically Signed: Alexy Samson MD at 10:17 EST , Physical Exam Resp normal respiratory effort Resp Narrative: Right mastectomy site appears to be clean and dry. Some ecchymosis in the axillary area. MONO drains draining small amount of fluid. Assessment & Plan Assessment/Plan (1) Breast cancer, right: QUALIFIERS: Breast location: areola Estrogen receptor status: positive Patient sex: female Qualified Code(s): C50.011 - Malignant neoplasm of nipple and areola, right female breast; Z17.0 - Estrogen receptor positive status [ER+] PLAN: Plan discharge today after dressing change. The patient's progress is actually quite good. Anticipate office follow-up on Wednesday, September 20, 2023. Ritesh Sargent M.D., F.A.C.S.
--- NOTE | 2023-09-16 06:11 | PCM.PN.SRG ---
Subjective Subjective Patient appears to be doing well postoperatively. She denies any pain. Objective Data Objective Data Vital Signs: Vital Signs Temp Pulse Resp BP Pulse Ox O2 Del Method 98.2 F 76 16 139/77 H 96 Room Air 09/16/23 06:07 09/16/23 06:07 09/16/23 06:07 09/16/23 06:07 09/16/23 06:07 09/16/23 06:07 Oxygen Delivery Method Room Air Weight: 158 lb 15.253 oz Body Mass Index (BMI) 29.0 Intake & Output: Intake and Output for Last 24 Hours 09/14/23 09/15/23 09/16/23 23:59 23:59 23:59 Intake Total 160 / 560 850 / 850 Output Total 65 / 565 530 / 530 Balance 95 / -5 320 / 320 Lab / Micro Data 09/09/23 09:35 09/09/23 09:35 Radiography Diagnostic Testing: Radiology Impression [place] Node 09/15/23 09:30 IMPRESSION: 1.1 mCi of technetium labeled sulfur colloid was injected subcutaneously in 4 equal aliquots in the periareolar region for sentinel node imaging. Electronically Signed: Alexy Samson MD at 10:17 EST , Physical Exam Resp normal respiratory effort Resp Narrative: Right mastectomy site appears to be clean and dry. Some ecchymosis in the axillary area. MONO drains draining small amount of fluid. Assessment & Plan Assessment/Plan (1) Breast cancer, right: QUALIFIERS: Breast location: areola Estrogen receptor status: positive Patient sex: female Qualified Code(s): C50.011 - Malignant neoplasm of nipple and areola, right female breast; Z17.0 - Estrogen receptor positive status [ER+] PLAN: Plan discharge today after dressing change. The patient's progress is actually quite good. Anticipate office follow-up on Wednesday, September 20, 2023. Ritehs Sargent M.D., F.A.C.S.
[2023-09-16 09:08] VITALS: BP 118/78; PULSE 89; RESP 16; TEMP 37.4; O2SAT 95
--- NOTE | 2023-09-16 09:17 | CASEMGMT ---
Social Work SW met with pt to discuss advance directives.? Pt confirms she has completed a living will and health care POA naming her Yuriy Ortez. Alternates are her children Kishan Ortez and Italo Miller.? Pt notified that documents are not on file at [facility] and SW requested they be brought in for scanning into the EMR.? MARK Whitney
--- NOTE | 2023-09-16 09:17 | CASEMGMT ---
Social Work SW met with pt to discuss advance directives.? Pt confirms she has completed a living will and health care POA naming her Yuriy Ortez. Alternates are her children Kishan Ortez and Italo Miller.? Pt notified that documents are not on file at [facility] and SW requested they be brought in for scanning into the EMR.? MARK Whitney
--- NOTE | 2023-09-16 09:24 | CASEMGMT ---
FELI DSOUZA Assessment: Face to Face with pt for initial transition planning/care coordination assessment. FELI DSOUZA introduced self and role at [facility], pt voices understanding and consents to assessment. Pt is A&O x4 and answers all questions appropriately at this time. Pt sitting up in computer chair doing her hair with daughter at bedside. Pt agreeable to speaking with daughter present. Care providers, pharmacy, and demographics verified/updated. Admitting Dx: R breast cancer PCP:Dr. Sams Specialists: Dr. Sargent, Dr Obregon Preferred Pharmacy: [facility] Insurance: [facility] Prescription Benefit: yes LNOK: Tyler Puckett Living Arrangements: Pt lives home with spouse. Home is 1.5 stories, but the main living area including bed and bath is on the main level. There are 2 steps to enter the home with railing on one side. Pt is independent at baseline. Spouse does the grocery shopping. Transportation: Pt drives self and denies concerns with transportation. DME: [employer], has a walker but does not use it. HHC/SNF: Denies Pt Goal: Home Plan: Home Pt has DC orders. Pt states no concerns with going home at time of dc. Pt states no further concerns/needs. Pt has support from multiple family members that are RNs and student RNs. Daughter is supportive as well. Bedside RN has already completed teaching for managing her drains and dressings. Heaven Blanc MSN, RN, CCM
== END 2023-09-16 09:41 | disposition home or self-care (01) ==
LOC: SDC 15:37 → MS3 15:38
PROVIDERS: Admitting Provider Surgery; PCP Family Medicine; Referring Provider Surgery; Visit Provider Surgery
PROC: (CPT 19307; principal; 2023-09-15 12:45)
DX: C50.011 Malignant neoplasm of nipple and areola, right female breast (principal); C77.3 Secondary and unspecified malignant neoplasm of axilla and upper limb lymph nodes; G30.9 Alzheimer's disease, unspecified; F02.80 Dementia in other diseases classified elsewhere, unspecified severity, without behavioral disturbance, psychotic disturbance, mood disturbance, and anxiety; N18.30 Chronic kidney disease, stage 3 unspecified; I12.9 Hypertensive chronic kidney disease with stage 1 through stage 4 chronic kidney disease, or unspecified chronic kidney disease; I25.10 Atherosclerotic heart disease of native coronary artery without angina pectoris; Z17.0 Estrogen receptor positive status [ER+]; G62.9 Polyneuropathy, unspecified; G47.30 Sleep apnea, unspecified; M19.90 Unspecified osteoarthritis, unspecified site
CPT/HCPCS: 19307; 00404; 38525; 36415; 38792; 80053; 85027; 88305; 88307; 88331; 88332; 88341; 88342; 93005; 94668; 96365; 96366; 99221; A4648; A9541; G0378; J2405; Q9968

== ENCOUNTER → 2024-01-24 | Outpatient (CLI) | payer MEDICARE, SELFPAY ==
--- NOTE | 2024-01-24 12:34 | RAD_ITS ---
EXAM: XR LUMBOSACRAL SPINE, 2 OR 3 VIEWS CLINICAL INDICATION: gait disorder; hx breast cancer TECHNIQUE: Frontal and lateral views of the lumbar spine and sacrum. COMPARISON: No relevant prior studies available. FINDINGS: VERTEBRAE: No suspicious bone lesion.: No acute abnormality. Spondylosis as described. No acute fracture or subluxation. DISC SPACES: Mild multilevel disc space narrowing. Prominent multilevel facet arthropathy. Minimal anterior listhesis of L4 on L5 related to the facet joint changes. RAD/Lumbar Spine 2 or 3 Views IMPRESSION: No acute findings in the lumbar spine. Electronically Signed: José Finch MD at 13:10 EDT ,
[2024-01-24 15:30] LABS: Hematocrit 37.8 % (37-47); Hemoglobin 11.8 g/dL (12.0-15.0); Mean Corp Hgb Conc 31.2 g/dL (32-36); Mean Corpuscular Hgb 32.2 pg (27.0-32.0); Mean Platelet Vol. 10.8 fl (6.2-12.0); Platelet Count 248 K/mm3 (150-450); RBC Distribution Width CV 14.6 % (11.6-14.6); RBC Distribution Width SD 54.7 fl (35.1-43.9); Red Blood Count 3.67 M/mm3 (4.2-5.4)
[2024-01-24 16:06] LABS: ALB/GLOB Ratio 0.9 RATIO (0.9-2.4); AST(SGOT) 46 U/L (15-37); Alanine Aminotransfer ALT/SGPT 33 U/L (13-56); Albumin, Serum 3.1 g/dL (3.2-5.0); Alkaline Phosphatase 91 U/L (45-117); Anion Gap 6 (5-15); BUN 15 mg/dL (7-18); Chloride 107 mmol/L (98-107); EST Glomerular Filtration Rate 56 mL/min (>60); Est Glom Filt Rate - Afr Amer 68 mL/min (>60); Globulin 3.6 g/dL (2.2-4.2); Glucose 90 mg/dL (74-106); Potassium 4.3 mmol/L (3.5-5.1); Protein, Total 6.7 g/dL (6.4-8.2); Sodium Level 140 mmol/L (136-145); Thyroid Stim Hormone (TSH) 2.63 uIU/mL (0.358-3.74)
[2024-01-24 17:19] LABS: Vitamin B12 652 pg/mL (211-911)
[2024-02-01 09:09] LABS: Free Lambda Light Chains 36.3 mg/L (5.7-26.3); Immunoglobulin A 243 mg/dL (64-422); Immunoglobulin M 170 mg/dL (26-217); PROEL- TOTAL PROTEIN 6.2 g/dL (6.0-8.5); Vitamin B1, Thiamine 112.5 nmol/L (66.5-200.0)
== END | disposition home or self-care (01) ==
PROVIDERS: PCP Family Medicine; Referring Provider Psychiatry & Neurology Neurology; Visit Provider Psychiatry & Neurology Neurology
DX: G62.9 Polyneuropathy, unspecified (principal); I10 Essential (primary) hypertension; R26.9 Unspecified abnormalities of gait and mobility; Z85.3 Personal history of malignant neoplasm of breast
CPT/HCPCS: 36415; 72100; 80053; 82607; 82746; 82784; 83883; 84165; 84425; 84443; 85027; 86334; 86335

== ENCOUNTER → 2024-02-28 | Outpatient (CLI) | payer MEDICARE, SELFPAY ==
--- NOTE | 2024-02-28 14:14 | NEURO_ITS ---
NCS and/or EMG Patient Report Ordering Doctor: Domingo Martinez DATE OF SERVICE: 02/28/24 Clinical Summary: 83 year old female patient with symptoms of numbness and tingling in the distal lower extremities bilaterally. A bilateral lower extremity EMG/NCS was performed. Nerve Conduction Studies Summary: The distal peroneal motor conduction velocities were reduced. Otherwise, nerve conduction studies performed in the bilateral lower extremities were within normal ranges for the patient's age. Needle Examination Summary: Needle examination of the bilateral lower extremities demonstrated increased insertional activity and spontaneous activity (positive sharp waves and fibrillation potentials) in the medial gastrocnemius muscles bilaterally. There was a higher proportion of motor unit action potentials with reduced recruitment, increased amplitude, increased duration, and polyphasia in the bilateral biceps femoris (long head), left semitendinosus, left vastus lateralis, left tibialis anterior, left peroneus longus, bilateral medial gastr ocnemius, and left flexor digitorum longus muscles. Impression: There is electrodiagnostic evidence of the following - 1) Chronic, left L4 to S1 radiculopathy 2) Chronic, right S1 radiculopathy 3) Reduced distal motor conduction velocities and active denervation seen in distal muscles, as seen in this study, is suggestive of a length dependent, predominantly axonal, peripheral polyneuropathy Multi Select Codes Neurology Neurology Interp Codes: 80403-55 Musc test done w/n test comp (interp) (2) and 23952-37 Nrv cndj test 7-8 studies (interp)
== END | disposition home or self-care (01) ==
PROVIDERS: PCP Family Medicine; Referring Provider Psychiatry & Neurology Neurology; Visit Provider Psychiatry & Neurology Neurology
DX: R20.2 Paresthesia of skin (principal); G62.9 Polyneuropathy, unspecified; M54.50 Low back pain, unspecified
CPT/HCPCS: 95886; 95911

== ENCOUNTER → 2024-03-14 | Outpatient (CLI) | payer MEDICARE, SELFPAY ==
--- NOTE | 2024-03-14 17:27 | RAD_ITS ---
EXAM: XR CHEST, 2 VIEWS CLINICAL INDICATION: LLL rales, fever TECHNIQUE: Frontal and lateral views of the chest. COMPARISON: 09/09/2023 FINDINGS: LUNGS AND PLEURAL SPACES: No significant abnormality. No consolidation or edema. No pneumothorax. No effusion. HEART: No significant abnormality. Cardiac silhouette not enlarged. MEDIASTINUM: Central airways and mediastinal contour are unremarkable. BONES/JOINTS: Degenerative changes in the spine. No acute fracture. SOFT TISSUES: Right axillary and/or chest wall surgical clips. VASCULATURE: Atherosclerosis. RAD/Chest PA and Lateral IMPRESSION: No acute findings in the chest. Electronically Signed: Cesar Ambrosio DO at 23:58 EDT ,
== END | disposition home or self-care (01) ==
LOC: MTRAD 17:27
PROVIDERS: PCP Family Medicine; Referring Provider Family Medicine; Visit Provider Family Medicine
DX: R09.89 Other specified symptoms and signs involving the circulatory and respiratory systems (principal)
CPT/HCPCS: 71046

== ENCOUNTER → 2024-06-13 | Outpatient (CLI) | payer MEDICARE, SELFPAY ==
[2024-06-16 16:10] LABS: Albumin 3.4 g/dL (2.9-4.4); Alpha-1-Globulins 0.2 g/dL (0.0-0.4); Alpha-2-Globulins 0.6 g/dL (0.4-1.0); Gamma Globulin 1.3 g/dL (0.4-1.8); Immunoglobulin A 232 mg/dL (64-422); Immunoglobulin G 1163 mg/dL (586-1602); Immunoglobulin M 163 mg/dL (26-217); PROEL- TOTAL PROTEIN 6.5 g/dL (6.0-8.5)
== END | disposition home or self-care (01) ==
PROVIDERS: PCP Family Medicine; Visit Provider Psychiatry & Neurology Neurology
DX: G62.9 Polyneuropathy, unspecified (principal)
CPT/HCPCS: 36415; 82784; 84165; 86334

== ENCOUNTER 2025-01-04 10:00 | Outpatient (RCR) | payer MEDICARE, SELFPAY ==
--- NOTE | 2024-11-28 14:41 | HP.PTEVAL_ITS ---
Patient's Visit Information Visit Information Visit Information: DREW BROWNE is a 84 year old F referred to Physical Therapy by Dr. Raji Sams MD with a diagnosis of SHLD PAIN, NECK PAIN AND POSTURE CHANGES. Date of Evaluation: 11/27/24 Physical Therapist: Ally Garcia PT, Cert MDT Visit Plan Frequency: 2x /Week Duration: 4-6 Weeks Plan: Scapular Strengthening and B Pec/UT/Levator/Scalene Stretching to help reduce stress on Cervical Spine with Daily Activities. US at 1.3 TO 1.5 W/CM2 100% to B SHLD Musculature in Sitting as needed. Instruction in Proper Posture Control, Ergonomics with ADL's and Appropriate Activity Modifications. Manual Therapy for gentle AAROM/PROM, grade I, II and III shld joint mobilization to decrease pain and increase ROM in comfortable ROM. Sujata UE ROM/Stretching and Strengthening - consider Miguel's. HEP Instructions. Subjective Subjective: Work/Leisure: RETIRED Present symptoms: SUJATA SHLD PAIN. NECK PAIN TOO BUT SHLD'S HURT MORE THAN NECK. DENIES SUJATA UE NUMBNESS AND TINGLING. NECK AND SHLD STIFFNESS. ARM WEAKNESS. Present since: ~2022 Getting Better, Getting Worse or Staying the Same: STAYING THE SAME Pain Scale: Worst - 8/10 Least - 0/10 Currently: 0/10 Commenced as a result of: NO APPARENT REASON Symptoms at onset: SHLD PAIN BUT NOT SURE WHICH ONE Worse: RAISING ARMS, ROLLING OVER IN BED, LIFTING ANYTHING, TRYING TO DO HAIR, TRYING TO GET A COMFORTABLE PLACE IN BED, IF SOMEONE TAKES MY HAND WRONG WHEN SHAKING HANDS, GETTING IN AND OUT OF CLOTHES. CHANGING CLOTHES AND DOING HAIR ARE BIG ONES. Better: JUST QUIT DOING WHAT I'M DOING. I DON'T HAVE PAIN LONG I'M NOT DOING ANYTHING. Disturbed sleep: YES Previous history/Previous treatment: UNREMARKABLE This episode: 2 MASSAGES IN 2023 AND 2 MASSAGES IN 2024 THAT HAVE BEEN HELPFUL. NO MEDICATION OR CHIROPRACTIC. Dizziness: NO Tinnitus: YES Nausea: NO Shortness of Breath: NO Difficulty Swallowing: NO Gait: NO AD'S. STATES SHE HAS A HARD TIME WHEN SHE FIRST STANDS UP AND THEN PRETTY GOOD. STATES KNEES ARE ALWAYS STIFF. L TKR AND SUJATA THR'S. R HIP HURTS WHEN GETS TIRED. ONE FALL IN GARDEN WHEN BACKING UP IN GARDEN ABOUT 3 WEEKS AGO ON [place] BUT DID NOT GET HURT. Accidents: NO Unexplained weight loss: NO Imaging: NONE RECENT OF NECK OR SHLD'S. PMH/Recent major surgery: BREAST CANCER TREATED WITH CHEMO AND RADIATION IN 2023. HTN. Objective Objective: Sitting Posture/Standing Posture: TANNER FH. RH'S L>R. L TORTICOLLIS. Active Correction of posture: ABLE TO PARTIALLY CORRECT. DOES NOT MAINTAIN AND HAS NE ON NECK OR SHLD PAIN. Other Observations: INDEP GAIT INTO PT. DIFFICULTY INITIATING GAIT WITH LIMP ON R LE THEN GAIT STARTS TO SMOOTH OUT. INDEP GAIT X > 300 FEET BACK TO TREATMENT ROOM WITHOUT LOB OR USE OF AD. Sensory deficit: SUJATA UE LIGHT TOUCH SENSATION GROSSLY INTACT AND SYMMETRICAL ROM deficit: ACTIVE ELEVATION OF R UE = 114 DEG (PATIENT IS R HAND DOMINANT), 104 DEG LEFT. ABD R 100 DEG, L 60 DEG. Motor deficit: R SHLD FLEX 2+/5, ABD 2/5, ER 2+/5, IR 3-/5, ELBOW FLEX 4-/5, ELBOW EXT 4-/5. L SHLD FLEX 2-/5, ABD 2-/5, ER 2-/5, IR 3-/5, ELBOW FLEX 4-/5, ELBOW EXT 4-/5 . 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 Postural strength: POOR Balance/Special Test Scores Quick DASH Score: 61.3625 Goals Goal 1:: DECREASE C/O NECK AND UE SX'S BY AT LEAST 50% TO EASE ADL'S. Goal Time Frame: 6-8 Weeks Goal 2:: IMPROVE UE FUNCTION WITH AT LEAST 10 POINT IMPROVEMENT IN QUICK DASH QUESTIONNAIRE SCORE Goal Time Frame: 6-8 Weeks Goal 3:: INDEP HEP Goal Time Frame: 6-8 Weeks Rehabilitation Potential Physical Therapy Diagnosis: POSTURAL AND UE STIFFNESS AND WEAKNESS LIMITING ADL'S Rehabilitation Potential: Good Anticipated Interventions Patient/Client Instruction: Educate patient on: Condition, Plan of Care and Risk Factors For the Purpose of:: To improve self management Therapeutic Exercise to Include: Strength training, Body mechanics, Postural training, Flexibilty training, Neuromotor development, Active ROM and Scapular Strength/Stabilization For the Purpose of:: To decrease pain, To increase ROM, To improve muscle performance and motor function, To improve ability to perform ADL's, To increase tolerance to activity/condition/position, To improve ability of physical actions for home/community/work/leisure, To decrease soft tissue restriction, To increase flexibility/ROM and To improve self management Manual Therapy Techniques to Include: Mobilization and Passive ROM For the Purpose of:: To decrease pain, To increase ROM, To decrease soft tissue restriction and To increase flexibility/ROM Cryotherapy (ice pack, ice massage): Yes Thermo therapy (hot pack): Yes Ultrasound (thermal/non thermal): Yes For the Purpose of:: To decrease pain, To decrease swelling/inflammation and To improve nutrient delivery to tissue Text: Thank you for the opportunity to evaluate your patient. For Medicare and Medicare HMO plans, please review the plan of care and approve it. It will need to be FAXED BACK to us at [phone] for Medicare purposes. For Medicare only, by signing this I certify the plan of care. Please let me know if there are questions or concerns regarding this plan of care. Physician Signature: Date:
--- NOTE | 2025-01-04 11:38 | HP.PTDCSUM ---
Discharge Summary D/C summary: It has been my pleasure to treat DREW BROWNE referred by Dr. Raji Sams MD, with the diagnosis of SHLD PAIN, NECK PAIN AND POSTURE CHANGES for a total of 10 visit(s). Discharge Date: 01/04/25 Please see the following information for a summary of their discharge status. Subjective Subjective: PATIENT REPORTS SHE FELT REALLY GOOD AFTER LAST VISIT. I THINK IF I JUST KEEP DOING THE EX'S THEY WILL HELP MORE. PATIENT REPORTS HER L SHOULDER WAS DOING OK UNTIL SHE WENT TO BED LAST NIGHT THEN IT SRARTED HURTING FOR NO APPARENT REASON AND IT IS STILL HURTING. PATIENT REPORTS SHE WANTS TO STOP FORMAL PT AT THIS TIME AND CONTINUE ON HER OWN WITH THE EX'S SHE HAS. Pain R UPPER ARM: Pain Intensity (Out of 10): 4 L UPPER ARM: Pain Intensity (Out of 10): 1 Overall Improvement % Improvement: 50 Objective Objective/Function: PATIENT WAS ALSO SEEN TODAY FOR RE-ASSESSMENT OF PROGRESS TOWARD THE SET PT GOALS AND THE NEED FOR FURTHER PHYSICAL THERAPY VS READINESS FOR DISCHARGE. PATIENT IS MAKING SLOW PROGRESS WITH PT AND IS A GOOD CANDIDATE TO CONTINUE PT BASED ON PROGRESS MADE AND ROOM FOR FURTHER IMPROVEMENT BUT SHE IS REQUESTING TON STOP AND CONTINUE WITH HEP AT THIS TIME. ALSO SEEN FOR MANUAL THERAPY AND HEP INSTRUCTON TODAY WITH GOOD RESPONSE. UPON EXAM TODAY ROM deficit: ACTIVE ELEVATION OF R UE = 124 DEG (PATIENT IS R HAND DOMINANT), 107 DEG LEFT. ABD R 111 DEG, L 80 DEG. Motor deficit: R SHLD FLEX 2+/5, ABD 2/5, ER 2+/5, IR 3-/5, ELBOW FLEX 4-/5, ELBOW EXT 4-/5. L SHLD FLEX 2-/5, ABD 2-/5, ER 2-/5, IR 3-/5, ELBOW FLEX 4-/5, ELBOW EXT 4-/5 . 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 Goals Goal 1:: DECREASE C/O NECK AND UE SX'S BY AT LEAST 50% TO EASE ADL'S. Goal Progress: Goal Met Goal 2:: IMPROVE UE FUNCTION WITH AT LEAST 10 POINT IMPROVEMENT IN QUICK DASH QUESTIONNAIRE SCORE Goal Progress: Goal Met Goal 3:: INDEP HEP Goal Progress: Goal Met Plan Plan: D/C TO INDEP EX AT PATIENTS REQUEST. D/C Information d/c sentence: If there are questions or concerns regarding this patient's physical therapy, please feel free to call me at [phone]. Thank you for the referral of this patient. Sincerely, Ally Garcia, PT, Cert MDT Balance/Gait/Functional tests Balance/Special Test Scores Quick DASH Score: 34.0900 Improvement % Improvement: 50
== END 2025-01-04 19:00 | disposition home or self-care (01) ==
LOC: PT 10:00
PROVIDERS: PCP Family Medicine; Referring Provider Family Medicine; Visit Provider Family Medicine
DX: M54.2 Cervicalgia (principal); M25.519 Pain in unspecified shoulder; M16.9 Osteoarthritis of hip, unspecified; M19.019 Primary osteoarthritis, unspecified shoulder
CPT/HCPCS: 97035; 97110; 97140; 97162; 97530

== ENCOUNTER → 2025-03-02 | Outpatient (CLI) | payer MEDICARE, SELFPAY ==
--- NOTE | 2025-03-02 11:46 | RAD_ITS ---
PROCEDURE: CHEST PA AND LATERAL 03/02/2025 REASON FOR EXAM: FATIGUE AND HX OF BREAST CANCER TECHNIQUE: CHEST PA AND LATERAL COMPARISON: Chest x-ray of 03/14/2024. RAD/Chest PA and Lateral IMPRESSION: Prominent aortic calcification is again present. The cardiomediastinal silhoue tte within the normal range. Right axillary/right breast area of surgical clips are again seen. Lungs appear clear of acute disease, and unchanged. No pleural effusion or pneumothorax is seen. No interval osseous change is noted. Reading Location: [place] [id number]
[2025-03-02 15:45] LABS: Hematocrit 40.2 % (37-47); Hemoglobin 12.8 g/dL (12.0-15.0); Immature Granulocytes Count 0.010 X10^3/uL (0.0-0.0); Mean Corp Hgb Conc 31.8 g/dL (32-36); Mean Corpuscular Volume 101.0 fL (81-99); Mean Platelet Vol. 10.5 fl (6.2-12.0); NRBC Flagged by Analyzer 0 % (0-5); Platelet Count 211 K/mm3 (150-450); RBC Distribution Width CV 13.2 % (11.6-14.6); RBC Distribution Width SD 48.7 fl (35.1-43.9); Red Blood Count 3.98 M/mm3 (4.2-5.4); White Blood Count 5.1 K/mm3 (4.4-11.0)
[2025-03-02 16:23] LABS: AST(SGOT) 28 U/L (<=31); Alanine Aminotransfer ALT/SGPT 11 U/L (<=34); Albumin, Serum 4.2 g/dL (3.4-4.8); Alkaline Phosphatase 96 U/L (35-104); Anion Gap 9 (5-15); BUN 20 mg/dL (4-19); BUN/Creat Ratio 19.0 RATIO (10-20); Calcium,Total 9.5 mg/dL (7.6-11.0); Carbon Dioxide 26.9 mmol/L (21.0-32.0); Chloride 104 mmol/L (98-108); Ferritin 77 ng/mL (22-378); Globulin 2.9 g/dL (2.2-4.2); Glucose 97 mg/dL (70-99); Potassium 4.2 mmol/L (3.3-5.1)
[2025-03-02 17:51] LABS: Vitamin B12 1217 pg/mL (180-914); Vitamin D,25 Hydroxy 86.8 ng/mL (30-100)
[2025-03-02 18:19] LABS: FOLATES,SERUM (FOLIC ACID) 10.70 ng/mL (4.60-34.80)
[2025-03-05 13:08] LABS: CA 15-3 28.8 U/mL (0.0-25.0); CA 27.29 35.2 U/mL (0.0-38.6); PROEL- A/G Ratio 1.1 (0.7-1.7); PROEL- Albumin 3.6 g/dL (2.9-4.4); PROEL- Alpha-1 Globulin 0.2 g/dL (0.0-0.4); PROEL- Alpha-2 Globulin 0.6 g/dL (0.4-1.0); PROEL- Beta Globulin 1.0 g/dL (0.7-1.3); PROEL- Gamma Globulin 1.3 g/dL (0.4-1.8); PROEL- Globulin, Total 3.2 g/dL (2.2-3.9); PROEL- TOTAL PROTEIN 6.8 g/dL (6.0-8.5); PROEL-M-Spike Not Observed g/dL (Not Observed)
== END | disposition home or self-care (01) ==
LOC: MTLAB 11:45
PROVIDERS: PCP Family Medicine; Referring Provider Family Medicine; Visit Provider Family Medicine
DX: C50.911 Malignant neoplasm of unspecified site of right female breast (principal); N18.31 Chronic kidney disease, stage 3a; R53.83 Other fatigue
CPT/HCPCS: 36415; 71046; 80053; 82306; 82607; 82728; 82746; 84165; 84443; 85025; 86300

== ENCOUNTER → 2025-04-03 | Outpatient (CLI) | payer MEDICARE, SELFPAY | END | disposition home or self-care (01) | LOC: LABSPEC 13:09 | PROVIDERS: PCP Family Medicine; Referring Provider Family Medicine; Visit Provider Family Medicine | DX: N39.0 Urinary tract infection, site not specified (principal) | CPT/HCPCS: 87077; 87086; 87088; 87186 ==

== ENCOUNTER → 2025-06-08 | Outpatient (CLI) | payer MEDICARE, SELFPAY ==
[2025-06-08 12:36] LABS: Hematocrit 39.9 % (37-47); Hemoglobin 13.2 g/dL (12.0-15.0); Immature Granulocytes Count 0.010 X10^3/uL (0.0-0.0); Mean Corp Hgb Conc 33.1 g/dL (32-36); Mean Corpuscular Volume 98.8 fL (81-99); Mean Platelet Vol. 10.0 fl (6.2-12.0); NRBC Flagged by Analyzer 0 % (0-5); Platelet Count 202 K/mm3 (150-450); RBC Distribution Width CV 13.3 % (11.6-14.6); RBC Distribution Width SD 47.8 fl (35.1-43.9); Red Blood Count 4.04 M/mm3 (4.2-5.4); White Blood Count 6.4 K/mm3 (4.4-11.0)
[2025-06-08 13:57] LABS: AST(SGOT) 26 U/L (<=31); Alanine Aminotransfer ALT/SGPT 11 U/L (<=34); Albumin, Serum 4.2 g/dL (3.4-4.8); Alkaline Phosphatase 93 U/L (35-104); Anion Gap 9 (5-15); BUN 19 mg/dL (4-19); BUN/Creat Ratio 18.8 RATIO (10-20); Calcium,Total 9.7 mg/dL (7.6-11.0); Carbon Dioxide 27.7 mmol/L (21.0-32.0); Chloride 104 mmol/L (98-108); Globulin 3.2 g/dL (2.2-4.2); Glucose 93 mg/dL (70-99); Potassium 4.4 mmol/L (3.3-5.1); Vitamin D,25 Hydroxy 87.1 ng/mL (30-100)
[2025-06-08 13:58] LABS: CRP < 3.00 mg/L (0.0-3.0)
[2025-06-11 15:08] LABS: PROEL- A/G Ratio 1.2 (0.7-1.7); PROEL- Albumin 3.8 g/dL (2.9-4.4); PROEL- Alpha-1 Globulin 0.2 g/dL (0.0-0.4); PROEL- Alpha-2 Globulin 0.6 g/dL (0.4-1.0); PROEL- Beta Globulin 1.0 g/dL (0.7-1.3); PROEL- Gamma Globulin 1.3 g/dL (0.4-1.8); PROEL- Globulin, Total 3.1 g/dL (2.2-3.9); PROEL- TOTAL PROTEIN 6.9 g/dL (6.0-8.5); PROEL-M-Spike Not Observed g/dL (Not Observed)
== END | disposition home or self-care (01) ==
PROVIDERS: PCP Family Medicine; Visit Provider Family Medicine
DX: R53.83 Other fatigue (principal)
CPT/HCPCS: 36415; 80053; 82306; 83036; 84165; 84443; 85025; 85652; 86140